=== PATIENT | male | born 1955 | race African-American/Black ===

== ENCOUNTER 2020-12-27 18:12 | Inpatient (IN) | payer MEDICARE ==
[~2020-12-27] VITALS: Ht 165.1 cm; Wt 32.9 kg
[2020-12-27 11:45] VITALS: BP 162/93
--- NOTE | 2020-12-27 19:27 | PHYS DOC ---
Past Medical History Past Medical History: Hypertension, Renal Failure (patient to be set up for peritoneal dialysis) (MARY ANNE ACOSTA) Past Surgical History: Other Additional Past Surgical Histo: neck and back surgery (MARY ANNE ACOSTA) Smoking Status: Never Smoker Alcohol Use: Rarely (MARY ANNE ACOSTA) General Adult EDM: Chief Complaint: SHORTNESS OF BREATH Problems: (1) Shortness of breath (MARY ANNE ACOSTA) HPI: HPI: Patient is a 65 year old male with history of hypertension who presents with shortness of breath for the past few days. Patient states that he was seen with his primary care provider at the [facility] and was provided with an albuterol inhaler at the onset of his symptoms. He states his symptoms have not improved. He reports associated weakness, decreased fluid and water intake, and orthopnea. Patient was vaccinated Gentz COVID-19 with both doses of Moderna vaccine in late June/early July. He denies having been tested for Covid at the [facility]. Patient denies fever, chills, headache, vision changes, chest pain, palpitations, cough. (MARY ANNE ACOSTA) Review of Systems: Review of Systems: Constitutional: See HPI. Eyes: Denies change in visual acuity, vision field changes. HENT: Denies nasal congestion or sore throat. Respiratory: See HPI. Cardiovascular: See HPI. Musculoskeletal: Denies back pain or joint pain. Integument: Denies rash, abrasion, other lesions. Neurologic: Denies headache, focal weakness or sensory changes. (MARY ANNE ACOSTA) Heart Score: C/O Chest Pain: No (MARY ANNE ACOSTA) Current Medications: Current Medications Medications (Trade) Dose Ordered Sig/Fabio Start Time Stop Time Status Last Admin Dose Admin Sodium Chloride 1,000 ml @ 1,000 mls/hr 1X ONCE 12/27/20 19:30 12/27/20 20:29 UNV (MARY ANNE ACOSTA) Allergies: Allergies: Allergies Coded Allergies Type Severity Reaction Last Updated Verified No Known Drug Allergies 12/27/20 No (MARY ANNE ACOSTA) Physical Exam: PE: Constitutional: Thin, well groomed, no acute distress, non-toxic appearance. HENT: Normocephalic, atraumatic, bilateral external ears normal, oropharynx appears dehydrated, no oral exudates, nose normal. Eyes: Conjunctiva normal, no discharge. Neck: Normal range of motion, no tenderness, supple, no stridor. Cardiovascular: Heart rate regular rhythm, no murmur. Lungs & Thorax: Patient is to tachypneic and only speaks in short phrases, accessory muscle use, decreased breath sounds on right side and bilateral bases. Skin: Pallor of nailbeds and poor skin turgor. Skin otherwise warm, dry, no erythema, no rash. Extremities: No tenderness, no cyanosis, no clubbing, ROM intact, no edema, distal pulses intact. Neurologic: Alert and oriented X 3, strength 5/5 in extremities x4, normal sensory function, no focal deficits noted. (MARY ANNE ACOSTA) Current Patient Data: Labs: Laboratory Tests Test 12/27/20 19:30 White Blood Count 4.8 x10^3/uL (4.0-11.0) Red Blood Count 3.39 x10^6/uL (4.30-5.70) Hemoglobin 9.8 g/dL (13.0-17.5) Hematocrit 29.9 % (39.0-53.0) Mean Corpuscular Volume 88 fL (79-100) Mean Corpuscular Hemoglobin 29 pg (25-35) Mean Corpuscular Hemoglobin Concent 33 g/dL (31-37) Red Cell Distribution Width 15.5 % (11.5-14.5) Platelet Count 393 x10^3/uL (140-400) Neutrophils (%) (Auto) 69 % (31-73) Lymphocytes (%) (Auto) 14 % (24-48) Monocytes (%) (Auto) 10 % (0-9) Eosinophils (%) (Auto) 5 % (0-3) Basophils (%) (Auto) 2 % (0-3) Neutrophils # (Auto) 3.3 x10^3/uL (1.8-7.7) Lymphocytes # (Auto) 0.7 x10^3/uL (1.0-4.8) Monocytes # (Auto) 0.5 x10^3/uL (0.0-1.1) Eosinophils # (Auto) 0.2 x10^3/uL (0.0-0.7) Basophils # (Auto) 0.1 x10^3/uL (0.0-0.2) Sodium Level 143 mmol/L (136-145) Potassium Level 4.5 mmol/L (3.5-5.1) Chloride Level 108 mmol/L (98-107) Carbon Dioxide Level 18 mmol/L (21-32) Anion Gap 17 (6-14) Blood Urea Nitrogen 72 mg/dL (8-26) Creatinine 7.0 mg/dL (0.7-1.3) Estimated GFR (Cockcroft-Gault) 9.6 Glucose Level 100 mg/dL (70-99) Calcium Level 9.1 mg/dL (8.5-10.1) Troponin I Quantitative 0.196 ng/mL (0.000-0.055) SI-Vwv-V-Type Natriuretic Peptide > 62532 pg/mL (0-124) Influenza Type A Antigen Negative (NEGATIVE) Influenza Type B Antigen Negative (NEGATIVE) SARS-CoV-2 Antigen (Rapid) Negative (NEGATIVE) Vital Signs: Vital Signs Date Time Temp Pulse Resp B/P (MAP) Pulse Ox O2 Delivery O2 Flow Rate FiO2 12/27/20 19:16 82 34 194/118 (143) 97 Room Air 12/27/20 19:08 97.2 97.2 (MARY ANNE ACOSTA) EKG: EKG: EKG Interpreted by Dr. Bailey: Rate 84bpm and regular rhythm with no ectopic beats. LVH. Prolonged QT interval. T wave inversion, no STEMI. (MARY ANNE ACOSTA) Radiology/Procedures: Radiology/Procedures: PROCEDURE: PORTABLE CHEST 1V Exam: Chest one view INDICATION: Shortness of breath TECHNIQUE: Frontal view of the chest Comparisons: None FINDINGS: The cardiomediastinal silhouette and pulmonary vessels are within normal limits. Patchy right basilar airspace disease. No pleural effusion. IMPRESSION: Patchy right basilar airspace disease may be infectious or inflammatory in etiology. Electronically signed by: Michelle Veloz MD (12/27/2020 9:35 PM) [facility] ([facility] ANNE ACOSTA) Course & Med Decision Making: Course & Med Decision Making Pertinent Labs and Imaging studies reviewed. (See chart for details) Due to patient's age and chief complaint of shortness of breath, patient will be tested for Covid as well as flu. Patient appears to be dehydrated and extremities are nonedematous, so fluids will be provided to improve hydration status. Labs show anemia and decreased kidney function, which is consistent with ESRD. Troponin is elevated at 0.196. We have no prior values to compare, so serial troponins will be ordered. BNP was over 35,000, patient will be admitted to hospitalist. Bed requested 21:10. (MARY ANNE ACOSTA) Course & Med Decision Making I have reviewed and was available for consultation in the emergency department for this patient that was seen by midlevel provider. Agree with plan. I ordered serial troponins due to elevated troponin, patient with history of chronic kidney disease Aditya Bailey DO (ADITYA BAILEY DO) Constanceon Disclaimer: Vahid Disclaimer: This electronic medical record was generated, in whole or in part, using a voice recognition dictation system. (MARY ANNE ACOSTA) Departure Departure Impression: Primary Impression: Shortness of breath Additional Impressions: Elevated brain natriuretic peptide (BNP) level ESRD (end stage renal disease) Disposition: ADMITTED INPATIENT Admitting Physician: EVERARDO Mitchell) (MARY ANNE ACOSTA) Condition: GUARDED MARY ANNE ACOSTA Dec 27, 2020 19:27 ADITYA BAILEY DO Dec 28, 2020 01:12
[2020-12-27] MEDS ORDERED: IV NORMAL SALINE 1000ML BAG 1,000 ML IV ONE (19:30)
[2020-12-27 19:48] LABS: BASO # 0.1 x10^3/uL (0.0-0.2); BASO % 2 % (0-3); EOS # 0.2 x10^3/uL (0.0-0.7); EOS % 5 % (0-3); HEMATOCRIT 29.9 % (39.0-53.0); HEMOGLOBIN 9.8 g/dL (13.0-17.5); LYMPH # 0.7 x10^3/uL (1.0-4.8); LYMPH % 14 % (24-48); MEAN CORPUSCULAR HEMOGLOBIN 29 pg (25-35); MEAN CORPUSCULAR HGB CONC 33 g/dL (31-37); MEAN CORPUSCULAR VOLUME 88 fL (79-100); MONO # 0.5 x10^3/uL (0.0-1.1); MONO % 10 % (0-9); NEUT # 3.3 x10^3/uL (1.8-7.7); NEUT % 69 % (31-73); PLATELET COUNT 393 x10^3/uL (140-400); RED BLOOD COUNT 3.39 x10^6/uL (4.30-5.70); RED CELL DISTRIBUTION WIDTH 15.5 % (11.5-14.5); WHITE BLOOD COUNT 4.8 x10^3/uL (4.0-11.0)
[2020-12-27 19:59] LABS: CALCIUM 9.1 mg/dL (8.5-10.1); GFR 9.6; POTASSIUM 4.5 mmol/L (3.5-5.1)
[2020-12-27 20:03] LABS: INFLUENZA A PATIENT NEGATIVE (NEGATIVE); INFLUENZA B PATIENT NEGATIVE (NEGATIVE)
[2020-12-27] MEDS ORDERED: LABETALOL 20 MG/4 ML DISP.SYRIN. IVP ONE (21:30)
--- NOTE | 2020-12-27 21:38 | RAD ---
Exam: Chest one view INDICATION: Shortness of breath TECHNIQUE: Frontal view of the chest Comparisons: None FINDINGS: The cardiomediastinal silhouette and pulmonary vessels are within normal limits. Patchy right basilar airspace disease. No pleural effusion. IMPRESSION: Patchy right basilar airspace disease may be infectious or inflammatory in etiology. Electronically signed by: Michelle Veloz MD (12/27/2020 9:35 PM) [facility]
[2020-12-28] MEDS ORDERED: GABA600T7 PO (02:38)
[2020-12-28] MEDS ORDERED: FLUO40CA2 PO (02:38)
[2020-12-28] MEDS ORDERED: FERR325T14 PO (02:38)
[2020-12-28] MEDS ORDERED: MELA3TAB4 PO (02:38)
[2020-12-28] MEDS ORDERED: HYDR-2868 PO (02:38)
[2020-12-28] MEDS ORDERED: DOCU-109 PO (02:38)
[2020-12-28] MEDS ORDERED: CHOL10004 PO (02:38)
[2020-12-28 02:47] VITALS: BP 159/90
--- NOTE | 2020-12-28 02:48 | EKG ---
[facility] [address] [place] [address] Test Date: 2020-12-27 Test Time: 20:16:56 Pat Name: KEITH MARIE Department: Room: [facility] Gender: M [employer] [id number] Technical Lead: : 1955 Requested By: MARY ANNE ACOSTA Order Number: [id number] Reading MD: Hardik Saeed MD Measurements Intervals [place] Rate: 84 P: 48 MS: 114 QRS: -46 QRSD: 116 T: 149 QT: 432 QTc: 514 Interpretive Statements SINUS RHYTHM LEFT ATRIAL ABNORMALITY ABNORMAL LEFT AXIS DEVIATION LEFT ANTERIOR FASCICULAR BLOCK LVH WITH REPOLARIZATION ABNORMALITY PROLONGED QT ABNORMAL ECG Electronically Signed On 12-28-2020 9:16:40 CDT by Hardik Saeed MD
[2020-12-28 07:00] VITALS: BP 175/100
[2020-12-28] MEDS ORDERED: DOCUSATE SODIUM 100 MG CAPSULE. PO PRN (07:15)
--- NOTE | 2020-12-28 07:24 | PDOC1 ---
History and Physical Date of Admission Date of Admission DATE: 12/28/20 TIME: 07:06 Identification/Chief Complaint Chief Complaint Shortness of breath Source Source: Chart review, Patient History of Present Illness History of Present Illness Mr Diego is a 65 year old male with history of hypertension who presents with shortness of breath for the past few days. Patient states that he was seen with his primary care provider at the [facility] and was provided with an albuterol inhaler at the onset of his symptoms. He states his symptoms have not improved. He reports associated weakness, decreased fluid and water intake, and orthopnea. Patient has been vaccinated against COVID-19 with both doses of Moderna vaccine in late June/early July. He denies having been tested for Covid at the [facility]. Patient denies fever, chills, headache, vision changes, chest pain, palpi tations, cough. He does note some memory problems and confusion WBC 4.8, Hb 9.8, platelets 393, NA 143, K4.5, BUN 70, CR 7, glucose 100, trop 0.196->0.217->0.222->0.190, NT proBNP 35,000. Rapid influenza negative rapid COVID-19 negative EKG sinus rate of 84 bpm, underlying paced rhythm noted left axis deviation QTC 514. No ST segment elevations T WI V3 V4 V5 V6 and lead I. Chest radiograph with right basilar haziness. Admitted for further care. Past Medical History Cardiovascular: HTN Renal/: Chronic renal failure Past Surgical History Past Surgical History Cervical, lumbar Family History Family History: Hypertension Social History Smoke: No ALCOHOL: rare Drugs: None Current Problem List Problem List Problems Medical Problems: (1) Elevated brain natriuretic peptide (BNP) level Status: Acute (2) ESRD (end stage renal disease) Status: Acute Current Medications Current Medications Current Medications Sodium Chloride 1,000 ml @ 1,000 mls/hr 1X ONCE IV Last administered on 12/27/20at 19:30; Start 12/27/20 at 19:30; Stop 12/27/20 at 20:29; Status DC Labetalol HCl (Normodyne Iv Push) 10 mg 1X ONCE IVP Last administered on 12/27/20at 21:07; Start 12/27/20 at 21:30; Stop 12/27/20 at 21:31; Status DC Albuterol Sulfate (Ventolin Hfa) 1 puff PRN Q4HRS PRN INH SHORTNESS OF BREATH; Start 12/28/20 at 03:30 Active Scripts Active Reported Colace (Docusate Sodium) 100 Mg Capsule 1 Cap PO BID PRN 30 Days Melatonin 3 Mg Tablet 3 Tab PO QHS Vitamin D3 (Vitamin D) 25 Mcg Tablet 25 Mcg PO DAILY 1,000 UNITS = 25 MCG Ferrous Sulfate 325 Mg Tablet 1 Tab PO DAILY Hydralazine Hcl 25 Mg Tablet 1 Tab PO BID Fluoxetine Hcl 40 Mg Capsule 1 Cap PO DAILYWBKFT Gabapentin 600 Mg Tablet 600 Mg PO TID Allergies Allergies: Coded Allergies: No Known Drug Allergies (Unverified , 12/27/20) ROS General: YES: Fatigue, Malaise; No: Chills, Night Sweats, Appetite, Other PSYCHOLOGICAL ROS: YES: Anxiety, Disorientation; No: Behavioral Disorder, Concentration difficultie, Decreased libido, Depression, Hallucinations, Hostility, Irritablity, Memory difficulties, Mood Swings, Obsessive thoughts, Physical abuse, Sexual abuse, Sleep disturbances, Suicidal ideation, Other Eyes: No Blurry vision, No Decreased vision, No Double vision, No Dry eyes, No Excessive tearing, No Eye Pain, No Itchy Eyes, No Loss of vision, No Photophobia, No Scotomata, No Uses contacts, No Uses glasses, No Other HEENT: No: Heacaches, Visual Changes, Hearing change, Nasal congestion, Nasal discharge, Oral lesions, Sinus pain, Sore Throat, Epistaxis, Sneezing, Snoring, Tinnitus, Vertigo, Vocal changes, Other ALLERGY AND IMMUNOLOGY: No: Hives, Insect Bite Sensitivity, Itchy/Watery Eyes, Nasal Congestion, Post Nasal Drip, Seasonal Allergies, Other Hematological and Lymphatic: No: Bleeding Problems, Blood Clots, Blood Transfusions, Brusing, Night Sweats, Pallor, Swollen Lymph Nodes, Other ENDOCRINE: No: Breast Changes, Galactorrhea, Hair Pattern Changes, Hot Flashes, Malaise/lethargy, Mood Swings, Palpitations, Polydipsia/polyuria, Skin Changes, Temperature Intolerance, Unexpected Weight Changes, Other Breast: No New/Changing Breast Lumps, No Nipple changes, No Nipple discharge, No Other Respiratory: YES: Cough, Shortness of breath, SOB with excertion; No: Hemoptysis, Orthopnea, Pleuritic Pain, Sputum Changes, Stridor, Tachypnea, Wheezing, Other Cardiovascular: No Chest Pain, No Palpitations, No Orthopnea, No Paroxysmal Noc. Dyspnea, No Edema, No Lt Headedness, No Other Gastrointestinal: Yes Nausea; No Vomiting, No Abdominal Pain, No Diarrhea, No Constipation, No Melena, No Hematochezia, No Other Genitourinary: No Dysuria, No Frequency, No Incontinence, No Hematuria, No Retention, No Discharge, No Urgency, No Pain, No Flank Pain, No Other, No , No , No , No , No , No , No Musculoskeletal: No Gait Disturbance, No Joint Pain, No Joint Stiffness, No Joint Swelling, No Muscle Pain, No Muscular Weakness, No Pain In:, No Swelling In:, No Other Neurological: No Behavorial Changes, No Bowel/Bladder ControlChng, No Co nfusion, No Dizziness, No Gait Disturbance, No Headaches, No Impaired Coord/balance, No Memory Loss, No Numbness/Tingling, No Seizures, No Speech Problems, No Tremors, No Visual Changes, No Weakness, No Other Skin: No Dry Skin, No Eczema, No Hair Changes, No Lumps, No Mole Changes, No Mottling, No Nail Changes, No Pruritus, No Rash, No Skin Lesion Changes, No Other, No Acne Physical Exam General: Alert, Cooperative, mild distress HEENT: Atraumatic, PERRLA, EOMI, Mucous membr. moist/pink Lungs: Other (Bibasilar crackles) Heart: S1S2, RRR, no thrills, no rubs Abdomen: Normal bowel sounds, Soft, No tenderness, No hepatosplenomegaly, No masses Rectal Exam: not examined Extremities: No clubbing, No cyanosis, No edema, Normal pulses, No tenderness/swelling Skin: No rashes, No breakdown, No significant lesion Neuro: Normal speech, Strength at 5/5 X4 ext, Normal tone, Sensation intact, Cranial nerves 3-12 NL, Reflexes 2+ Vitals Vitals Vital Signs Date Time Temp Pulse Resp B/P (MAP) Pulse Ox O2 Delivery O2 Flow Rate FiO2 12/28/20 02:47 95.7 68 18 159/90 (113) 99 Nasal Cannula 2.0 95.7 Labs Labs Laboratory Tests Test 12/27/20 19:30 12/28/20 00:55 12/28/20 01:32 12/28/20 04:20 White Blood Count 4.8 x10^3/uL (4.0-11.0) Red Blood Count 3.39 x10^6/uL (4.30-5.70) Hemoglobin 9.8 g/dL (13.0-17.5) Hematocrit 29.9 % (39.0-53.0) Mean Corpuscular Volume 88 fL (79-100) Mean Corpuscular Hemoglobin 29 pg (25-35) Mean Corpuscular Hemoglobin Concent 33 g/dL (31-37) Red Cell Distribution Width 15.5 % (11.5-14.5) Platelet Count 393 x10^3/uL (140-400) Neutrophils (%) (Auto) 69 % (31-73) Lymphocytes (%) (Auto) 14 % (24-48) Monocytes (%) (Auto) 10 % (0-9) Eosinophils (%) (Auto) 5 % (0-3) Basophils (%) (Auto) 2 % (0-3) Neutrophils # (Auto) 3.3 x10^3/uL (1.8-7.7) Lymphocytes # (Auto) 0.7 x10^3/uL (1.0-4.8) Monocytes # (Auto) 0.5 x10^3/uL (0.0-1.1) Eosinophils # (Auto) 0.2 x10^3/uL (0.0-0.7) Basophils # (Auto) 0.1 x10^3/uL (0.0-0.2) Sodium Level 143 mmol/L (136-145) Potassium Level 4.5 mmol/L (3.5-5.1) Chloride Level 108 mmol/L (98-107) Carbon Dioxide Level 18 mmol/L (21-32) Anion Gap 17 (6-14) Blood Urea Nitrogen 72 mg/dL (8-26) Creatinine 7.0 mg/dL (0.7-1.3) Estimated GFR (Cockcroft-Gault) 9.6 Glucose Level 100 mg/dL (70-99) Calcium Level 9.1 mg/dL (8.5-10.1) Troponin I Quantitative 0.196 ng/mL (0.000-0.055) 0.217 ng/mL (0.000-0.055) 0.222 ng/mL (0.000-0.055) 0.190 ng/mL (0.000-0.055) SM-Qja-N-Type Natriuretic Peptide > 68928 pg/mL (0-124) Influenza Type A Antigen Negative (NEGATIVE) Influenza Type B Antigen Negative (NEGATIVE) SARS-CoV-2 Antigen (Rapid) Negative (NEGATIVE) Laboratory Tests Test 12/27/20 19:30 12/28/20 00:55 12/28/20 01:32 12/28/20 04:20 White Blood Count 4.8 x10^3/uL (4.0-11.0) Red Blood Count 3.39 x10^6/uL (4.30-5.70) Hemoglobin 9.8 g/dL (13.0-17.5) Hematocrit 29.9 % (39.0-53.0) Mean Corpuscular Volume 88 fL (79-100) Mean Corpuscular Hemoglobin 29 pg (25-35) Mean Corpuscular Hemoglobin Concent 33 g/dL (31-37) Red Cell Distribution Width 15.5 % (11.5-14.5) Platelet Count 393 x10^3/uL (140-400) Neutrophils (%) (Auto) 69 % (31-73) Lymphocytes (%) (Auto) 14 % (24-48) Monocytes (%) (Auto) 10 % (0-9) Eosinophils (%) (Auto) 5 % (0-3) Basophils (%) (Auto) 2 % (0-3) Neutrophils # (Auto) 3.3 x10^3/uL (1.8-7.7) Lymphocytes # (Auto) 0.7 x10^3/uL (1.0-4.8) Monocytes # (Auto) 0.5 x10^3/uL (0.0-1.1) Eosinophils # (Auto) 0.2 x10^3/uL (0.0-0.7) Basophils # (Auto) 0.1 x10^3/uL (0.0-0.2) Sodium Level 143 mmol/L (136-145) Potassium Level 4.5 mmol/L (3.5-5.1) Chloride Level 108 mmol/L (98-107) Carbon Dioxide Level 18 mmol/L (21-32) Anion Gap 17 (6-14) Blood Urea Nitrogen 72 mg/dL (8-26) Creatinine 7.0 mg/dL (0.7-1.3) Estimated GFR (Cockcroft-Gault) 9.6 Glucose Level 100 mg/dL (70-99) Calcium Level 9.1 mg/dL (8.5-10.1) Troponin I Quantitative 0.196 ng/mL (0.000-0.055) 0.217 ng/mL (0.000-0.055) 0.222 ng/mL (0.000-0.055) 0.190 ng/mL (0.000-0.055) RO-Tjy-L-Type Natriuretic Peptide > 72810 pg/mL (0-124) Influenza Type A Antigen Negative (NEGATIVE) Influenza Type B Antigen Negative (NEGATIVE) SARS-CoV-2 Antigen (Rapid) Negative (NEGATIVE) Images Images Chest radiograph: The cardiomediastinal silhouette and pulmonary vessels are within normal limits. Patchy right basilar airspace disease. No pleural effusion. IMPRESSION: Patchy right basilar airspace disease may be infectious or inflammatory in etiology. VTE Prophylaxis Ordered VTE Prophylaxis Devices: No VTE Pharmacological Prophylaxi: Yes Assessment/Plan Assessment/Plan A/P: Acute renal failure - on CKD, likely is ESRD. Nephrology consulted, urgent HD catheter placement consented bedside Shortness of breath - likely acute chf due to fluid overload from renal failure Anemia - likely due to chronic renal disease Hypertensive urgency - prn hydralazine Acute probable diastolic CHF Mild troponin elevation; peak 0.22. Most probably type II, demand ischemia due to renal failure FEN - NPO PPX - heparin FULL CODE Dispo - inpatient Justifications for Admission Other Justification BRITTNEY SALAS MD Dec 28, 2020 07:23
[2020-12-28] MEDS ORDERED: hydrALAZINE 20 MG/ML VIAL. IVP PRN (07:30)
[2020-12-28] MEDS ORDERED: ONDANSETRON PF 4 MG/2 ML VIAL. IVP PRN (07:30)
[2020-12-28] MEDS ORDERED: ACETAMINOPHEN 325 MG TABLET. PO PRN (07:30)
[2020-12-28] MEDS: ALBUTEROL SULFATE 8GM INHALER. INH PRN (09:07)
[2020-12-28] MEDS: hydrALAZINE 25 MG TABLET PO SCH ×2 (09:07→21:41)
[2020-12-28] MEDS: GABAPENTIN 100 MG CAPSULE. PO SCH ×3 (09:07→21:41)
[2020-12-28] MEDS: FLUoxetine HCL 20 MG CAPSULE PO SCH (09:07)
[2020-12-28 10:40] VITALS: BP 165/100
[2020-12-28] MEDS ORDERED: LIDOCAINE WITH 8.4% SOD BICARB 3 ML DISP.SYRIN. ONE (10:59)
--- NOTE | 2020-12-28 11:02 | NUR ---
SW following. Discussed with RN, pt from home, son lives with him, 2L, cardiac diet. Rapid COVID-19 negative, PCR pending. Nephrology following. SW will continue to follow.
--- NOTE | 2020-12-28 11:11 | PDOC2 ---
CONSULT Date of Consult Date of Consult DATE: 12/28/20 TIME: 11:02 Reason for Consult Reason for Consult: CKD stage 5 Identification/Chief Complaint Chief Complaint shortness of breath Source Source: Chart review, Patient History of Present Illness Reason for Visit: Patient is a 65 year old AA with history of hypertension,he presents with shortness of breath for the past few days. Patient states that he was seen with [facility] and was provided with an albuterol inhaler at the onset of his symptoms. He states his symptoms have not improved. He reports associated weakness, decreased fluid and water intake, and orthopnea. Patient was vaccinated COVID-19 with both doses of Moderna vaccine in late June/early July. He denies having been tested for Covid at the [facility]. Patient denies fever, chills, headache, vision changes, chest pain, palpitations, cough.Denies any urinary complaints He states his kidney function is 9% and he was being scheduled for PD catheter placement Past Medical History Cardiovascular: HTN Renal/: Chronic renal failure Past Surgical History Past Surgical History Cervical, lumbar Family History Family History Hypertension Social History Social History Smoke: No ALCOHOL: rare Drugs: None Current Problem List Problem List Problems Medical Problems: (1) Elevated brain natriuretic peptide (BNP) level Status: Acute (2) ESRD (end stage renal disease) Status: Acute Current Medications Current Medications Current Medications Sodium Chloride 1,000 ml @ 1,000 mls/hr 1X ONCE IV Last administered on 12/27/20at 19:30; Start 12/27/20 at 19:30; Stop 12/27/20 at 20:29; Status DC Labetalol HCl (Normodyne Iv Push) 10 mg 1X ONCE IVP Last administered on 12/27/20at 21:07; Start 12/27/20 at 21:30; Stop 12/27/20 at 21:31; Status DC Albuterol Sulfate (Ventolin Hfa) 1 puff PRN Q4HRS PRN INH SHORTNESS OF BREATH Last administered on 12/28/20at 09:07; Start 12/28/20 at 03:30 Docusate Sodium (Colace) 100 mg PRN BID PRN PO CONSTIPATION; Start 12/28/20 at 07:15 Hydralazine HCl (Apresoline) 25 mg BID PO Last administered on 12/28/20at 09:07; Start 12/28/20 at 09:00 Fluoxetine HCl (PROzac) 40 mg DAILYWBKFT PO Last administered on 12/28/20at 09:07; Start 12/28/20 at 08:00 Gabapentin (Neurontin) 100 mg TID PO Last administered on 12/28/20at 09:07; Start 12/28/20 at 09:00 Ondansetron HCl (Zofran) 4 mg PRN Q4HRS PRN IVP NAUSEA/VOMITING; Start 12/28/20 at 07:30 Tramadol HCl (Ultram) 50 mg PRN Q6HRS PRN PO PAIN; Start 12/28/20 at 07:30 Acetaminophen (Tylenol) 650 mg PRN Q6HRS PRN PO MILD PAIN / TEMP > 100.3'F; Start 12/28/20 at 07:30 Hydralazine HCl (Apresoline Inj) 10 mg PRN Q4HRS PRN IVP ELEVATED BP, SEE COMMENTS; Start 12/28/20 at 07:30 Lidocaine HCl (Buffered Lidocaine 1%) 3 ml STK-MED ONCE .ROUTE ; Start 12/28/20 at 10:59; Stop 12/28/20 at 11:00; Status DC Active Scripts Active Reported Colace (Docusate Sodium) 100 Mg Capsule 1 Cap PO BID PRN 30 Days Melatonin 3 Mg Tablet 3 Tab PO QHS Vitamin D3 (Vitamin D) 25 Mcg Tablet 25 Mcg PO DAILY 1,000 UNITS = 25 MCG Ferrous Sulfate 325 Mg Tablet 1 Tab PO DAILY Hydralazine Hcl 25 Mg Tablet 1 Tab PO BID Fluoxetine Hcl 40 Mg Capsule 1 Cap PO DAILYWBKFT Gabapentin 600 Mg Tablet 600 Mg PO TID Allergies Allergies: Coded Allergies: No Known Drug Allergies (Unverified , 12/27/20) ROS Review of System As per HPI, rest of the ROS is negative Physical Exam Physical Exam General- propped up in med, in moderate distress HEN OM mildly dry , On o2 by NC Neck supple Lungs decreased at bases, ;abored breathing CV S1S2 Abd soft, NT Ext No LE edema No reina Skin No rash Vital Signs Vital Signs Date Time Temp Pulse Resp B/P (MAP) Pulse Ox O2 Delivery O2 Flow Rate FiO2 12/28/20 09:07 98 175/100 12/28/20 07:00 96.5 24 98 Nasal Cannula 2.0 96.5 Assessment & Plan CKD stage 5 - will start dialysis ,1st treatment today get temp HDC, change to Tuneled prior to Discharge . He is a - OP chair time per [facility]. Discussed treatment plan with Lonny Per patient report he is following with nephrology at [facility] and plan was to get PD catheter placement soon . He will have to be started with HD and can switch PD thru his nephologist at [facility]. Discussed with patient , he verbalized understanding Ac Resp failure - CXr Patchy right basilar airspace disease may be infectious or inflammatory in etiology.BNP elevated Anemia- baseline unknown HTN - accelerated HTN , Home antihypertensives , dialysis today Labs Labs Laboratory Tests Test 12/27/20 19:30 12/28/20 00:55 12/28/20 01:32 12/28/20 04:20 White Blood Count 4.8 x10^3/uL (4.0-11.0) Red Blood Count 3.39 x10^6/uL (4.30-5.70) Hemoglobin 9.8 g/dL (13.0-17.5) Hematocrit 29.9 % (39.0-53.0) Mean Corpuscular Volume 88 fL (79-100) Mean Corpuscular Hemoglobin 29 pg (25-35) Mean Corpuscular Hemoglobin Concent 33 g/dL (31-37) Red Cell Distribution Width 15.5 % (11.5-14.5) Platelet Count 393 x10^3/uL (140-400) Neutrophils (%) (Auto) 69 % (31-73) Lymphocytes (%) (Auto) 14 % (24-48) Monocytes (%) (Auto) 10 % (0-9) Eosinophils (%) (Auto) 5 % (0-3) Basophils (%) (Auto) 2 % (0-3) Neutrophils # (Auto) 3.3 x10^3/uL (1.8-7.7) Lymphocytes # (Auto) 0.7 x10^3/uL (1.0-4.8) Monocytes # (Auto) 0.5 x10^3/uL (0.0-1.1) Eosinophils # (Auto) 0.2 x10^3/uL (0.0-0.7) Basophils # (Auto) 0.1 x10^3/uL (0.0-0.2) Sodium Level 143 mmol/L (136-145) Potassium Level 4.5 mmol/L (3.5-5.1) Chloride Level 108 mmol/L (98-107) Carbon Dioxide Level 18 mmol/L (21-32) Anion Gap 17 (6-14) Blood Urea Nitrogen 72 mg/dL (8-26) Creatinine 7.0 mg/dL (0.7-1.3) Estimated GFR (Cockcroft-Gault) 9.6 Glucose Level 100 mg/dL (70-99) Calcium Level 9.1 mg/dL (8.5-10.1) Troponin I Quantitative 0.196 ng/mL (0.000-0.055) 0.217 ng/mL (0.000-0.055) 0.222 ng/mL (0.000-0.055) 0.190 ng/mL (0.000-0.055) VP-Jpn-P-Type Natriuretic Peptide > 34042 pg/mL (0-124) Influenza Type A Antigen Negative (NEGATIVE) Influenza Type B Antigen Negative (NEGATIVE) SARS-CoV-2 Antigen (Rapid) Negative (NEGATIVE) Test 12/28/20 07:20 Troponin I Quantitative 0.174 ng/mL (0.000-0.055) Laboratory Tests Test 12/27/20 19:30 12/28/20 00:55 12/28/20 01:32 12/28/20 04:20 White Blood Count 4.8 x10^3/uL (4.0-11.0) Red Blood Count 3.39 x10^6/uL (4.30-5.70) Hemoglobin 9.8 g/dL (13.0-17.5) Hematocrit 29.9 % (39.0-53.0) Mean Corpuscular Volume 88 fL (79-100) Mean Corpuscular Hemoglobin 29 pg (25-35) Mean Corpuscular Hemoglobin Concent 33 g/dL (31-37) Red Cell Distribution Width 15.5 % (11.5-14.5) Platelet Count 393 x10^3/uL (140-400) Neutrophils (%) (Auto) 69 % (31-73) Lymphocytes (%) (Auto) 14 % (24-48) Monocytes (%) (Auto) 10 % (0-9) Eosinophils (%) (Auto) 5 % (0-3) Basophils (%) (Auto) 2 % (0-3) Neutrophils # (Auto) 3.3 x10^3/uL (1.8-7.7) Lymphocytes # (Auto) 0.7 x10^3/uL (1.0-4.8) Monocytes # (Auto) 0.5 x10^3/uL (0.0-1.1) Eosinophils # (Auto) 0.2 x10^3/uL (0.0-0.7) Basophils # (Auto) 0.1 x10^3/uL (0.0-0.2) Sodium Level 143 mmol/L (136-145) Potassium Level 4.5 mmol/L (3.5-5.1) Chloride Level 108 mmol/L (98-107) Carbon Dioxide Level 18 mmol/L (21-32) Anion Gap 17 (6-14) Blood Urea Nitrogen 72 mg/dL (8-26) Creatinine 7.0 mg/dL (0.7-1.3) Estimated GFR (Cockcroft-Gault) 9.6 Glucose Level 100 mg/dL (70-99) Calcium Level 9.1 mg/dL (8.5-10.1) Troponin I Quantitative 0.196 ng/mL (0.000-0.055) 0.217 ng/mL (0.000-0.055) 0.222 ng/mL (0.000-0.055) 0.190 ng/mL (0.000-0.055) WX-Ajs-C-Type Natriuretic Peptide > 61945 pg/mL (0-124) Influenza Type A Antigen Negative (NEGATIVE) Influenza Type B Antigen Negative (NEGATIVE) SARS-CoV-2 Antigen (Rapid) Negative (NEGATIVE) Test 12/28/20 07:20 Troponin I Quantitative 0.174 ng/mL (0.000-0.055) Review All relevant outside records, renal labs, imaging studies, telemetry/EKG's were reviewed. Images Images Exam: Chest one view INDICATION: Shortness of breath TECHNIQUE: Frontal view of the chest Comparisons: None FINDINGS: The cardiomediastinal silhouette and pulmonary vessels are within normal limits. Patchy right basilar airspace disease. No pleural effusion. IMPRESSION: Patchy right basilar airspace disease may be infectious or inflammatory in etiology. TREVIN KANG MD Dec 28, 2020 11:11
[2020-12-28] MEDS ORDERED: LIDOCAINE WITH 8.4% SOD BICARB 3 ML DISP.SYRIN. INJ ONE (11:15)
[2020-12-28 11:45] LABS: CALCIUM 8.7 mg/dL (8.5-10.1); CREATININE 6.8 mg/dL (0.7-1.3); GFR 9.9; POTASSIUM 4.5 mmol/L (3.5-5.1)
[2020-12-28] MEDS ORDERED: IV NORMAL SALINE 1000ML BAG 1,000 ML IV PRN ×2 (12:30)
[2020-12-28] MEDS ORDERED: DIALYSIS PATIENT. MC PRN (12:30)
--- NOTE | 2020-12-28 13:38 | PDOC2 ---
NIMCO MILAN WOUND/OSTOMY NURSE 12/28/20 1338: CARDIAC CONSULT DATE OF CONSULT Date of Consult DATE: 12/28/20 TIME: 13:32 REASON FOR CONSULT Reason for Consult: CHF REFERRING PHYSICIAN Referring Physician: Dr. Zimmer SOURCE Source: Chart review, Patient HISTORY OF PRESENT ILLNESS HISTORY OF PRESENT ILLNESS This is a 65 yo male who presented secondary to shortness of breath for the last couple of week. Worse in the last 2 days. Has a history of CKD, near ESRD. [facility]. Was noted wtih CHF upon arrival, which prompted this consult. HD catheter was placed and patient presently getting first round of dialysis. Denies any chest pain, palpitations, dizziness, diaphoresis, or nausea/vomiting. No recent LE edema. Reports breathing has improved some. PAST MEDICAL HISTORY Cardiovascular: HTN CENTRAL NERVOUS SYSTEM: Periperal neuropathy Heme/Onc: Anemia NOS Psych: Anxiety, Depression Musculoskeletal: Osteoarthritis Renal/: Chronic renal insuff, Prostate Ca. PAST SURGICAL HISTORY Past Surgical History: Other (spinal surgery ) FAMILY HISTORY Family History: Hypertension SOCIAL HISTORY Smoke: No ALCOHOL: none Drugs: None Lives: with Family CURRENT MEDICATIONS CURRENT MEDICATIONS Current Medications Medications (Trade) Dose Ordered Sig/Fabio Route PRN Reason Start Time Stop Time Status Last Admin Dose Admin Sodium Chloride 1,000 ml @ 1,000 mls/hr 1X ONCE IV 12/27/20 19:30 12/27/20 20:29 DC 12/27/20 19:30 Labetalol HCl (Normodyne Iv Push) 10 mg 1X ONCE IVP 12/27/20 21:30 12/27/20 21:31 DC 12/27/20 21:07 Albuterol Sulfate (Ventolin Hfa) 1 puff PRN Q4HRS PRN INH SHORTNESS OF BREATH 12/28/20 03:30 12/28/20 09:07 Hydralazine HCl (Apresoline) 25 mg BID PO 12/28/20 09:00 12/28/20 09:07 Fluoxetine HCl (PROzac) 40 mg DAILYWBKFT PO 12/28/20 08:00 12/28/20 09:07 Gabapentin (Neurontin) 100 mg TID PO 12/28/20 09:00 12/28/20 09:07 Lidocaine HCl (Buffered Lidocaine 1%) 6 ml 1X ONCE INJ 12/28/20 11:15 12/28/20 11:16 DC 12/28/20 11:31 ALLERGIES ALLERGIES: Coded Allergies: No Known Drug Allergies (Unverified , 12/27/20) ROS Review of System 14 point ROS conducted with pertinent positives noted above in HPI PHYSICAL EXAM General: Alert, Oriented X3, Cooperative, No acute distress HEENT: Atraumatic Lungs: Other (diminished throughout ) Heart: Regular rate Abdomen: Soft, No tenderness Extremities: No edema Skin: No significant lesion Neuro: Normal speech, Sensation intact Psych/Mental Status: Mental status NL, Mood NL MUSCULOSKELETAL: Osteoarthritic changes both hands VITALS/I&O VITALS/I&O: Vital Signs Date Time Temp Pulse Resp B/P (MAP) Pulse Ox O2 Delivery O2 Flow Rate FiO2 12/28/20 10:40 96.4 75 22 165/100 (121) 99 Nasal Cannula 2.0 96.4 LABS Lab: Laboratory Tests Test 12/27/20 19:30 12/28/20 00:55 12/28/20 01:32 12/28/20 04:20 White Blood Count 4.8 x10^3/uL (4.0-11.0) Red Blood Count 3.39 x10^6/uL (4.30-5.70) L Hemoglobin 9.8 g/dL (13.0-17.5) L Hematocrit 29.9 % (39.0-53.0) L Mean Corpuscular Volume 88 fL (79-100) Mean Corpuscular Hemoglobin 29 pg (25-35) Mean Corpuscular Hemoglobin Concent 33 g/dL (31-37) Red Cell Distribution Width 15.5 % (11.5-14.5) H Platelet Count 393 x10^3/uL (140-400) Neutrophils (%) (Auto) 69 % (31-73) Lymphocytes (%) (Auto) 14 % (24-48) L Monocytes (%) (Auto) 10 % (0-9) H Eosinophils (%) (Auto) 5 % (0-3) H Basophils (%) (Auto) 2 % (0-3) Neutrophils # (Auto) 3.3 x10^3/uL (1.8-7.7) Lymphocytes # (Auto) 0.7 x10^3/uL (1.0-4.8) L Monocytes # (Auto) 0.5 x10^3/uL (0.0-1.1) Eosinophils # (Auto) 0.2 x10^3/uL (0.0-0.7) Basophils # (Auto) 0.1 x10^3/uL (0.0-0.2) Sodium Level 143 mmol/L (136-145) Potassium Level 4.5 mmol/L (3.5-5.1) Chloride Level 108 mmol/L (98-107) H Carbon Dioxide Level 18 mmol/L (21-32) L Anion Gap 17 (6-14) H Blood Urea Nitrogen 72 mg/dL (8-26) H Creatinine 7.0 mg/dL (0.7-1.3) H Estimated GFR (Cockcroft-Gault) 9.6 Glucose Level 100 mg/dL (70-99) H Calcium Level 9.1 mg/dL (8.5-10.1) Troponin I Quantitative 0.196 ng/mL (0.000-0.055) 0.217 ng/mL (0.000-0.055) 0.222 ng/mL (0.000-0.055) 0.190 ng/mL (0.000-0.055) RG-Tun-V-Type Natriuretic Peptide > 80992 pg/mL (0-124) H Influenza Type A Antigen Negative (NEGATIVE) Influenza Type B Antigen Negative (NEGATIVE) SARS-CoV-2 RNA (NIEL) Negative (Negative) SARS-CoV-2 Antigen (Rapid) Negative (NEGATIVE) Test 12/28/20 07:20 Sodium Level 142 mmol/L (136-145) Potassium Level 4.5 mmol/L (3.5-5.1) Chloride Level 109 mmol/L (98-107) H Carbon Dioxide Level 19 mmol/L (21-32) L Anion Gap 14 (6-14) Blood Urea Nitrogen 73 mg/dL (8-26) H Creatinine 6.8 mg/dL (0.7-1.3) H Estimated GFR (Cockcroft-Gault) 9.9 Glucose Level 89 mg/dL (70-99) Calcium Level 8.7 mg/dL (8.5-10.1) Troponin I Quantitative 0.174 ng/mL (0.000-0.055) Hepatitis B Surface Antigen Nonreactive (Nonreactive) Hepatitis B Surface Antibody Nonreactive Laboratory Tests 12/27/20 19:30 Laboratory Tests 12/27/20 19:30 12/28/20 07:20 ASSESSMENT/PLAN ASSESSMENT/PLAN 1. Acute respiratory failure secondary to CHF 2. Acute probable diastolic CHF 3. TONA on CKD, now ESRD. 4. Hypertension; labile 5. Mild troponin elevation; peak 0.22. Most probably type II, demand ischemia in setting of above. Recommendations Add ASA Fluid offloading via HD Echo to assess LV systolic function Lipid panel Add lisinopril for BP control Hydralazine IV PRN Plan outpatient ischemic evaluation Supportive care BALBIR HUDSON MD 12/28/20 1545: CARDIAC CONSULT ASSESSMENT/PLAN ASSESSMENT/PLAN Patient seen and examined. Agree with PAN DEVULCANIZER's assessment and plan. Acute respiratory failure secondary to acute on chronic diastolic heart failure. Slight troponin elevation probably demand ischemia. Continue fluid removal with hemodialysis per nephrology team. Check 2D echo to assess LV systolic function and rule out wall motion abnormalities Plan ischemic evaluation as an outpatient Thank you for your consultation NIMCO MILAN APRN Dec 28, 2020 13:38 BALBIR HUDSON MD Dec 28, 2020 15:45
[2020-12-28 16:24] VITALS: BP 150/84
[2020-12-28 19:00] VITALS: BP 134/79
[2020-12-28] MEDS: traMADol 50 MG TABLET PO PRN (21:41)
[2020-12-28 22:43] VITALS: BP 138/84
[2020-12-29 03:00] VITALS: BP 142/74
[2020-12-29 07:00] VITALS: BP 158/94
[2020-12-29] MEDS ORDERED: ALBUMIN HUMAN 25% 100 ML IV PRN (07:45)
[2020-12-29] MEDS ORDERED: IV NORMAL SALINE 1000ML BAG 1,000 ML IV PRN ×2 (07:45)
[2020-12-29] MEDS ORDERED: DIALYSIS PATIENT. MC PRN ×2 (07:45)
[2020-12-29] MEDS: GABAPENTIN 100 MG CAPSULE. PO SCH ×3 (09:00→22:04)
--- NOTE | 2020-12-29 09:42 | PDOC ---
DATE OF SERVICE DATE: 12/29/20 TIME: 09:41 SUBJECTIVE ROS Breathing appears to be better. No N/V No complaints on dialysis yesterday OBJECTIVE Vital Signs Vital Signs Date Time Temp Pulse Resp B/P (MAP) Pulse Ox O2 Delivery O2 Flow Rate FiO2 12/29/20 07:00 98.8 82 17 158/94 (115) 96 Nasal Cannula 2.0 98.8 I & 0 Intake and Output 12/29/20 07:00 Output Total 175 ml Balance -175 ml Output Urine Total 175 ml # Voids 3 # Bowel Movements 2 PHYSICAL EXAM Physical Exam General- propped up in bed , NAD HEN OM moist , On o2 by NC Neck supple Lungs decreased at bases, Non labored CV S1S2 Abd soft, NT Ext No LE edema No reina Skin No rash DIAGNOSIS/ASSESSMENT Assessment & Plan new Onset ESRD - initiated HD on 12/28, tolerated well, with 2 Lt UF. 2nd treatment today . Discussed treatment plan with [facility] HDC, change to Tuneled prior to Discharge . He is a - OP chair time per [place]. Per patient report he is following with nephrology at [place] and plan was to get PD catheter placement soon . He will have to be started with HD and can switch PD thru his nephologist at [place]. Discussed with patient , he verbalized understanding Ac Resp failure - CXr Patchy right basilar airspace disease may be infectious or inflammatory in etiology.BNP elevated Anemia- baseline unknown HTN - accelerated HTN , Home antihypertensives , dialysis today COMMENT/RELEVANT DATA Meds Current Medications Medications (Trade) Dose Ordered Sig/Fabio Start Time Stop Time Status Last Admin Dose Admin Acetaminophen (Tylenol) 650 mg PRN Q6HRS PRN 12/28/20 07:30 Albumin Human 100 ml @ 100 mls/hr 1X PRN PRN 12/29/20 07:45 12/29/20 13:44 Albuterol Sulfate (Ventolin Hfa) 1 puff PRN Q4HRS PRN 12/28/20 03:30 12/28/20 09:07 1 PUFF Aspirin (Ecotrin) 81 mg DAILYWBKFT 12/29/20 08:00 Docusate Sodium (Colace) 100 mg PRN BID PRN 12/28/20 07:15 Fluoxetine HCl (PROzac) 40 mg DAILYWBKFT 12/28/20 08:00 12/28/20 09:07 40 MG Gabapentin (Neurontin) 100 mg TID 12/28/20 09:00 12/28/20 21:41 100 MG Hydralazine HCl (Apresoline Inj) 10 mg PRN Q4HRS PRN 12/28/20 07:30 Hydralazine HCl (Apresoline) 25 mg BID 12/28/20 09:00 12/28/20 21:41 25 MG Info (PHARMACY MONITORING -- do not chart) 1 each PRN DAILY PRN 12/29/20 07:45 Labetalol HCl (Normodyne Iv Push) 10 mg 1X ONCE 12/27/20 21:30 12/27/20 21:31 DC 12/27/20 21:07 10 MG Lidocaine HCl (Buffered Lidocaine 1%) 6 ml 1X ONCE 12/28/20 11:15 12/28/20 11:16 DC 12/28/20 11:31 3 ML Lisinopril (Prinivil) 10 mg DAILY 12/29/20 09:00 Ondansetron HCl (Zofran) 4 mg PRN Q4HRS PRN 12/28/20 07:30 Sodium Chloride 1,000 ml @ 400 mls/hr Q2H30M PRN 12/29/20 07:45 12/29/20 19:44 Tramadol HCl (Ultram) 50 mg PRN Q6HRS PRN 12/28/20 07:30 12/28/20 21:41 50 MG Results All relevant outside records, renal labs, imaging studies, telemetry/EKG's were reviewed. Justicifation of Admission Dx: Justifications for Admission: Justification of Admission Dx: N/A TREVIN KANG MD Dec 29, 2020 09:42
--- NOTE | 2020-12-29 09:48 | PDOC ---
VERONIKA GALDAMEZ APRN 12/29/20 0948: CARDIO Progress Notes Date and Time Date of Service 12/29/2020 Time of Evaluation 0940 Subjective Subjective: No Chest Pain, No shortness of breath, No Palpitations Vitals Vitals Vital Signs Date Time Temp Pulse Resp B/P (MAP) Pulse Ox O2 Delivery O2 Flow Rate FiO2 12/29/20 07:00 98.8 82 17 158/94 (115) 96 Nasal Cannula 2.0 98.8 Weight Weight [ ] Input and Output Intake and Output Intake and Output 12/29/20 07:00 Output Total 175 ml Balance -175 ml Output Urine Total 175 ml # Voids 3 # Bowel Movements 2 Physical Exam HEENT: Neck Supple W Full Motion Chest: Symmetric LUNGS: Other (diminished bases) Heart: S1S2, RRR (SR) Abdomen: Soft N/T Extremities: No Edema, No Calf Tenderness Neurology: alert, oriented, follow commands Assessment Assessment 1. Acute respiratory failure secondary to CHF 2. Acute probable diastolic CHF 3. TONA on CKD, now ESRD. 4. Hypertension; controlled 5. Mild troponin elevation; peak 0.22. Most probably type II, demand ischemia in setting of above. 6. DLP Recommendations Secondary prevention measures. ASA, statin Continue current BP regimen Fluid offloading via HD TTE today Reported he has had stress test at the [place] 10/2020. Follow up with [facility] cardiology Discussed with pt. Supportive care Justicifation of Admission Dx: Justifications for Admission: Justification of Admission Dx: Yes BALBRI HUDSON MD 12/29/204: CARDIO Progress Notes Assessment Assessment Patient seen and examined. Agree with CHEMICAL PLANT OPERATOR SUPERVISOR's assessment and plan 2D echo showed severe LV dysfunction Acute on chr systolic HF better compensated with fluid removal with HD - nephrology following Plan ischemic evaluation possibly with cath as an outpatient VERONIKA GALDAMEZ APRN Dec 29, 2020 09:48 BALBIR HUDSON MD Dec 29, 2020 21:34
--- NOTE | 2020-12-29 09:52 | RAD ---
Procedure: Temporary hemodialysis catheter placement under fluoroscopy Clinical Indication: Adult male requiring hemodialysis Sedation: Local anesthesia only Antibiotics: None Fluoro Time: Less than 1 minute, images: 1 Contrast: None Sterility: All elements of maximal sterile barrier technique including the use of a cap, mask, sterile gown, sterile gloves, large sterile sheet, appropriate hand hygiene, and 2% chlorhexidine for cutaneous antisepsis (or acceptable alternative antiseptic per current guidelines) were followed for this procedure. Consent: The procedure was explained in its entirety to the patient or the patients designated roofing sales representative by a member of the treatment team, including a discussion of the risks, benefits and commonly accepted alternatives to the procedure, as well as the expected consequences of no therapy whatsoever. Discussion of the risks included, but was not limited to, those that are most frequent and those that are rare but possibly severe or life-threatening, as well as the possibility of unforeseen complications. Technique and Findings: Following informed consent, the patient was prepped and draped in the usual sterile fashion. Ultrasound interrogation of the right neck revealed patency and compressibility of the right internal jugular vein. A 21-gauge micropuncture needle was used to gain access to this vein after 1% Lidocaine was used to achieve local anesthesia. A hardcopy ultrasound image was recorded. The needle was exchanged over a wire for serial dilators followed by a 15 cm Schon temporary hemodialysis catheter which was deployed under fluoroscopic guidance such that the distal tip resided in the mid right atrium. The catheter flow rates were assessed manually and found to be excellent. The catheter was then flushed, packed with Heparin, capped, and sutured to the skin. Complications: No immediate Impression: 1. Ultrasound and fluoroscopic guided placement of a temporary hemodialysis catheter which exhibits excellent manual flow rates as described.
--- NOTE | 2020-12-29 10:34 | NUR ---
SW following. Discussed with RN, pt had temp dialysis cath placed yesterday, starting dialysis today. 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 SW will continue to follow.
[2020-12-29 11:00] VITALS: BP 151/87
--- NOTE | 2020-12-29 11:17 | PDOC ---
[employer] PROGRESS NOTE Date of Service DOS: DATE: 12/29/20 TIME: 11:16 Chief Complaint Chief Complaint A/P: Acute renal failure - on CKD, likely is ESRD. Nephrology consulted, urgent HD catheter placement consented bedside Shortness of breath - likely acute chf due to fluid overload from renal failure Anemia - likely due to chronic renal disease Hypertensive urgency - prn hydralazine Acute probable diastolic CHF Mild troponin elevation; peak 0.22. Most probably type II, demand ischemia due to renal failure FEN - Renal PPX - heparin FULL CODE Dispo - inpatient History of Present Illness History of Present Illness Mr Diego is a 65 year old male with history of hypertension who presents with shortness of breath for the past few days. Patient states that he was seen with his primary care provider at the [place] and was provided with an albuterol inhaler at the onset of his symptoms. He states his symptoms have not improved. He reports associated weakness, decreased fluid and water intake, and orthopnea. Patient has been vaccinated against COVID-19 with both doses of Moderna vaccine in late June/early July. He denies having been tested for Covid at the [place]. Patient denies fever, chills, headache, vision changes, chest pain, palpitations, cough. He does note some memory problems and confusion WBC 4.8, Hb 9.8, platelets 393, NA 143, K4.5, BUN 70, CR 7, glucose 100, trop 0.196->0.217->0.222->0.190, NT proBNP 35,000. Rapid influenza negative rapid COVID-19 negative EKG sinus rate of 84 bpm, underlying paced rhythm noted left axis deviation QTC 514. No ST segment elevations T WI V3 V4 V5 V6 and lead I. Chest radiograph with right basilar haziness. Admitted for further care. IR placed temporary HD catheter. Cardiology and nephrology consulted. 12/28: Tolerated dialysis well yesterday. BUN 41, CR 4.9. Breathing improved. He is skeptical about tunneled dialysis catheter placement as he thought his plan outpatient was to have PD catheter placement. Counseled that a tunneled dialysis catheter can eventually be removed and transition to PD catheter. All questions answered. Vitals/I&O Vitals/I&O: Vital Signs Date Time Temp Pulse Resp B/P (MAP) Pulse Ox O2 Delivery O2 Flow Rate FiO2 12/29/20 08:09 Nasal Cannula 2.0 12/29/20 07:00 98.8 82 17 158/94 (115) 96 98.8 I & O 12/28/20 12/28/20 12/29/20 15:00 23:00 07:00 Output Total 175 ml Balance -175 ml Physical Exam General: Alert, Oriented X3, Cooperative, No acute distress Heart: Regular rate Abdomen: Soft, No tenderness Extremities: No edema Skin: No significant lesion Assessment and Plan Assessmemt and Plan Problems Medical Problems: (1) Elevated brain natriuretic peptide (BNP) level Status: Acute (2) ESRD (end stage renal disease) Status: Acute Comment Review of Relevant I have reviewed the following items lainey (where applicable) has been applied. Justifications for Admission Other Justification BRITTNEY SALAS MD Dec 29, 2020 11:17
[2020-12-29 11:54] LABS: PROTHROMBIN TIME PATIENT 14.2 SEC (11.7-14.0)
[2020-12-29 12:07] LABS: CALCIUM 8.4 mg/dL (8.5-10.1); CREATININE 4.9 mg/dL (0.7-1.3); GFR 14.5; POTASSIUM 3.9 mmol/L (3.5-5.1)
--- NOTE | 2020-12-29 14:23 | CARD ---
MR#: [id number] Date of Study: 12/29/2020 Ordering Physician: NIMCO MILAN, Referring Physician: NIMCO MILAN, Tech: Marti Tsai [facility] APPROVED REPORT EXAM: Two-dimensional and M-mode echocardiogram with Doppler and color Doppler. Other Information Quality : GoodHR: 83bpm Rhythm : NSR INDICATION Dyspnea RISK FACTORS Hypertension 2D DIMENSIONS RVDd3.3 (2.9-3.5cm)Left Atrium(2D)3.6 (1.6-4.0cm) IVSd1.2 (0.7-1.1cm)Aortic Root(2D)3.9 (2.0-3.7cm) LVDd5.8 (3.9-5.9cm)LVOT Diameter2.5 (1.8-2.4cm) PWd1.5 (0.7-1.1cm)LVDs5.1 (2.5-4.0cm) FS (%) 11.8 %SV42.3 ml LVEF(%)25.1 (>50%) Aortic Valve AoV Peak Olegario.154.9cm/sAoV VTI26.1cm AO Peak GR.9.6mmHgLVOT Peak Olegario.97.1cm/s AO Mean GR.5mmHgAVA (VMAX)3.10cm2 AI P 1/2 [id number] Mitral Valve MV E Ogqootwh01.1cm/sMV DECEL [id number] MV A Nahezymh37.4cm/sE/A Ratio0.8 Pulmonary Valve PV Peak Clzymats57.6cm/s Tricuspid Valve TR P. Ljuazkdd832jq/sTR Peak Gr.42mmHg LEFT VENTRICLE The Left Ventricle is mildly dilated. There is mild concentric left ventricular hypertrophy. The ejec tion fraction is severely impaired. Estimated ejection fraction 15-20%. There is diffuse global hypok inesis. Tissue Doppler imaging reveals moderate left ventricular diastolic dysfunction. No left ventr icle thrombus noted on this study. RIGHT VENTRICLE The right ventricle is normal size. There is normal right ventricular wall thickness. The right ventr icular systolic function is normal. ATRIA The left atrium is severely dilated. The right atrium size is normal. The interatrial septum is intac t with no evidence for an atrial septal defect or patent foramen ovale as noted on 2-D or Doppler parveen ging. AORTIC VALVE The aortic valve is normal in structure and function. Doppler and Color Flow revealed moderate aortic regurgitation. There is no significant aortic valvular stenosis. MITRAL VALVE The mitral valve is normal in structure and function. There is no evidence of mitral valve prolapse. There is no mitral valve stenosis. Doppler and Color-flow revealed moderate mitral regurgitation. TRICUSPID VALVE The tricuspid valve is normal in structure and function. Doppler and Color Flow revealed mild tricusp id regurgitation. Estimated PAP 47 mmHg. There is no tricuspid valve stenosis. PULMONIC VALVE The pulmonary valve is normal in structure and function. Doppler and Color Flow revealed mild to mode rate pulmonic valvular regurgitation. There is no pulmonic valvular stenosis. GREAT VESSELS The aortic root is mildly enlarged. The ascending aorta is normal in size. The IVC is normal in size and collapses >50% with inspiration. PERICARDIAL EFFUSION There is a small to moderate pericardial effusion. There is trivial diastolic compression of the righ t atrium but overall no clear evidence of tamponade physiology (No resp variation of inflows, collaps ible IVC, lack of tachycardia) Critical Notification Critical Value: No <Conclusion> The ejection fraction is severely impaired. Estimated ejection fraction 15-20%. There is mild concentric left ventricular hypertrophy. There is diffuse global hypokinesis. Doppler and Color Flow revealed moderate aortic regurgitation. Doppler and Color-flow revealed moderate mitral regurgitation. Doppler and Color Flow revealed mild tricuspid regurgitation. Estimated PAP 47 mmHg. The IVC is normal in size and collapses >50% with inspiration. There is a small to moderate pericardial effusion. There is trivial diastolic compression of the righ t atrium but overall no clear evidence of tamponade physiology (No resp variation of inflows, collaps ible IVC, lack of tachycardia) Signed by : Hardik Saeed, Electronically Approved : 12/29/2020 14:23:27
[2020-12-29] MEDS: traMADol 50 MG TABLET PO PRN (17:32)
[2020-12-29] MEDS: FLUoxetine HCL 20 MG CAPSULE PO SCH (17:32)
[2020-12-29] MEDS: ASPIRIN ENTERIC COATED 81 MG TABLET.DR. PO SCH (17:32)
[2020-12-29] MEDS: hydrALAZINE 25 MG TABLET PO SCH ×2 (17:32→22:04)
[2020-12-29] MEDS: LISINOPRIL 10 MG TABLET PO SCH (17:33)
[2020-12-29 19:00] VITALS: BP 153/83
[2020-12-29] MEDS ORDERED: ATORVASTATIN CALCIUM 10 MG TABLET. PO SCH (21:00)
[2020-12-29 23:00] VITALS: BP 140/84
[2020-12-30] VITALS (7 sets, daily range): BP systolic 120–183; BP diastolic 59–95
[2020-12-30 06:54] LABS: ALBUMIN 2.6 g/dL (3.4-5.0); CALCIUM 8.4 mg/dL (8.5-10.1); CREATININE 3.5 mg/dL (0.7-1.3); GFR 21.4; PHOSPHORUS 3.1 mg/dL (2.6-4.7)
--- NOTE | 2020-12-30 08:17 | PDOC ---
[employer] PROGRESS NOTE Date of Service DOS: DATE: 12/30/20 TIME: 08:15 Chief Complaint Chief Complaint A/P: Acute renal failure - on CKD, likely is ESRD. Nephrology consulted, urgent HD catheter placement consented bedside Shortness of breath - likely acute chf due to fluid overload from renal failure Anemia - likely due to chronic renal disease Hypertensive urgency - prn hydralazine Acute systolic and diastolic CHF - The ejection fraction is severely impaired. Estimated ejection fraction 15-20%. There is mild concentric left ventricular hypertrophy. Mild troponin elevation; peak 0.22. Most probably type II, demand ischemia due to renal failure FEN - Renal PPX - heparin FULL CODE Dispo - inpatient History of Present Illness History of Present Illness Mr Diego is a 65 year old male with history of hypertension who presents with shortness of breath for the past few days. Patient states that he was seen with his primary care provider at the [place] and was provided with an albuterol inhaler at the onset of his symptoms. He states his symptoms have not improved. He reports associated weakness, decreased fluid and water intake, and orthopnea. Patient has been vaccinated against COVID-19 with both doses of Moderna vaccine in late June/early July. He denies having been tested for Covid at the [place]. Patient denies fever, chills, headache, vision changes, chest pain, palpitations, cough. He does note some memory problems and confusion WBC 4.8, Hb 9.8, platelets 393, NA 143, K4.5, BUN 70, CR 7, glucose 100, trop 0.196->0.217->0.222->0.190, NT proBNP 35,000. Rapid influenza negative rapid COVID-19 negative EKG sinus rate of 84 bpm, underlying paced rhythm noted left axis deviation QTC 514. No ST segment elevations T WI V3 V4 V5 V6 and lead I. Chest radiograph with right basilar haziness. Admitted for further care. IR placed temporary HD catheter. Cardiology and nephrology consulted. 12/29: Tolerated dialysis well yesterday. BUN 41, CR 4.9. Breathing improved. He is skeptical about tunneled dialysis catheter placement as he thought his plan outpatient was to have PD catheter placement. Counseled that a tunneled dialysis catheter can eventually be removed and transition to PD catheter. All questions answered. Echo with EF 15% 12/30: LDL cholesterol 118, TSH 1.8, albumin 2.6, CR 3.5 and BUN down to 21. Afebrile. N.p.o. for tunneled dialysis catheter placement today. Vitals/I&O Vitals/I&O: Vital Signs Date Time Temp Pulse Resp B/P (MAP) Pulse Ox O2 Delivery O2 Flow Rate FiO2 12/30/20 07:00 97.2 75 18 156/95 (115) 94 97.2 12/29/20 20:00 Room Air 12/29/20 18:08 2.0 l I & O 12/29/20 12/29/20 12/30/20 15:00 23:00 07:00 Intake Total 0 ml Output Total 1 ml Balance -1 ml 0 ml Physical Exam General: Alert, Oriented X3, Cooperative, No acute distress Heart: Regular rate Abdomen: Soft, No tenderness Extremities: No edema Skin: No significant lesion Labs Labs: Laboratory Tests Test 12/29/20 11:28 12/30/20 05:50 Prothrombin Time 14.2 SEC (11.7-14.0) Prothromb Time International Ratio 1.1 (0.8-1.1) Sodium Level 141 mmol/L (136-145) 138 mmol/L (136-145) Potassium Level 3.9 mmol/L (3.5-5.1) 4.0 mmol/L (3.5-5.1) Chloride Level 105 mmol/L (98-107) 100 mmol/L (98-107) Carbon Dioxide Level 26 mmol/L (21-32) 29 mmol/L (21-32) Anion Gap 10 (6-14) 9 (6-14) Blood Urea Nitrogen 41 mg/dL (8-26) 21 mg/dL (8-26) Creatinine 4.9 mg/dL (0.7-1.3) 3.5 mg/dL (0.7-1.3) Estimated GFR (Cockcroft-Gault) 14.5 21.4 Glucose Level 108 mg/dL (70-99) 78 mg/dL (70-99) Calcium Level 8.4 mg/dL (8.5-10.1) 8.4 mg/dL (8.5-10.1) Phosphorus Level 3.1 mg/dL (2.6-4.7) Albumin 2.6 g/dL (3.4-5.0) Assessment and Plan Assessmemt and Plan Problems Medical Problems: (1) Elevated brain natriuretic peptide (BNP) level Status: Acute (2) ESRD (end stage renal disease) Status: Acute Comment Review of Relevant I have reviewed the following items lainey (where applicable) has been applied. Medications: Current Medications Medications (Trade) Dose Ordered Sig/Fabio Route PRN Reason Start Time Stop Time Status Last Admin Dose Admin Lisinopril (Prinivil) 10 mg DAILY PO 12/29/20 09:00 12/29/20 17:33 Atorvastatin Calcium (Lipitor) 10 mg QHS PO 12/29/20 21:00 12/29/20 22:04 Images: Echo 12/28/2020: The ejection fraction is severely impaired. Estimated ejection fraction 15-20%. There is mild concentric left ventricular hypertrophy. There is diffuse global hypokinesis. Doppler and Color Flow revealed moderate aortic regurgitation. Doppler and Color-flow revealed moderate mitral regurgitation. Doppler and Color Flow revealed mild tricuspid regurgitation. Estimated PAP 47 mmHg. The IVC is normal in size and collapses >50% with inspiration. There is a small to moderate pericardial effusion. There is trivial diastolic compression of the right atrium but overall no clear evidence of tamponade physiology (No resp variation of inflows, collapsible IVC, lack of tachycardia) Justifications for Admission Other Justification BRITTNEY SALAS MD Dec 30, 2020 08:17
[2020-12-30] MEDS ORDERED: LIDOCAINE 1%/EPI 1:100,000 20 ML VIAL. ONE (09:02)
[2020-12-30] MEDS ORDERED: fentaNYL PF VIAL 100 MCG/2 ML VIAL ONE (09:08)
[2020-12-30] MEDS ORDERED: ceFAZolin SODIUM IV Push 1 GM VIAL. IVP ONE ×2 (09:08→09:30)
[2020-12-30] MEDS ORDERED: MIDAZOLAM HCL/PF 2 MG/2 ML VIAL. ONE (09:08)
[2020-12-30] MEDS ORDERED: fentaNYL PF VIAL 100 MCG/2 ML VIAL IV ONE (09:30)
[2020-12-30] MEDS ORDERED: MIDAZOLAM HCL/PF 2 MG/2 ML VIAL. IV ONE (09:30)
[2020-12-30] MEDS ORDERED: LIDOCAINE 1%/EPI 1:100,000 20 ML VIAL. SQ ONE (09:30)
--- NOTE | 2020-12-30 09:33 | PDOC ---
DATE OF SERVICE DATE: 12/30/20 TIME: 09:31 SUBJECTIVE ROS Denies SOb, No N/V No complaints on dialysis yesterday OBJECTIVE Vital Signs Vital Signs Date Time Temp Pulse Resp B/P (MAP) Pulse Ox O2 Delivery O2 Flow Rate FiO2 12/30/20 08:00 Room Air 2.0 12/30/20 07:00 97.2 75 18 156/95 (115) 94 97.2 I & 0 Intake and Output 12/30/20 07:00 Intake Total 0 ml Output Total 1 ml Balance -1 ml Intake Oral 0 ml Output Urine Total 1 ml # Voids 1 PHYSICAL EXAM Physical Exam General- , NAD HEN OM moist , Neck supple Lungs decreased at bases, Non labored CV S1S2 Abd soft, NT Ext No LE edema No reina Skin No rash DIAGNOSIS/ASSESSMENT Assessment & Plan new Onset ESRD - initiated HD on 12/28, tolerated well, with 2 Lt UF. 2nd treatment on 12/29 . Access Tunnelled HD Catheter placed today He is a . Currently No indication for dialysis today, TTS while inpatient Per patient report he is following with nephrology at [place] and plan was to get PD catheter placement soon at . Initiated on HD , he would like to switch to PD thru his nephologist at [place]. Per social services coordinator Ac Resp failure - CXr Patchy right basilar airspace disease may be infectious or inflammatory in etiology.BNP elevated Anemia- baseline unknown HTN - accelerated HTN , Home antihypertensives , BP better COMMENT/RELEVANT DATA Meds Current Medications Medications (Trade) Dose Ordered Sig/Fabio Start Time Stop Time Status Last Admin Dose Admin Acetaminophen (Tylenol) 650 mg PRN Q6HRS PRN 12/28/20 07:30 Albumin Human 100 ml @ 100 mls/hr 1X PRN PRN 12/29/20 07:45 12/29/20 13:44 DC Albuterol Sulfate (Ventolin Hfa) 1 puff PRN Q4HRS PRN 12/28/20 03:30 12/28/20 09:07 1 PUFF Aspirin (Ecotrin) 81 mg DAILYWBKFT 12/29/20 08:00 12/29/20 17:32 81 MG Atorvastatin Calcium (Lipitor) 10 mg QHS 12/29/20 21:00 12/29/20 22:04 10 MG Carvedilol (Coreg) 3.125 mg BIDWMEALS 12/30/20 09:00 Cefazolin Sodium (Ancef) 1 gm STK-MED ONCE 12/30/20 09:08 12/30/20 09:08 DC Docusate Sodium (Colace) 100 mg PRN BID PRN 12/28/20 07:15 Fentanyl Citrate (Fentanyl 2ml Vial) 100 mcg STK-MED ONCE 12/30/20 09:08 12/30/20 09:08 DC Fluoxetine HCl (PROzac) 40 mg DAILYWBKFT 12/28/20 08:00 12/29/20 17:32 40 MG Gabapentin (Neurontin) 100 mg TID 12/28/20 09:00 12/29/20 22:04 100 MG Hydralazine HCl (Apresoline Inj) 10 mg PRN Q4HRS PRN 12/28/20 07:30 Hydralazine HCl (Apresoline) 25 mg BID 12/28/20 09:00 12/29/20 22:04 25 MG Info (PHARMACY MONITORING -- do not chart) 1 each PRN DAILY PRN 12/29/20 07:45 Labetalol HCl (Normodyne Iv Push) 10 mg 1X ONCE 12/27/20 21:30 12/27/20 21:31 DC 12/27/20 21:07 10 MG Lidocaine HCl (Buffered Lidocaine 1%) 6 ml 1X ONCE 12/28/20 11:15 12/28/20 11:16 DC 12/28/20 11:31 3 ML Lidocaine/ Epinephrine (LIDOCAINE 1%-EPI 1:100,000 Multi-Dose) 20 ml STK-MED ONCE 12/30/20 09:02 12/30/20 09:02 DC Lisinopril (Prinivil) 10 mg DAILY 12/29/20 09:00 12/29/20 17:33 10 MG Midazolam HCl (Versed) 2 mg STK-MED ONCE 12/30/20 09:08 12/30/20 09:08 DC Ondansetron HCl (Zofran) 4 mg PRN Q4HRS PRN 12/28/20 07:30 Sodium Chloride 1,000 ml @ 400 mls/hr Q2H30M PRN 12/29/20 07:45 12/29/20 19:44 DC Tramadol HCl (Ultram) 50 mg PRN Q6HRS PRN 12/28/20 07:30 12/29/20 17:32 50 MG Lab Laboratory Tests Test 12/29/20 11:28 12/30/20 05:50 Prothrombin Time 14.2 SEC (11.7-14.0) Prothromb Time International Ratio 1.1 (0.8-1.1) Sodium Level 141 mmol/L (136-145) 138 mmol/L (136-145) Potassium Level 3.9 mmol/L (3.5-5.1) 4.0 mmol/L (3.5-5.1) Chloride Level 105 mmol/L (98-107) 100 mmol/L (98-107) Carbon Dioxide Level 26 mmol/L (21-32) 29 mmol/L (21-32) Anion Gap 10 (6-14) 9 (6-14) Blood Urea Nitrogen 41 mg/dL (8-26) 21 mg/dL (8-26) Creatinine 4.9 mg/dL (0.7-1.3) 3.5 mg/dL (0.7-1.3) Estimated GFR (Cockcroft-Gault) 14.5 21.4 Glucose Level 108 mg/dL (70-99) 78 mg/dL (70-99) Calcium Level 8.4 mg/dL (8.5-10.1) 8.4 mg/dL (8.5-10.1) Phosphorus Level 3.1 mg/dL (2.6-4.7) Albumin 2.6 g/dL (3.4-5.0) Results All relevant outside records, renal labs, imaging studies, telemetry/EKG's were reviewed. Justicifation of Admission Dx: Justifications for Admission: Justification of Admission Dx: N/A TREVIN KANG MD Dec 30, 2020 09:32
--- NOTE | 2020-12-30 09:41 | PDOC ---
MODERATE SEDATION ASSESSMENT RISKS/ALTERNATIVES Risks/Alternatives Risks and alternatives of this type of sedation and procedure discussed with: RISK/ALTERNATIVES: Patient H & P ON CHART H & P H & P on chart and reviewed for co-morbid conditions and appropriate labs. H&P ON CHART: Yes STATUS PREG STATUS ASSESSED: Yes MEDS/ALLERGIES REVIEWED Meds/Allergies Reviewed Medications and Allergies including time and route of recently administered narcotics and sedatives. MEDS/ALLERGIES REVIEWED: Yes ASA RATING ASA RATING: II AIRWAY ASSESSMENT Airway Assessment Airway patency, oral function limitations, presence of caps, crowns, dentures, partials, and ability to extend neck assessed. AIRWAY ASSESSMENT: Yes MALLAMPATI SCORE MALLAMPATI SCORE: II PRE-SEDATION ASSESSMENT PRE-SEDATION ASSESSMENT: Yes INGA PARK MD Dec 30, 2020 09:41
--- NOTE | 2020-12-30 09:42 | PDOC ---
BRIEF OPERATIVE NOTE Pre-Op Diagnosis CRF Post-Op Diagnosis same Procedure Performed Conversion of Temp HD catheter to Tunnelled HD Catheter Surgeon Scar EBL minimal Anesthesia Type: Conscious Sedation Specimens Obtained none Findings Tunnelled HD catheter suitable for use. INGA PARK MD Dec 30, 2020 09:42
--- NOTE | 2020-12-30 10:05 | NUR ---
Pt back from IR. HD catheter site assessed with RADHA Pedroza . Dressing C/D/I. Post Sedation vital signs started. HOB at 45 degrees. Pt resting comfortably at this time. Meal tray ordered. Will continue to monitor.
--- NOTE | 2020-12-30 12:14 | PDOC ---
NIMCO MILAN LEA 12/30/20 1214: CARDIO Progress Notes Date and Time Date of Service 12/30/20 Time of Evaluation 1210 Subjective Subjective: No Chest Pain, No shortness of breath, No Palpitations, Other (feels tired today) Vitals Vitals Vital Signs Date Time Temp Pulse Resp B/P (MAP) Pulse Ox O2 Delivery O2 Flow Rate FiO2 12/30/20 10:54 97.5 75 18 140/84 (102) 96 97.5 12/30/20 09:44 Nasal Cannula 2.0 Weight Weight [ ] Input and Output Intake and Output Intake and Output 12/30/20 07:00 Intake Total 0 ml Output Total 1 ml Balance -1 ml Intake Oral 0 ml Output Urine Total 1 ml # Voids 1 Laboratory Labs Laboratory Tests Test 12/30/20 05:50 Sodium Level 138 mmol/L (136-145) Potassium Level 4.0 mmol/L (3.5-5.1) Chloride Level 100 mmol/L (98-107) Carbon Dioxide Level 29 mmol/L (21-32) Anion Gap 9 (6-14) Blood Urea Nitrogen 21 mg/dL (8-26) Creatinine 3.5 mg/dL (0.7-1.3) Estimated GFR (Cockcroft-Gault) 21.4 Glucose Level 78 mg/dL (70-99) Calcium Level 8.4 mg/dL (8.5-10.1) Phosphorus Level 3.1 mg/dL (2.6-4.7) Albumin 2.6 g/dL (3.4-5.0) Physical Exam HEENT: Neck Supple W Full Motion Chest: Symmetric LUNGS: Other (diminished bases) Heart: S1S2, RRR (SR) Abdomen: Soft N/T Extremities: No Edema, No Calf Tenderness Neurology: alert, oriented, follow commands Assessment Assessment 1. Acute respiratory failure secondary to CHF 2. Acute on chronic systolic CHF, cardiomyopathy; echo showed severe LV dysfunction with an EF of 15% 3. TONA on CKD, now ESRD. 4. Hypertension; controlled 5. Mild troponin elevation; peak 0.22. Most probably type II, demand ischemia in setting of above. 6. DLP Recommendations Secondary prevention measures. ASA, statin HF optimization with Coreg, losartan. Consider addition of Entesto on an outpatient basis Fluid offloading via HD Will need further ischemic evaluation with probable LHC on an outpatient basis Supportive care Recheck in 3 months for optimization of medical therapy to assess need for AICD Follow up in our office with Dr. Mclain has been arranged Justicifation of Admission Dx: Justifications for Admission: Justification of Admission Dx: N/A BALBIR MCLAIN MD 12/31/20 1251: CARDIO Progress Notes Assessment Assessment Patient seen and examined 12/30/20. Agree with PATTERN SHOP SUPERVISOR's assessment and plan 2D echo showed severe LV dysfunction Acute on chr systolic HF better compensated with fluid removal with HD - nephrology following Plan ischemic evaluation possibly with cath as an outpatient Follow-up as scheduled NIMCO MILAN APRN Dec 30, 2020 12:14 BALBIR MCLAIN MD Dec 31, 2020 12:51
[2020-12-30] MEDS: ASPIRIN ENTERIC COATED 81 MG TABLET.DR. PO SCH (12:22)
[2020-12-30] MEDS: LISINOPRIL 10 MG TABLET PO SCH (12:22)
[2020-12-30] MEDS: FLUoxetine HCL 20 MG CAPSULE PO SCH (12:23)
[2020-12-30] MEDS: GABAPENTIN 100 MG CAPSULE. PO SCH ×3 (12:23→20:41)
[2020-12-30] MEDS: CARVEDILOL 3.125 MG TABLET. PO SCH ×2 (12:23→17:06)
[2020-12-30] MEDS: hydrALAZINE 25 MG TABLET PO SCH ×2 (12:23→20:41)
--- NOTE | 2020-12-30 12:49 | NUR ---
SW following. Discussed with RN, pt had permanent dialysis catheter placed today. SW left voicemail for [facility]'s team ([facility] with the [facility] to determine steps in arranging chair time. SW will continue to follow.
--- NOTE | 2020-12-30 14:16 | RAD ---
Procedure: Temporary to tunneled hemodialysis catheter exchange Clinical Indication: Chronic renal failure Sedation: Conscious sedation using a combination of Versed and fentanyl was provided for 21 minutes, including continuous monitoring of the patients heart rate, rhythm, blood pressure, oxygen saturation and level of arousability by a trained independent observer. Antibiotics: Antibiotic was administered intravenously within 1 hour of the procedure start time. Exposure: Kerma-Area Product: mGycm2 Fluoro Time: 0.2 minutes # of Images: 1 Contrast: None Sterility: All elements of maximal sterile barrier technique including the use of a cap, mask, steril e gown, sterile gloves, large sterile sheet, appropriate hand hygiene, and 2% chlorhexidine for cutan eous antisepsis (or acceptable alternative antiseptic per current guidelines) were followed for this procedure. Consent: The procedure was explained in its entirety to the patient or the patients designated repres entative by a member of the treatment team, including a discussion of the risks, benefits and commonl y accepted alternatives to the procedure, as well as the expected consequences of not performing the procedure. Discussion of the risks included, but was not limited to, those that are most frequent an d those that are rare but possibly severe or life-threatening, as well as the possibility of unforese en complications. Technique and Findings: Following informed consent, the patient was prepped and draped in usual steri le fashion. Preliminary fluoroscopy scopic spot view revealed an intact temporal hemodialysis cathete r. 1 percent lidocaine was used to achieve local anesthesia over the right anterior chest wall. A sma ll dermatotomy was made. A 23 cm palindrome tunneled hemodialysis catheter was then tunneled subcutan eously towards the right neck dermatotomy. The existing temporary hemodialysis catheter was removed o yael wire and a large caliber peel-away sheath was placed and used to deploy the new catheter under fl uoroscopic guidance such that the distal tip resided in the mid right atrium. Manual flow rates were assessed and found to be excellent. The catheter was flushed, capped, and sutured to the skin. Dermab ond was used to close the right neck dermatotomy. Complications: No immediate Impression: 1. Fluoroscopic guided exchange of a temporary for tunneled hemodialysis catheter as described. Electronically signed by: Med Abbott MD (12/30/2020 2:14 PM) [id number]
[2020-12-30] MEDS: ATORVASTATIN CALCIUM 40 MG TABLET. PO SCH (20:41)
[2020-12-30] MEDS ORDERED: traZODone 50 MG TABLET. PO PRN (21:30)
[2020-12-30] MEDS: ZOLPIDEM 5 MG TABLET. PO PRN (22:30)
[2020-12-31 07:00] VITALS: BP 157/93
[2020-12-31 07:32] LABS: CALCIUM 8.9 mg/dL (8.5-10.1); CREATININE 4.5 mg/dL (0.7-1.3); POTASSIUM 3.9 mmol/L (3.5-5.1)
--- NOTE | 2020-12-31 08:29 | PDOC ---
[employer] PROGRESS NOTE Date of Service DOS: DATE: 12/31/20 TIME: 08:28 Chief Complaint Chief Complaint A/P: Acute renal failure - on CKD, likely is ESRD. Nephrology consulted, urgent HD catheter placement consented bedside Shortness of breath - likely acute chf due to fluid overload from renal failure Anemia - likely due to chronic renal disease Hypertensive urgency - prn hydralazine Acute systolic and diastolic CHF - The ejection fraction is severely impaired. Estimated ejection fraction 15-20%. There is mild concentric left ventricular hypertrophy. Mild troponin elevation; peak 0.22. Most probably type II, demand ischemia due to renal failure FEN - Renal PPX - heparin FULL CODE Dispo - inpatient History of Present Illness History of Present Illness Mr Diego is a 65 year old male with history of hypertension who presents with shortness of breath for the past few days. Patient states that he was seen with his primary care provider at the [place] and was provided with an albuterol inhaler at the onset of his symptoms. He states his symptoms have not improved. He reports associated weakness, decreased fluid and water intake, and orthopnea. Patient has been vaccinated against COVID-19 with both doses of Moderna vaccine in late June/early July. He denies having been tested for Covid at the [place]. Patient denies fever, chills, headache, vision changes, chest pain, palpitations, cough. He does note some memory problems and confusion WBC 4.8, Hb 9.8, platelets 393, NA 143, K4.5, BUN 70, CR 7, glucose 100, trop 0.196->0.217->0.222->0.190, NT proBNP 35,000. Rapid influenza negative rapid COVID-19 negative EKG sinus rate of 84 bpm, underlying paced rhythm noted left axis deviation QTC 514. No ST segment elevations T WI V3 V4 V5 V6 and lead I. Chest radiograph with right basilar haziness. Admitted for further care. IR placed temporary HD catheter. Cardiology and nephrology consulted. 12/29: Tolerated dialysis well yesterday. BUN 41, CR 4.9. Breathing improved. He is skeptical about tunneled dialysis catheter placement as he thought his plan outpatient was to have PD catheter placement. Counseled that a tunneled dialysis catheter can eventually be removed and transition to PD catheter. All questions answered. Echo with EF 15% 12/30: LDL cholesterol 118, TSH 1.8, albumin 2.6, CR 3.5 and BUN down to 21. Afebrile. N.p.o. for tunneled dialysis catheter placement today. Afebrile overnight. Multiple questions about CHF and ESRD answered with son bedside. Still wants to go forward with peritoneal dialysis catheter Vitals/I&O Vitals/I&O: Vital Signs Date Time Temp Pulse Resp B/P (MAP) Pulse Ox O2 Delivery O2 Flow Rate FiO2 12/31/20 07:00 98.8 78 16 157/93 (114) 93 98.8 12/30/20 22:53 Room Air 12/30/20 09:44 2.0 Physical Exam General: Alert, Oriented X3, Cooperative, No acute distress Heart: Regular rate Abdomen: Soft, No tenderness Extremities: No edema Skin: No significant lesion Labs Labs: Laboratory Tests Test 12/31/20 06:40 Sodium Level 138 mmol/L (136-145) Potassium Level 3.9 mmol/L (3.5-5.1) Chloride Level 100 mmol/L (98-107) Carbon Dioxide Level 27 mmol/L (21-32) Anion Gap 11 (6-14) Blood Urea Nitrogen 35 mg/dL (8-26) Creatinine 4.5 mg/dL (0.7-1.3) Estimated GFR (Cockcroft-Gault) 16.0 Glucose Level 82 mg/dL (70-99) Calcium Level 8.9 mg/dL (8.5-10.1) Assessment and Plan Assessmemt and Plan Problems Medical Problems: (1) Elevated brain natriuretic peptide (BNP) level Status: Acute (2) ESRD (end stage renal disease) Status: Acute Comment Review of Relevant I have reviewed the following items lainey (where applicable) has been applied. Medications: Current Medications Medications (Trade) Dose Ordered Sig/Fabio Route PRN Reason Start Time Stop Time Status Last Admin Dose Admin Carvedilol (Coreg) 3.125 mg BIDWMEALS PO 12/30/20 09:00 12/30/20 17:06 Midazolam HCl (Versed) 2 mg 1X ONCE IV 12/30/20 09:30 12/30/20 09:35 DC 12/30/20 09:24 Fentanyl Citrate (Fentanyl 2ml Vial) 100 mcg 1X ONCE IV 12/30/20 09:30 9/15/21 09:35 DC 12/30/20 09:24 Lidocaine/ Epinephrine (LIDOCAINE 1%-EPI 1:100,000 Multi-Dose) 20 ml 1X ONCE SQ 12/30/20 09:30 12/30/20 09:35 DC 12/30/20 09:28 Cefazolin Sodium (Ancef) 1 gm 1X ONCE IVP 12/30/20 09:30 12/30/20 09:35 DC 12/30/20 09:24 Atorvastatin Calcium (Lipitor) 40 mg QHS PO 12/30/20 21:00 12/30/20 20:41 Zolpidem Tartrate (Ambien) 5 mg PRN QHS PRN PO INSOMNIA 12/30/20 21:30 12/30/20 22:30 Justifications for Admission Other Justification BRITTNEY SALAS MD Dec 31, 2020 08:29
[2020-12-31] MEDS ORDERED: DIALYSIS PATIENT. MC PRN (09:15)
--- NOTE | 2020-12-31 09:53 | PDOC ---
DATE OF SERVICE DATE: 12/31/20 TIME: 09:51 SUBJECTIVE ROS Denies SOb, No N/V No complaints on dialysis , wants to go home OBJECTIVE Vital Signs Vital Signs Date Time Temp Pulse Resp B/P (MAP) Pulse Ox O2 Delivery O2 Flow Rate FiO2 12/31/20 07:00 98.8 78 16 157/93 (114) 93 98.8 12/30/20 22:53 Room Air 12/30/20 09:44 2.0 PHYSICAL EXAM Physical Exam General- , NAD HEN OM moist , Neck supple Lungs decreased at bases, Non labored CV S1S2 Abd soft, NT Ext No LE edema No reina Skin No rash DIAGNOSIS/ASSESSMENT Assessment & Plan new Onset ESRD - initiated HD on 12/28, tolerated well, with 2 Lt UF. 2nd treatment on 12/29 . Seen on dialysis today, tolerating well. Continue as ordered. Elliott Mukherjee Access Tunnelled HD Catheter placed today He is a . Per patient report he is following with nephrology at [place] and plan was to get PD catheter placement soon at . Initiated on HD , he would like to switch to PD If approved by [place] recommend consult GS at [facility] for PD catheter placement . OP chair time per SW Ac Resp failure - CXr Patchy right basilar airspace disease may be infectious or inflammatory in etiology.BNP elevated Anemia- baseline unknown HTN - accelerated HTN , Home antihypertensives , BP better COMMENT/RELEVANT DATA Meds Current Medications Medications (Trade) Dose Ordered Sig/Fabio Start Time Stop Time Status Last Admin Dose Admin Acetaminophen (Tylenol) 650 mg PRN Q6HRS PRN 12/28/20 07:30 Albumin Human 100 ml @ 100 mls/hr 1X PRN PRN 12/29/20 07:45 12/29/20 13:44 DC Albuterol Sulfate (Ventolin Hfa) 1 puff PRN Q4HRS PRN 12/28/20 03:30 12/28/20 09:07 1 PUFF Aspirin (Ecotrin) 81 mg DAILYWBKFT 12/29/20 08:00 12/30/20 12:22 81 MG Atorvastatin Calcium (Lipitor) 40 mg QHS 12/30/20 21:00 12/30/20 20:41 40 MG Carvedilol (Coreg) 3.125 mg BIDWMEALS 12/30/20 09:00 12/30/20 17:06 3.125 MG Cefazolin Sodium (Ancef) 1 gm 1X ONCE 12/30/20 09:30 12/30/20 09:35 DC 12/30/20 09:24 1 GM Docusate Sodium (Colace) 100 mg PRN BID PRN 12/28/20 07:15 Fentanyl Citrate (Fentanyl 2ml Vial) 100 mcg 1X ONCE 12/30/20 09:30 12/30/20 09:35 DC 12/30/20 09:24 50 MCG Fluoxetine HCl (PROzac) 40 mg DAILYWBKFT 12/28/20 08:00 12/30/20 12:23 40 MG Gabapentin (Neurontin) 100 mg TID 12/28/20 09:00 12/30/20 20:41 100 MG Hydralazine HCl (Apresoline Inj) 10 mg PRN Q4HRS PRN 12/28/20 07:30 Hydralazine HCl (Apresoline) 25 mg BID 12/28/20 09:00 12/30/20 20:41 25 MG Info (PHARMACY MONITORING -- do not chart) 1 each PRN DAILY PRN 12/31/20 09:15 UNV Labetalol HCl (Normodyne Iv Push) 10 mg 1X ONCE 12/27/20 21:30 12/27/20 21:31 DC 12/27/20 21:07 10 MG Lidocaine HCl (Buffered Lidocaine 1%) 6 ml 1X ONCE 12/28/20 11:15 12/28/20 11:16 DC 12/28/20 11:31 3 ML Lidocaine/ Epinephrine (LIDOCAINE 1%-EPI 1:100,000 Multi-Dose) 20 ml 1X ONCE 12/30/20 09:30 12/30/20 09:35 DC 12/30/20 09:28 10 ML Lisinopril (Prinivil) 10 mg DAILY 12/29/20 09:00 12/30/20 15:01 DC 12/30/20 12:22 10 MG Losartan Potassium (Cozaar) 50 mg DAILY 12/31/20 09:00 Midazolam HCl (Versed) 2 mg 1X ONCE 12/30/20 09:30 12/30/20 09:35 DC 12/30/20 09:24 1 MG Ondansetron HCl (Zofran) 4 mg PRN Q4HRS PRN 12/28/20 07:30 Sodium Chloride 1,000 ml @ 400 mls/hr Q2H30M PRN 12/29/20 07:45 12/29/20 19:44 DC Tramadol HCl (Ultram) 50 mg PRN Q6HRS PRN 12/28/20 07:30 12/29/20 17:32 50 MG Trazodone HCl (Desyrel) 50 mg PRN QHS PRN 12/30/20 21:30 Zolpidem Tartrate (Ambien) 5 mg PRN QHS PRN 12/30/20 21:30 12/30/20 22:30 5 MG Lab Laboratory Tests Test 12/31/20 06:40 Sodium Level 138 mmol/L (136-145) Potassium Level 3.9 mmol/L (3.5-5.1) Chloride Level 100 mmol/L (98-107) Carbon Dioxide Level 27 mmol/L (21-32) Anion Gap 11 (6-14) Blood Urea Nitrogen 35 mg/dL (8-26) Creatinine 4.5 mg/dL (0.7-1.3) Estimated GFR (Cockcroft-Gault) 16.0 Glucose Level 82 mg/dL (70-99) Calcium Level 8.9 mg/dL (8.5-10.1) Results All relevant outside records, renal labs, imaging studies, telemetry/EKG's were reviewed. Justicifation of Admission Dx: Justifications for Admission: Justification of Admission Dx: N/A TREVIN KANG MD Dec 31, 2020 09:53
--- NOTE | 2020-12-31 10:31 | PDOC ---
NIMCO MILAN [employer] DESIGN[employer] 12/31/20 1031: CARDIO Progress Notes Date and Time Date of Service 12/31/20 Time of Evaluation 1030 Subjective Subjective: No Chest Pain, No shortness of breath, No Palpitations, Other (seen on HD) Vitals Vitals Vital Signs Date Time Temp Pulse Resp B/P (MAP) Pulse Ox O2 Delivery O2 Flow Rate FiO2 12/31/20 07:00 98.8 78 16 157/93 (114) 93 98.8 12/30/20 22:53 Room Air 12/30/20 09:44 2.0 Weight Weight [ ] Laboratory Labs Laboratory Tests Test 12/31/20 06:40 Sodium Level 138 mmol/L (136-145) Potassium Level 3.9 mmol/L (3.5-5.1) Chloride Level 100 mmol/L (98-107) Carbon Dioxide Level 27 mmol/L (21-32) Anion Gap 11 (6-14) Blood Urea Nitrogen 35 mg/dL (8-26) Creatinine 4.5 mg/dL (0.7-1.3) Estimated GFR (Cockcroft-Gault) 16.0 Glucose Level 82 mg/dL (70-99) Calcium Level 8.9 mg/dL (8.5-10.1) Physical Exam HEENT: Neck Supple W Full Motion Chest: Symmetric LUNGS: Other (diminished bases) Heart: RRR (SR) Abdomen: Soft N/T Extremities: No Edema, No Calf Tenderness Neurology: alert, oriented, follow commands Assessment Assessment 1. Acute respiratory failure secondary to CHF 2. Acute on chronic systolic CHF, cardiomyopathy; echo showed severe LV d ysfunction with an EF of 15%. appears compensated 3. TONA on CKD, now ESRD. 4. Hypertension; controlled 5. Mild troponin elevation; peak 0.22. Most probably type II, demand ischemia in setting of above. CP free 6. DLP Recommendations Secondary prevention measures. ASA, statin HF optimization with Coreg, losartan. Consider addition of Entesto on an outpatient basis Fluid offloading via HD Will need further ischemic evaluation with probable LHC on an outpatient basis Supportive care Follow up in our office with Dr. Mclain as arranged Recheck in 3 months for optimization of medical therapy to assess need for AICD Justicifation of Admission Dx: Justifications for Admission: Justification of Admission Dx: N/A BALBIR MCLAIN MD 12/31/20 1707: CARDIO Progress Notes Assessment Assessment Patient seen and examined. Agree with BONE CHAR PULLER's assessment and plan 2D echo showed severe LV dysfunction Acute on chr systolic HF better compensated with fluid removal with HD - nephrology following Plan ischemic evaluation possibly with cath as an outpatient Follow-up as scheduled NIMCO MILAN APRN Dec 31, 2020 10:31 BALBIR MCLAIN MD Dec 31, 2020 17:07
[2020-12-31 11:00] VITALS: BP 131/77
[2020-12-31] MEDS: FLUoxetine HCL 20 MG CAPSULE PO SCH (12:34)
[2020-12-31] MEDS: ASPIRIN ENTERIC COATED 81 MG TABLET.DR. PO SCH (12:34)
[2020-12-31] MEDS: GABAPENTIN 100 MG CAPSULE. PO SCH ×3 (12:34→20:36)
[2020-12-31] MEDS: LOSARTAN POTASSIUM 50 MG TABLET. PO SCH (12:34)
[2020-12-31] MEDS: CARVEDILOL 3.125 MG TABLET. PO SCH ×2 (12:34→17:22)
[2020-12-31] MEDS: hydrALAZINE 25 MG TABLET PO SCH ×2 (12:35→20:38)
--- NOTE | 2020-12-31 13:33 | NUR ---
SW following. Discussed with RN, GREGG spoke with pt's social insurance specialist, Shyann Urena at the [place] regarding PD set up. Shyann advised there is a lithographic general worker, and provided her with GREGG's phone number. SW awaiting a call from [facility] [place] lithographic general worker. Addendum: 12/31/20 at [address] Waldron requesting pt be set up with a life vest. GREGG faxed [facility] rao to [employer] (Rashad ph: [phone] fax: [phone]).
[2020-12-31 15:00] VITALS: BP 112/64
[2020-12-31 19:00] VITALS: BP 121/73
[2020-12-31] MEDS: ATORVASTATIN CALCIUM 40 MG TABLET. PO SCH (20:36)
[2020-12-31] MEDS: ALBUTEROL SULFATE 8GM INHALER. INH PRN (20:37)
[2020-12-31] MEDS: traMADol 50 MG TABLET PO PRN ×3 (20:39→22:07)
[2020-12-31] MEDS: ZOLPIDEM 5 MG TABLET. PO PRN (22:02)
[2020-12-31 23:00] VITALS: BP 114/78
[2021-01-01 03:00] VITALS: BP 136/80
[2021-01-01 07:00] VITALS: BP 150/89
--- NOTE | 2021-01-01 08:02 | PDOC ---
[employer] PROGRESS NOTE Date of Service DOS: DATE: 01/01/21 TIME: 08:02 Chief Complaint Chief Complaint A/P: Acute renal failure - on CKD, likely is ESRD. Nephrology consulted, urgent HD catheter placement consented bedside, now is ESRD dialysis dependent Shortness of breath - likely acute chf due to fluid overload from renal failure Anemia - likely due to chronic renal disease Hypertensive urgency - prn hydralazine Acute systolic and diastolic CHF - The ejection fraction is severely impaired. Estimated ejection fraction 15-20%. There is mild concentric left ventricular hypertrophy. Mild troponin elevation; peak 0.22. Most probably type II, demand ischemia due to renal failure FEN - Renal PPX - heparin FULL CODE Dispo - inpatient History of Present Illness History of Present Illness Mr Diego is a 65 year old male with history of hypertension who presents with shortness of breath for the past few days. Patient states that he was seen with his primary care provider at the [place] and was provided with an albuterol inhaler at the onset of his symptoms. He states his symptoms have not improved. He reports associated weakness, decreased fluid and water intake, and orthopnea. Patient has been vaccinated against COVID-19 with both doses of Moderna vaccine in late June/early July. He denies having been tested for Covid at the [place]. Patient denies fever, chills, headache, vision changes, chest pain, palpitations, cough. He does note some memory problems and confusion WBC 4.8, Hb 9.8, platelets 393, NA 143, K4.5, BUN 70, CR 7, glucose 100, trop 0.196->0.217->0.222->0.190, NT proBNP 35,000. Rapid influenza negative rapid COVID-19 negative EKG sinus rate of 84 bpm, underlying paced rhythm noted left axis deviation QTC 514. No ST segment elevations T WI V3 V4 V5 V6 and lead I. Chest radiograph with right basilar haziness. Admitted for further care. IR placed temporary HD catheter. Cardiology and nep hrology consulted. 12/29: Tolerated dialysis well yesterday. BUN 41, CR 4.9. Breathing improved. He is skeptical about tunneled dialysis catheter placement as he thought his plan outpatient was to have PD catheter placement. Counseled that a tunneled d ialysis catheter can eventually be removed and transition to PD catheter. All questions answered. Echo with EF 15% 12/30: LDL cholesterol 118, TSH 1.8, albumin 2.6, CR 3.5 and BUN down to 21. Afebrile. N.p.o. for tunneled dialysis catheter placement today. 12/31: Afebrile overnight. Multiple questions about CHF and ESRD answered with son bedside. Still wants to go forward with peritoneal dialysis catheter She had a little anxious to go home. Amenable to [employer]. Labs consistent with ESRD. Awaiting outpatient dialysis chair time. Hepatitis B serologies negative. He is short of breath on exertion but not requiring O2. Vitals/I&O Vitals/I&O: Vital Signs Date Time Temp Pulse Resp B/P (MAP) Pulse Ox O2 Delivery O2 Flow Rate FiO2 01/01/21 03:00 98.7 69 18 136/80 (98) 97 98.7 12/31/20 21:09 Room Air 2.0 I & O 12/31/20 12/31/20 01/01/21 15:00 23:00 07:00 Intake Total 200 ml Output Total 1 ml 0 ml Balance 199 ml 0 ml Physical Exam General: Alert, Oriented X3, Cooperative, No acute distress Heart: Regular rate Abdomen: Soft, No tenderness Extremities: No edema Skin: No significant lesion Assessment and Plan Assessmemt and Plan Problems Medical Problems: (1) Elevated brain natriuretic peptide (BNP) level Status: Acute (2) ESRD (end stage renal disease) Status: Acute Comment Review of Relevant I have reviewed the following items lainey (where applicable) has been applied. Medications: Current Medications Medications (Trade) Dose Ordered Sig/Fabio Route PRN Reason Start Time Stop Time Status Last Admin Dose Admin Losartan Potassium (Cozaar) 50 mg DAILY PO 12/31/20 09:00 12/31/20 12:34 Justifications for Admission Other Justification BRITTNEY SALAS MD Jan 01, 2021 08:02
[2021-01-01] MEDS: ASPIRIN ENTERIC COATED 81 MG TABLET.DR. PO SCH (10:35)
[2021-01-01] MEDS: FLUoxetine HCL 20 MG CAPSULE PO SCH (10:35)
[2021-01-01] MEDS: GABAPENTIN 100 MG CAPSULE. PO SCH ×2 (10:36→14:05)
[2021-01-01] MEDS: LOSARTAN POTASSIUM 50 MG TABLET. PO SCH (10:36)
[2021-01-01] MEDS: hydrALAZINE 25 MG TABLET PO SCH (10:36)
[2021-01-01] MEDS: CARVEDILOL 3.125 MG TABLET. PO SCH ×2 (10:36→16:56)
[2021-01-01 11:00] VITALS: BP 111/71
--- NOTE | 2021-01-01 11:07 | PDOC ---
DATE OF SERVICE DATE: 01/01/21 TIME: 11:07 SUBJECTIVE ROS Denies SOb, No N/V OBJECTIVE Vital Signs Vital Signs Date Time Temp Pulse Resp B/P (MAP) Pulse Ox O2 Delivery O2 Flow Rate FiO2 01/01/21 10:36 72 150/89 01/01/21 07:00 97.8 16 95 97.8 12/31/20 21:09 Room Air 2.0 I & 0 Intake and Output 01/01/21 06:59 Intake Total 200 ml Output Total 1 ml Balance 199 ml Intake Oral 200 ml Output Urine Total 1 ml PHYSICAL EXAM Physical Exam General- , NAD HEN OM moist , Neck supple Lungs decreased at bases, Non labored CV S1S2 Abd soft, NT Ext No LE edema No reina Skin No rash DIAGNOSIS/ASSESSMENT Assessment & Plan new Onset ESRD - initiated HD on 12/28, tolerated well, with 2 Lt UF. 2nd treatment on 12/29 . Currently on TTS schedule as inpatient Access Tunnelled HD Cathete Per patient reported following with nephrology at [place] with plan was to get PD catheter placement at . Initiated on HD , he would like to switch to PD If approved by [place] recommend consult GS at [facility] for PD catheter placement .Discussed with Dr. Waldron, will defer to Primary OP chair time per SW Ac Resp failure - CXr Patchy right basilar airspace disease may be infectious or inflammatory in etiology.BNP elevated Anemia- baseline unknown HTN - accelerated HTN , Home antihypertensives , BP better COMMENT/RELEVANT DATA Meds Current Medications Medications (Trade) Dose Ordered Sig/Fabio Start Time Stop Time Status Last Admin Dose Admin Acetaminophen (Tylenol) 650 mg PRN Q6HRS PRN 12/28/20 07:30 Albumin Human 100 ml @ 100 mls/hr 1X PRN PRN 12/29/20 07:45 12/29/20 13:44 DC Albuterol Sulfate (Ventolin Hfa) 1 puff PRN Q4HRS PRN 12/28/20 03:30 12/31/20 20:37 1 PUFF Aspirin (Ecotrin) 81 mg DAILYWBKFT 12/29/20 08:00 01/01/21 10:35 81 MG Atorvastatin Calcium (Lipitor) 40 mg QHS 12/30/20 21:00 12/31/20 20:36 40 MG Carvedilol (Coreg) 3.125 mg BIDWMEALS 12/30/20 09:00 01/01/21 10:36 3.125 MG Cefazolin Sodium (Ancef) 1 gm 1X ONCE 12/30/20 09:30 12/30/20 09:35 DC 12/30/20 09:24 1 GM Docusate Sodium (Colace) 100 mg PRN BID PRN 12/28/20 07:15 Fentanyl Citrate (Fentanyl 2ml Vial) 100 mcg 1X ONCE 12/30/20 09:30 12/30/20 09:35 DC 12/30/20 09:24 50 MCG Fluoxetine HCl (PROzac) 40 mg DAILYWBKFT 12/28/20 08:00 01/01/21 10:35 40 MG Gabapentin (Neurontin) 100 mg TID 12/28/20 09:00 01/01/21 10:36 100 MG Hydralazine HCl (Apresoline Inj) 10 mg PRN Q4HRS PRN 12/28/20 07:30 Hydralazine HCl (Apresoline) 25 mg BID 12/28/20 09:00 01/01/21 10:36 25 MG Info (PHARMACY MONITORING -- do not chart) 1 each PRN DAILY PRN 12/31/20 09:15 UNV Labetalol HCl (Normodyne Iv Push) 10 mg 1X ONCE 12/27/20 21:30 12/27/20 21:31 DC 12/27/20 21:07 10 MG Lidocaine HCl (Buffered Lidocaine 1%) 6 ml 1X ONCE 12/28/20 11:15 12/28/20 11:16 DC 12/28/20 11:31 3 ML Lidocaine/ Epinephrine (LIDOCAINE 1%-EPI 1:100,000 Multi-Dose) 20 ml 1X ONCE 12/30/20 09:30 12/30/20 09:35 DC 12/30/20 09:28 10 ML Lisinopril (Prinivil) 10 mg DAILY 12/29/20 09:00 12/30/20 15:01 DC 12/30/20 12:22 10 MG Losartan Potassium (Cozaar) 50 mg DAILY 12/31/20 09:00 01/01/21 10:36 50 MG Midazolam HCl (Versed) 2 mg 1X ONCE 12/30/20 09:30 12/30/20 09:35 DC 12/30/20 09:24 1 MG Ondansetron HCl (Zofran) 4 mg PRN Q4HRS PRN 12/28/20 07:30 Sodium Chloride 1,000 ml @ 400 mls/hr Q2H30M PRN 12/29/20 07:45 12/29/20 19:44 DC Tramadol HCl (Ultram) 50 mg PRN Q6HRS PRN 12/28/20 07:30 12/31/20 20:39 50 MG Trazodone HCl (Desyrel) 50 mg PRN QHS PRN 12/30/20 21:30 Zolpidem Tartrate (Ambien) 5 mg PRN QHS PRN 12/30/20 21:30 12/31/20 22:02 5 MG Results All relevant outside records, renal labs, imaging studies, telemetry/EKG's were reviewed. Justicifation of Admission Dx: Justifications for Admission: Justification of Admission Dx: N/A TREVIN KANG MD Jan 01, 2021 11:07
--- NOTE | 2021-01-01 11:59 | NUR ---
GREGG following. Discussed with RN, GREGG faxed order to [facility] for life vest. GREGG met with pt RE dialysis. Pt agreeable to start with HD and transition to PD. GREGG advised inability for SW to reach dialysis SWer at [place]. GREGG faxed referral to [facility], awaiting chair time. Pt wanting to discharge today. GREGG will continue to follow. Addendum: 01/01/21 at 1246 by NEREIDA ESCOBEDO Fax did not go through to [facility] - GREGG refaxed. Addendum: 01/01/21 at 1633 by NEREIDA ESCOBEDO GREGG contacted [facility] Admissions multiple times to determine chair time - still awaiting confirmation of chair time. GREGG provided RN phone number.
--- NOTE | 2021-01-01 12:56 | PDOC ---
CARDIO Progress Notes Date and Time Date of Service Time of Evaluation 1240 Subjective Subjective: No Chest Pain, No shortness of breath, No Palpitations Vitals Vitals Vital Signs Date Time Temp Pulse Resp B/P (MAP) Pulse Ox O2 Delivery O2 Flow Rate FiO2 01/01/21 11:00 98.3 70 18 111/71 (84) 97 98.3 12/31/20 21:09 Room Air 2.0 Weight Weight [ ] Input and Output Intake and Output Intake and Output 01/01/21 07:00 Intake Total 200 ml Output Total 1 ml Balance 199 ml Intake Oral 200 ml Output Urine Total 1 ml Physical Exam HEENT: Neck Supple W Full Motion Chest: Symmetric LUNGS: Other (diminished bases) Heart: RRR (SR) Abdomen: Soft N/T Extremities: No Edema, No Calf Tenderness Neurology: alert, oriented, follow commands Assessment Assessment 1. Acute respiratory failure secondary to CHF 2. Acute on chronic systolic CHF, cardiomyopathy; echo showed severe LV dysfunction with an EF of 15%. appears compensated 3. TONA on CKD, now ESRD. 4. Hypertension; controlled 5. Mild troponin elevation; peak 0.22. Most probably type II, demand ischemia in setting of above. CP free 6. DLP 7. Dilated cardiomyopathy Recommendations Secondary prevention measures. ASA, statin HF optimization with Coreg, losartan. Consider addition of Entesto on an outpatient basis Fluid offloading via HD Will need further ischemic evaluation with probable LHC on an outpatient basis Supportive care Follow up in our office with Dr. Mclain as arranged Recheck in 3 months for optimization of medical therapy to assess need for AICD. Meantime lifevest Justicifation of Admission Dx: Justifications for Admission: Justification of Admission Dx: N/A VERONIKA GALDAMEZ APRN Jan 01, 2021 12:56
[2021-01-01 15:00] VITALS: BP 125/77
[2021-01-01] MEDS ORDERED: ATOR40TA59 PO ×2 (15:10→17:44)
[2021-01-01] MEDS ORDERED: LOSA-73 PO ×2 (15:10→17:44)
[2021-01-01] MEDS ORDERED: ASPI-886 PO ×2 (15:10→17:44)
[2021-01-01] MEDS ORDERED: CARV3.1210 PO ×2 (15:10→17:44)
[2021-01-01] MEDS ORDERED: GABA-585 PO (15:10)
[2021-01-01 16:56] VITALS: BP 125/77
--- NOTE | 2021-01-01 17:45 | PDOC3 ---
Discharge Summary Visit Information Date of Admission: Dec 27, 2020 Date of Discharge: Jan 01, 2021 Admitting Diagnosis: New ESRD, Acute systolic CHF Final Diagnosis Problems Medical Problems: (1) Elevated brain natriuretic peptide (BNP) level Status: Acute (2) ESRD (end stage renal disease) Status: Acute Brief Hospital Course Allergies Allergies Coded Allergies Type Severity Reaction Last Updated Verified No Known Drug Allergies 12/27/20 No Vital Signs Vital Signs Date Time Temp Pulse Resp B/P (MAP) Pulse Ox O2 Delivery O2 Flow Rate FiO2 01/01/21 16:56 73 125/77 01/01/21 15:00 97.9 18 96 97.9 01/01/21 08:30 Room Air 12/31/20 21:09 2.0 Lab Results Laboratory Tests Test 12/31/20 06:30 12/31/20 06:40 Hepatitis B Surface Antigen Nonreactive (Nonreactive) Hepatitis B Core Total Antibody Nonreactive (Nonreactive) Sodium Level 138 mmol/L (136-145) Potassium Level 3.9 mmol/L (3.5-5.1) Chloride Level 100 mmol/L (98-107) Carbon Dioxide Level 27 mmol/L (21-32) Anion Gap 11 (6-14) Blood Urea Nitrogen 35 mg/dL (8-26) Creatinine 4.5 mg/dL (0.7-1.3) Estimated GFR (Cockcroft-Gault) 16.0 Glucose Level 82 mg/dL (70-99) Calcium Level 8.9 mg/dL (8.5-10.1) Brief Hospital Course Mr Diego is a 65 year old male with history of hypertension who presents with shortness of breath for the past few days. Patient states that he was seen with his [facility] provider [facility] and was provided with an albuterol inhaler at the onset of his symptoms. He states his symptoms have not improved. He reports associated weakness, decreased fluid and water intake, and orthopnea. Patient has been vaccinated against COVID-19 with both doses of Moderna vaccine in late June/early July. He denies having been tested for Covid at the [facility]. Patient denies fever, chills, headache, vision changes, chest pain, palpitations, cough. He does note some memory problems and confusion WBC 4.8, Hb 9.8, platelets 393, NA 143, K4.5, BUN 70, CR 7, glucose 100, trop 0.196->0.217->0.222->0.190, NT proBNP 35,000. Rapid influenza negative rapid COVID-19 negative EKG sinus rate of 84 bpm, underlying paced rhythm noted left axis deviation QTC 514. No ST segment elevations T WI V3 V4 V5 V6 and lead I. Chest radiograph with right basilar haziness. Admitted for further care. IR placed temporary HD catheter. Cardiology and nephrology consulted. 12/29: Tolerated dialysis well yesterday. BUN 41, CR 4.9. Breathing improved. He is skeptical about tunneled dialysis catheter placement as he thought his plan outpatient was to have PD catheter placement. Counseled that a tunneled dialysis catheter can eventually be removed and transition to PD catheter. All questions answered. Echo with EF 15% 12/30: LDL cholesterol 118, TSH 1.8, albumin 2.6, CR 3.5 and BUN down to 21. Afebrile. N.p.o. for tunneled dialysis catheter placement today. 12/31: Afebrile overnight. Multiple questions about CHF and ESRD answered with son bedside. Still wants to go forward with peritoneal dialysis catheter She had a little anxious to go home. Amenable to LifeVest. Labs consistent with ESRD. Awaiting outpatient dialysis chair time. Hepatitis B serologies negative. He is short of breath on exertion but not requiring O2. Has dialysis through [facility] MWF set up so that he can transition to PD. SW unable to coordinate with [facility] due to no call back. Has cardiology f/u for EF 15-20%. Consults: Nephrology, Cardiology Problem list: Acute renal failure - on CKD, likely is ESRD. Nephrology consulted, urgent HD catheter placement consented bedside, now is ESRD dialysis dependent Shortness of breath - likely acute chf due to fluid overload from renal failure Anemia - likely due to chronic renal disease Hypertensive urgency - prn hydralazine Acute systolic and diastolic CHF - The ejection fraction is severely impaired. Estimated ejection fraction 15-20%. There is mild concentric left ventricular hypertrophy. BB, ARB, statin, ASA, lifevest. outpatient cardiology f/u Mild troponin elevation; peak 0.22. Most probably type II, demand ischemia due to renal failure Greater than 30 minutes spent on d/c home Discharge Information Condition at Discharge: Improved Follow Up: Weeks (1) Disposition/Orders: D/C to Home Scheduled Aspirin (Aspirin Ec) 81 Mg Tablet.dr, 81 MG PO DAILYWBKFT for CHF for 30 Days, #30 Ref 5 Prescribed by: BRITTNEY SALAS MD on 01/01/211743 Atorvastatin Calcium (Atorvastatin Calcium) 40 Mg Tablet, 40 MG PO QHS for CHF for 30 Days, #30 Ref 5 Prescribed by: BRITTNEY SALAS MD on 01/01/211743 Carvedilol (Carvedilol ) 3.125 Mg Tablet, 3.125 MG PO BIDWMEALS for CHF for 30 Days, #60 Ref 5 Prescribed by: BRITTNEY SALAS MD on 01/01/211743 Cholecalciferol (Vitamin D3) (Vitamin D3 ) 25 Mcg Tablet, 25 MCG PO DAILY for SUPPLEMENT, (Reported) 1,000 UNITS = 25 MCG Entered as Reported by: MARIMAR NI RN on 12/28/20237 Last Action: New Order on 12/28/20237 by MARIMAR NI RN Ferrous Sulfate (Ferrous Sulfate) 325 Mg Tablet, 1 TAB PO DAILY for supplement, #30 Ref 3 (Reported) Entered as Reported by: MARIMAR NI RN on 12/28/20237 Last Action: New Order on 12/28/20237 by MARIMAR NI RN Fluoxetine Hcl (Fluoxetine Hcl) 40 Mg Capsule, 1 CAP PO DAILYWBKFT for depression, #30 Ref 2 (Reported) Entered as Reported by: MARIMAR NI RN on 12/28/20237 Last Action: Converted on 12/28/20716 by BRITTNEY SALAS MD Gabapentin (Gabapentin ) 100 Mg Capsule, 100 MG PO TID for Neuropathy for 30 Days, #90 Ref 5 Prescribed by: BRITTNEY SALAS MD on 01/01/211509 Hydralazine Hcl (Hydralazine Hcl) 25 Mg Tablet, 1 TAB PO BID for htn, #60 Ref 5 (Reported) Entered as Reported by: MARIMAR NI RN on 12/28/20237 Last Action: Continued on 12/28/20716 by BRITTNEY SALAS MD Losartan Potassium (Cozaar ) 50 Mg Tablet, 50 MG PO DAILY for CHF for 30 Days, #30 Ref 5 Prescribed by: BRITTNEY SALAS MD on 01/01/211743 Melatonin (Melatonin) 3 Mg Tablet, 3 TAB PO QHS for sleep, #30 Ref 2 (Reported) Entered as Reported by: MARIMAR NI RN on 12/28/20237 Last Action: New Order on 12/28/20237 by MARIMAR NI RN Scheduled PRN Docusate Sodium (Colace) 100 Mg Capsule, 1 CAP PO BID PRN for CONSTIPATION for 30 Days, #60 Ref 0 (Reported) Entered as Reported by: MARIMAR NI RN on 12/28/20237 Last Action: Continued on 12/28/20716 by BRITTNEY SALAS MD Discontinued Medications Gabapentin (Gabapentin) 600 Mg Tablet, 600 MG PO TID for NEUROGENIC PAIN, (Reported) Entered as Reported by: MARIMAR NI RN on 12/28/20237 Last Action: Converted on 12/28/20716 by BRITTNEY SALAS MD Justicifation of Admission Dx: Justifications for Admission: Justification of Admission Dx: N/A BRITTNEY SALAS MD Jan 01, 2021 17:45
--- NOTE | 2021-01-01 19:17 | NUR ---
Discharge Note: KEITH MARIE N5 MURPHY Discharge instructions and discharge home medications reviewed with Patient and a copy given. All questions have been answered and understanding verbalized. The following instructions and handouts were given: Pt informed of Dialysis appointments and follow up appointment with cardiology. Cj pepe Life Vest placed life vest on pt and provided education. [facility] Discontinued IV line and Telemetry. Right Tunnelled Dialysis Catheter still in place. Patient discharged to Home or Self Care waiting on his son to arrive.
--- NOTE | 2021-01-04 12:55 | NUR ---
GREGG received a voicemail from Susie at [facility] Admissions stating pt has a chair time MWF at [facility] at 1345 and can start today, must be there at 1315 today. SW spoke with pt at home. He stated he had spoken to [facility] and they told him to be there at 1530 today. No further SW needs.
== END 2021-01-01 20:15 | disposition home or self-care (01) | DRG 673 ==
LOC: ER 18:12 → 5 NORTH 21:10
PROVIDERS: ADMIT Student in an Organized Health Care Education/Training Program; ATTEND Student in an Organized Health Care Education/Training Program
PROC: 5A1D70Z Performance of Urinary Filtration, Intermittent, Less than 6 Hours Per Day (ICD-10-PCS; 2020-12-28)
PROC: 5A1D70Z Performance of Urinary Filtration, Intermittent, Less than 6 Hours Per Day (ICD-10-PCS; 2020-12-29)
PROC: 02PYX3Z Removal of Infusion Device from Great Vessel, External Approach (ICD-10-PCS; 2020-12-29)
PROC: 02H633Z Insertion of Infusion Device into Right Atrium, Percutaneous Approach (ICD-10-PCS; 2020-12-29)
PROC: B5181ZA Fluoroscopy of Superior Vena Cava using Low Osmolar Contrast, Guidance (ICD-10-PCS; 2020-12-29)
PROC: 02HV33Z Insertion of Infusion Device into Superior Vena Cava, Percutaneous Approach (ICD-10-PCS; 2020-12-29)
PROC: B5181ZA Fluoroscopy of Superior Vena Cava using Low Osmolar Contrast, Guidance (ICD-10-PCS; 2020-12-29)
PROC: B548ZZA Ultrasonography of Superior Vena Cava, Guidance (ICD-10-PCS; 2020-12-29)
PROC: 0JH63XZ Insertion of Tunneled Vascular Access Device into Chest Subcutaneous Tissue and Fascia, Percutaneous Approach (ICD-10-PCS; principal; 2020-12-31)
DX: N17.9 Acute kidney failure, unspecified (principal); J96.00 Acute respiratory failure, unspecified whether with hypoxia or hypercapnia; I50.43 Acute on chronic combined systolic (congestive) and diastolic (congestive) heart failure; I13.2 Hypertensive heart and chronic kidney disease with heart failure and with stage 5 chronic kidney disease, or end stage renal disease; I24.8 Other forms of acute ischemic heart disease; I42.0 Dilated cardiomyopathy; D63.1 Anemia in chronic kidney disease; F32.9 Major depressive disorder, single episode, unspecified; G62.9 Polyneuropathy, unspecified; I16.0 Hypertensive urgency; N18.6 End stage renal disease; Z20.822 Contact with and (suspected) exposure to COVID-19; Z79.899 Other long term (current) drug therapy; Z82.49 Family history of ischemic heart disease and other diseases of the circulatory system; Z85.46 Personal history of malignant neoplasm of prostate; Z99.2 Dependence on renal dialysis; F41.9 Anxiety disorder, unspecified; M19.90 Unspecified osteoarthritis, unspecified site
CPT/HCPCS: 36415; 36556; 36581; 71045; 76937; 77001; 80048; 80061; 80069; 83880; 84443; 84484; 85025; 85610; 86317; 86704; 86706; 87340; 87426; 87804; 93005; 93306; 96361; 96374; 99152; C1750; C1769; C1892; J0690; J2250; J3010; J3490; J7030; U0003; U0005; 99285-25; G0378

== ENCOUNTER 2021-01-14 12:10 | Emergency (ER) | payer MEDICARE ==
[~2021-01-14] VITALS: Ht 167.6 cm; Wt 45.4 kg
[~2021-01-14 12:10] MED LIST: ASPI-886 PO; ATOR40TA59 PO; CARV3.1210 PO; CHOL10004 PO; DOCU-109 PO; FERR325T14 PO; FLUO40CA2 PO; GABA-585 PO; GABA600T7 PO; HYDR-2868 PO; LOSA-73 PO; MELA3TAB4 PO
--- NOTE | 2021-01-14 12:35 | ED.ADGEN ---
Past Medical History Past Medical History: Hypertension, Renal Failure Past Surgical History: Other Additional Past Surgical Histo: neck and back surgery Smoking Status: Never Smoker Alcohol Use: Rarely General Adult EDM: Chief Complaint: SHORTNESS OF BREATH HPI: HPI: Patient is a 65-year-old male who arrives via EMS after paramedics were contacted about the patient being short of air. Upon arrival to the emergency department the patient states he is not short of air but rather he missed dial ysis yesterday as he was at a doctor's appointment as he was having discussions about starting peritoneal dialysis. Patient states he has been confused as of late. He also reports to pain at his tailbone. Patient states his tailbone pain has been present for quite some time and was with him when he was last hospitalized last week. Despite the patient's tailbone pain, he denies any history of injury. He further denies any shortness of air, fevers or chest pain. He is awake, alert and nontoxic-appearing. He is however very frail and deconditioned. Review of Systems: Review of Systems: Constitutional: Reports fatigue. Denies fever or chills. [] Eyes: Denies change in visual acuity. [] HENT: Denies nasal congestion or sore throat. [] Respiratory: Denies cough or shortness of breath. [] Cardiovascular: Denies chest pain or edema. [] GI: Denies abdominal pain, nausea, vomiting, bloody stools or diarrhea. [] : Denies dysuria. [] Musculoskeletal: Reports tailbone pain. Denies back pain or joint pain. [] Integument: Denies rash. [] Neurologic: Reports change in mental status. Denies headache, focal weakness or sensory changes. [] Endocrine: Denies polyuria or polydipsia. [] Lymphatic: Denies swollen glands. [] Psychiatric: Denies depression or anxiety. [] Current Medications: Current Medications Medications (Trade) Dose Ordered Sig/Fabio Start Time Stop Time Status Last Admin Dose Admin Clonidine HCl (Catapres) 0.1 mg 1X ONCE 01/14/21 15:30 01/14/21 15:31 Morphine Sulfate (Morphine Sulfate) 4 mg 1X ONCE 01/14/21 13:00 01/14/21 13:01 DC 01/14/21 12:50 4 MG Ondansetron HCl (Zofran) 4 mg 1X ONCE 01/14/21 13:00 01/14/21 13:01 DC 01/14/21 12:49 4 MG Allergies: Allergies: Allergies Coded Allergies Type Severity Reaction Last Updated Verified No Known Drug Allergies 12/27/20 No Physical Exam: PE: Constitutional: Frail and debilitated appearing. No acute distress, non-toxic appearance. [] HENT: Normocephalic, atraumatic, bilateral external ears normal, oropharynx moist, no oral exudates, nose normal. [] Eyes: PERRLA, EOMI, conjunctiva normal, no discharge. [] Neck: Normal range of motion, no tenderness, supple, no stridor. [] Cardiovascular:Heart rate regular rhythm, no murmur [] Lungs & Thorax: Bilateral breath sounds clear to auscultation [] Abdomen: Bowel sounds normal, soft, no tenderness, no masses, no pulsatile masses. [] Skin: Patient has a skin breakdown in the region of the coccyx. This is consistent with a decubitus ulcer which is likely stage II. [] Back: No tenderness, no CVA tenderness. [] Extremities: No tenderness, no cyanosis, no clubbing, ROM intact, no edema. [] Neurologic: Alert and oriented X 3, normal motor function, normal sensory function, no focal deficits noted. [] Psychologic: Affect normal, judgement normal, mood normal. [] Current Patient Data: Labs: Laboratory Tests Test 01/14/21 12:27 01/14/21 12:48 White Blood Count 5.9 x10^3/uL (4.0-11.0) Red Blood Count 3.24 x10^6/uL (4.30-5.70) L Hemoglobin 9.1 g/dL (13.0-17.5) L Hematocrit 28.4 % (39.0-53.0) L Mean Corpuscular Volume 88 fL (79-100) Mean Corpuscular Hemoglobin 28 pg (25-35) Mean Corpuscular Hemoglobin Concent 32 g/dL (31-37) Red Cell Distribution Width 14.0 % (11.5-14.5) Platelet Count 463 x10^3/uL (140-400) H Neutrophils (%) (Auto) 64 % (31-73) Lymphocytes (%) (Auto) 23 % (24-48) L Monocytes (%) (Auto) 10 % (0-9) H Eosinophils (%) (Auto) 3 % (0-3) Basophils (%) (Auto) 1 % (0-3) Neutrophils # (Auto) 3.8 x10^3/uL (1.8-7.7) Lymphocytes # (Auto) 1.3 x10^3/uL (1.0-4.8) Monocytes # (Auto) 0.6 x10^3/uL (0.0-1.1) Eosinophils # (Auto) 0.2 x10^3/uL (0.0-0.7) Basophils # (Auto) 0.0 x10^3/uL (0.0-0.2) Sodium Level 140 mmol/L (136-145) Potassium Level 4.0 mmol/L (3.5-5.1) Chloride Level 103 mmol/L (98-107) Carbon Dioxide Level 29 mmol/L (21-32) Anion Gap 8 (6-14) Blood Urea Nitrogen 36 mg/dL (8-26) H Creatinine 5.7 mg/dL (0.7-1.3) H Estimated GFR (Cockcroft-Gault) 12.2 BUN/Creatinine Ratio 6 (6-20) Glucose Level 87 mg/dL (70-99) Calcium Level 8.9 mg/dL (8.5-10.1) Total Bilirubin 0.3 mg/dL (0.2-1.0) Aspartate Amino Transferase (AST) 13 U/L (15-37) L Alanine Aminotransferase (ALT) 14 U/L (16-63) L Alkaline Phosphatase 75 U/L (46-116) Troponin I Quantitative 0.060 ng/mL (0.000-0.055) Total Protein 7.4 g/dL (6.4-8.2) Albumin 2.4 g/dL (3.4-5.0) L Albumin/Globulin Ratio 0.5 (1.0-1.7) L SARS-CoV-2 Antigen (Rapid) Negative (NEGATIVE) Laboratory Tests 01/14/21 12:27 Laboratory Tests 01/14/21 12:27 Vital Signs: Vital Signs Date Time Temp Pulse Resp B/P (MAP) Pulse Ox O2 Delivery O2 Flow Rate FiO2 01/14/21 12:50 20 99 01/14/21 12:10 98.3 76 186/103 (130) Room Air 98.3 EKG: EKG: [] EKG was obtained at 1216 hrs. and revealed a sinus rhythm with a ventricular rate of 76 bpm. There is left axis deviation in addition to left anterior fasci cular block. There is QT prolongation present. There appears to be T wave inversion in the anterior lateral leads. No STEMI. Heart Score: C/O Chest Pain: No HEART Score for Chest Pain: HEART Score for Chest Pain Response (Comments) Value History Moderately Suspicious 1 ECG Nonspecific Repolarizatio 1 Age > 65 2 Risk Factors >3 Risk Factors or Hx CAD 2 Troponin >3 x Normal Limit 2 Total 8 Risk Factors: Risk Factors: DM, Current or recent (<one month) smoker, HTN, HLP, family history of CAD, obesity. Risk Scores: Score 0 - 3: 2.5% MACE over next 6 weeks - Discharge Home Score 4 - 6: 20.3% MACE over next 6 weeks - Admit for Clinical Observation Score 7 - 10: 72.7% MACE over next 6 weeks - Early Invasive Strategies Radiology/Procedures: Radiology/Procedures: [] Impression: [facility] [address] [place] [address] IMAGING REPORT Signed PATIENT: KEITH MARIE NACCOUNT: [id number] : 1955 LOCATION: ER AGE: 65 SEX: M EXAM STATUS: REG ER ORD. PHYSICIAN: RUI STEPHENSON DO REASON: Short of air PROCEDURE: PORTABLE CHEST 1V Study: XR CHEST 1V Indication: Shortness of air. Comparison: 12/27/2020 Findings: Large bore central venous catheter via a right subclavian approach with the catheter tip projecting at the distal SVC. Incompletely characterized surgical hardware at the lower cervical/upper thoracic spine. Stimulator leads course up to the neck and beyond the obtained [id number]. The cardiomediastinal silhouette is again noted to be prominent in size. No newly seen hilar abnormality. Improved aeration of the lower lungs from the prior. No newly seen focal airspace abnormality. Persistence of streaky densities at the retrocardiac left lower lung extending to the diaphragm. No increasing effusion or pneumothorax. Impression: 1. Support device positioning as above. 2. Improved appearance of the chest from 12/27/2020. There is likely persistence of atelectasis at the left lung base. No increasing effusion or pneumothorax. Electronically signed by: MARLEE KOCH MD (01/14/2021 2:22 PM) [facility] DICTATED and SIGNED BY: MARLEE KOCH MD DATE: 01/14/21 [id number] 0 Course & Med Decision Making: Course & Med Decision Making Pertinent Labs and Imaging studies reviewed. (See chart for details) The patient remains awake, alert and in no acute distress. I did speak with nephrology on-call and they stated the patient could wait until scheduled dialysis appointment tomorrow to be dialyzed disease not short of breath. Moreover social work spoke with the patient and provided him with instructions on how to obtain [facility] that [facility] were available to him at any time. Moreover I spoken with his son about the need to turn him regularly to prevent future ulcers. Additionally the patient has been provided paperwork with respect to wound care as a relates to these wounds. While the wound is not terribly extensive at this time this will continue to progress of the patient is not routinely moved/rotated. Additionally he should have regular wound care. Family is aware and has agreed to this. The patient is nontoxic-appearing and stable for discharge in the company of family [place] Disclaimer: Vahid Disclaimer: This electronic medical record was generated, in whole or in part, using a voice recognition dictation system. Departure Departure Impression: Primary Impression: Chronic renal disease Additional Impressions: Sacral decubitus ulcer, stage II Anemia in chronic kidney disease (CKD) Poorly-controlled hypertension Disposition: 01 HOME / SELF CARE / HOMELESS Condition: STABLE Referrals: UNKNOWN PCP NAME (PCP) Patient Instructions: End Stage Kidney Disease, Pressure Ulcer Scripts Hydrocodone Bit/Acetaminophen (HYDROCODONE-APAP 5-325 ) 1 Tab Tablet 1 TAB PO PRN Q6HRS PRN for PAIN for 3 Days, #12 TAB 0 Refills Prov: RUI STEPHENSON DO 01/14/21 Problem Qualifiers RUI STEPHENSON DO Jan 14, 2021 12:35
[2021-01-14 12:47] LABS: BASO % 1 % (0-3); EOS # 0.2 x10^3/uL (0.0-0.7); EOS % 3 % (0-3); HEMATOCRIT 28.4 % (39.0-53.0); HEMOGLOBIN 9.1 g/dL (13.0-17.5); LYMPH # 1.3 x10^3/uL (1.0-4.8); LYMPH % 23 % (24-48); MEAN CORPUSCULAR HEMOGLOBIN 28 pg (25-35); MEAN CORPUSCULAR HGB CONC 32 g/dL (31-37); MEAN CORPUSCULAR VOLUME 88 fL (79-100); MONO # 0.6 x10^3/uL (0.0-1.1); MONO % 10 % (0-9); NEUT # 3.8 x10^3/uL (1.8-7.7); NEUT % 64 % (31-73); PLATELET COUNT 463 x10^3/uL (140-400); RED BLOOD COUNT 3.24 x10^6/uL (4.30-5.70); WHITE BLOOD COUNT 5.9 x10^3/uL (4.0-11.0)
[2021-01-14] MEDS ORDERED: MORPHINE SULFATE 4 MG/ML INJ. IVP ONE (13:00)
[2021-01-14] MEDS ORDERED: ONDANSETRON PF 4 MG/2 ML VIAL. IVP ONE (13:00)
[2021-01-14 13:35] LABS: CALCIUM 8.9 mg/dL (8.5-10.1); CREATININE 5.7 mg/dL (0.7-1.3); GFR 12.2
[2021-01-14 13:40] LABS: ALBUMIN 2.4 g/dL (3.4-5.0); ALBUMIN/GLOBULIN RATIO 0.5 (1.0-1.7); TOTAL BILIRUBIN 0.3 mg/dL (0.2-1.0); TOTAL PROTEIN 7.4 g/dL (6.4-8.2)
--- NOTE | 2021-01-14 14:24 | RAD ---
Study: XR CHEST 1V Indication: Shortness of air. Comparison: 12/27/2020 Findings: Large bore central venous catheter via a right subclavian approach with the catheter tip projecting a t the distal SVC. Incompletely characterized surgical hardware at the lower cervical/upper thoracic s pine. Stimulator leads course up to the neck and beyond the obtained [id number]. The cardiomediastinal silhouette is again noted to be prominent in size. No newly seen hilar abnormal ity. Improved aeration of the lower lungs from the prior. No newly seen focal airspace abnormality. P ersistence of streaky densities at the retrocardiac left lower lung extending to the diaphragm. No in creasing effusion or pneumothorax. Impression: 1. Support device positioning as above. 2. Improved appearance of the chest from 12/27/2020. There is likely persistence of atelectasis at the left lung base. No increasing effusion or pneumothorax. Electronically signed by: MARLEE KOCH MD (01/14/2021 2:22 PM) [facility]
[2021-01-14] MEDS ORDERED: HYDR-2761 PO ×2 (14:35→15:07)
--- NOTE | 2021-01-14 15:29 | PDOC1 ---
History and Physical Date of Admission Date of Admission DATE: 01/14/21 TIME: 15:19 Identification/Chief Complaint Chief Complaint Missed HD Source Source: Caregiver, Chart review, Patient History of Present Illness History of Present Illness Patient 65-year-old male with past medical history ESRD on HD Monday/Monday/Monday who presents to the ED via EMS with complaints of shortness of breath. He was recently discharged from our facility after being initiated on hemodialysis. He states he missed hemodialysis yesterday because he was at yesterday for discussions about initiating peritoneal dialysis. Patient lives with a son, who states that he is very weak and largely unable to care for himself at home. He also reports to pain at his tailbone and admits to not getting up or being very mobile at baseline. Patient also states that he does not walk much and reports a poor appetite over the past several months. Labs in the ED showed potassium 4.0, BUN 36, creatinine 5.7, troponin 0.060, albumin 2.4. Upon my evaluation patient is breathing comfortably on room air. Dr. Stephenson in ED discussed the case with Dr. Simmons, who states that no need for emergent dialysis, but he can receive HD tomorrow. Will admit patient for further medical management Past Medical History Cardiovascular: HTN CENTRAL NERVOUS SYSTEM: Periperal neuropathy Heme/Onc: Anemia NOS Psych: Anxiety, Depression Musculoskeletal: Osteoarthritis Renal/: Chronic renal insuff, Prostate Ca. Past Surgical History Past Surgical History: Other Family History Family History: Hypertension Social History Smoke: No ALCOHOL: none Drugs: None Current Problem List Problem List Problems Medical Problems: (1) Anemia in chronic kidney disease (CKD) Status: Acute (2) Chronic renal disease Status: Acute (3) Poorly-controlled hypertension Status: Acute (4) Sacral decubitus ulcer, stage II Status: Acute Current Medications Current Medications Current Medications Ondansetron HCl (Zofran) 4 mg 1X ONCE IVP Last administered on 01/14/21at 12:49; Start 01/14/21 at 13:00; Stop 01/14/21 at 13:01; Status DC Morphine Sulfate (Morphine Sulfate) 4 mg 1X ONCE IVP Last administered on 01/14/21at 12:50; Start 01/14/21 at 13:00; Stop 01/14/21 at 13:01; Status DC Clonidine HCl (Catapres) 0.1 mg 1X ONCE PO ; Start 01/14/21 at 15:30; Stop 01/14/21 at 15:31 Active Scripts Active Hydrocodone-Apap 5-325 (Hydrocodone Bit/Acetaminophen) 1 Tab Tablet 1 Tab PO PRN Q6HRS PRN 3 Days Aspirin Ec (Aspirin) 81 Mg Tablet.dr 81 Mg PO DAILYWBKFT 30 Days Cozaar (Losartan Potassium) 50 Mg Tablet 50 Mg PO DAILY 30 Days Carvedilol (Carvedilol) 3.125 Mg Tablet 3.125 Mg PO BIDWMEALS 30 Days Atorvastatin Calcium 40 Mg Tablet 40 Mg PO QHS 30 Days Gabapentin (Gabapentin) 100 Mg Capsule 100 Mg PO TID 30 Days Reported Colace (Docusate Sodium) 100 Mg Capsule 1 Cap PO BID PRN 30 Days Melatonin 3 Mg Tablet 3 Tab PO QHS Vitamin D3 (Vitamin D) 25 Mcg Tablet 25 Mcg PO DAILY 1,000 UNITS = 25 MCG Ferrous Sulfate 325 Mg Tablet 1 Tab PO DAILY Hydralazine Hcl 25 Mg Tablet 1 Tab PO BID Fluoxetine Hcl 40 Mg Capsule 1 Cap PO DAILYWBKFT Allergies Allergies: Coded Allergies: No Known Drug Allergies (Unverified , 12/27/20) ROS Review of System GENERAL: Weakness. No history of weight change, or fevers. SKIN: No bruising, hair changes or rashes. EYES: No blurred, double or loss of vision. NOSE AND THROAT: No history of nosebleeds, hoarseness or sore throat. HEART: Denies chest pain, denies palpitations. LUNGS: Shortness of breath. Denies cough, hemoptysis, or wheezing. GASTROINTESTINAL: Denies nausea, vomiting, abdominal pain. GENITOURINARY: Denies dysuria, frequency, urgency, hematuria. NEUROLOGIC: Denies history of numbness, tingling, tremor or weakness. PSYCHIATRIC: Denies anxiety, denies depression. ENDOCRINE: No history of heat or cold intolerance, polyuria or polydipsia. EXTREMITIES: Denies muscle weakness, joint pain, pain on walking or stiffness. Physical Exam Physical Exam General: Alert, Oriented X3, Cooperative, No acute distress. Frail-appearing. HEENT: PERRLA, EOMI Lungs: Bibasilar Rales, normal air movement Heart: RRR, no murmurs Cardiovascular: S1, S2 Abdomen: Normal bowel sounds, Soft, No tenderness Extremities: No clubbing, No cyanosis Skin: Stage II sacral decubitus ulcer Neuro: Normal speech, Normal tone, Sensation intact Psych/Mental Status: Mental status NL, Mood NL Vitals Vitals Vital Signs Date Time Temp Pulse Resp B/P (MAP) Pulse Ox O2 Delivery O2 Flow Rate FiO2 01/14/21 12:50 20 99 01/14/21 12:10 98.3 76 186/103 (130) Room Air 98.3 Labs Labs Laboratory Tests Test 01/14/21 12:27 01/14/21 12:48 White Blood Count 5.9 x10^3/uL (4.0-11.0) Red Blood Count 3.24 x10^6/uL (4.30-5.70) Hemoglobin 9.1 g/dL (13.0-17.5) Hematocrit 28.4 % (39.0-53.0) Mean Corpuscular Volume 88 fL (79-100) Mean Corpuscular Hemoglobin 28 pg (25-35) Mean Corpuscular Hemoglobin Concent 32 g/dL (31-37) Red Cell Distribution Width 14.0 % (11.5-14.5) Platelet Count 463 x10^3/uL (140-400) Neutrophils (%) (Auto) 64 % (31-73) Lymphocytes (%) (Auto) 23 % (24-48) Monocytes (%) (Auto) 10 % (0-9) Eosinophils (%) (Auto) 3 % (0-3) Basophils (%) (Auto) 1 % (0-3) Neutrophils # (Auto) 3.8 x10^3/uL (1.8-7.7) Lymphocytes # (Auto) 1.3 x10^3/uL (1.0-4.8) Monocytes # (Auto) 0.6 x10^3/uL (0.0-1.1) Eosinophils # (Auto) 0.2 x10^3/uL (0.0-0.7) Basophils # (Auto) 0.0 x10^3/uL (0.0-0.2) Sodium Level 140 mmol/L (136-145) Potassium Level 4.0 mmol/L (3.5-5.1) Chloride Level 103 mmol/L (98-107) Carbon Dioxide Level 29 mmol/L (21-32) Anion Gap 8 (6-14) Blood Urea Nitrogen 36 mg/dL (8-26) Creatinine 5.7 mg/dL (0.7-1.3) Estimated GFR (Cockcroft-Gault) 12.2 BUN/Creatinine Ratio 6 (6-20) Glucose Level 87 mg/dL (70-99) Calcium Level 8.9 mg/dL (8.5-10.1) Total Bilirubin 0.3 mg/dL (0.2-1.0) Aspartate Amino Transf (AST/SGOT) 13 U/L (15-37) Alanine Aminotransferase (ALT/SGPT) 14 U/L (16-63) Alkaline Phosphatase 75 U/L (46-116) Troponin I Quantitative 0.060 ng/mL (0.000-0.055) Total Protein 7.4 g/dL (6.4-8.2) Albumin 2.4 g/dL (3.4-5.0) Albumin/Globulin Ratio 0.5 (1.0-1.7) SARS-CoV-2 Antigen (Rapid) Negative (NEGATIVE) Laboratory Tests Test 01/14/21 12:27 01/14/21 12:48 White Blood Count 5.9 x10^3/uL (4.0-11.0) Red Blood Count 3.24 x10^6/uL (4.30-5.70) Hemoglobin 9.1 g/dL (13.0-17.5) Hematocrit 28.4 % (39.0-53.0) Mean Corpuscular Volume 88 fL (79-100) Mean Corpuscular Hemoglobin 28 pg (25-35) Mean Corpuscular Hemoglobin Concent 32 g/dL (31-37) Red Cell Distribution Width 14.0 % (11.5-14.5) Platelet Count 463 x10^3/uL (140-400) Neutrophils (%) (Auto) 64 % (31-73) Lymphocytes (%) (Auto) 23 % (24-48) Monocytes (%) (Auto) 10 % (0-9) Eosinophils (%) (Auto) 3 % (0-3) Basophils (%) (Auto) 1 % (0-3) Neutrophils # (Auto) 3.8 x10^3/uL (1.8-7.7) Lymphocytes # (Auto) 1.3 x10^3/uL (1.0-4.8) Monocytes # (Auto) 0.6 x10^3/uL (0.0-1.1) Eosinophils # (Auto) 0.2 x10^3/uL (0.0-0.7) Basophils # (Auto) 0.0 x10^3/uL (0.0-0.2) Sodium Level 140 mmol/L (136-145) Potassium Level 4.0 mmol/L (3.5-5.1) Chloride Level 103 mmol/L (98-107) Carbon Dioxide Level 29 mmol/L (21-32) Anion Gap 8 (6-14) Blood Urea Nitrogen 36 mg/dL (8-26) Creatinine 5.7 mg/dL (0.7-1.3) Estimated GFR (Cockcroft-Gault) 12.2 BUN/Creatinine Ratio 6 (6-20) Glucose Level 87 mg/dL (70-99) Calcium Level 8.9 mg/dL (8.5-10.1) Total Bilirubin 0.3 mg/dL (0.2-1.0) Aspartate Amino Transf (AST/SGOT) 13 U/L (15-37) Alanine Aminotransferase (ALT/SGPT) 14 U/L (16-63) Alkaline Phosphatase 75 U/L (46-116) Troponin I Quantitative 0.060 ng/mL (0.000-0.055) Total Protein 7.4 g/dL (6.4-8.2) Albumin 2.4 g/dL (3.4-5.0) Albumin/Globulin Ratio 0.5 (1.0-1.7) SARS-CoV-2 Antigen (Rapid) Negative (NEGATIVE) Images Images PATIENT: KEITH MARIE NACCOUNT: [id number] : 1955 LOCATION: ER AGE: 65 SEX: M EXAM STATUS: REG ER ORD. PHYSICIAN: RUI STEPHENSON DO REASON: Short of air PROCEDURE: PORTABLE CHEST 1V Study: XR CHEST 1V Indication: Shortness of air. Comparison: 12/27/2020 Findings: Large bore central venous catheter via a right subclavian approach with the catheter tip projecting at the distal SVC. Incompletely characterized surgical hardware at the lower cervical/upper thoracic spine. Stimulator leads course up to the neck and beyond the obtained [id number]. The cardiomediastinal silhouette is again noted to be prominent in size. No newly seen hilar abnormality. Improved aeration of the lower lungs from the prior. No newly seen focal airspace abnormality. Persistence of streaky densities at the retrocardiac left lower lung extending to the diaphragm. No increasing effusion or pneumothorax. Impression: 1. Support device positioning as above. 2. Improved appearance of the chest from 12/27/2020. There is likely persistence of atelectasis at the left lung base. No increasing effusion or pneumothorax. VTE Prophylaxis Ordered VTE Prophylaxis Devices: No VTE Pharmacological Prophylaxi: Yes Assessment/Plan Assessment/Plan Physical debility ESRD HD noncompliance next Anemia Hypertensive urgency Systolic CHF Severe malnutrition Plan: We will admit patient with nephrology consult He likely had HD tomorrow PT/OT I believe he would really benefit from long-term placement if not SNU Consult wound care Resume home medications FEN - Renal diet PPX - Heparin FULL CODE Dispo - inpatient Patient names his son (Maryellen Silverman) as surrogate decision-maker Justifications for Admission Other Justification NIKOLAS HUMMEL MD Jan 14, 2021 15:29
[2021-01-14] MEDS ORDERED: cloNIDine HCL 0.1 MG TABLET PO ONE (15:30)
[2021-01-14] MEDS ORDERED: hydrALAZINE 20 MG/ML VIAL. IVP PRN (15:30)
[2021-01-14 15:44] VITALS: BP 175/86
[2021-01-14] MEDS ORDERED: HYDROcodone/APAP 5/325MG 1 TAB TABLET PO PRN (16:00)
[2021-01-14] MEDS ORDERED: ZOLPIDEM 5 MG TABLET. PO PRN (16:00)
[2021-01-14] MEDS ORDERED: CALCIUM CARBONATE 500 MG TAB.CHEW PO PRN (16:00)
[2021-01-14] MEDS ORDERED: MAGNESIUM HYDROXIDE 2,400 MG/30 ML ORAL.SUSP. PO PRN (16:00)
[2021-01-14] MEDS ORDERED: MAG HYDROX/ALUMINUM HYD/SIMETH 30 ML ORAL.SUSP PO PRN (16:00)
[2021-01-14] MEDS ORDERED: ACETAMINOPHEN 325 MG TABLET. PO PRN (16:00)
[2021-01-14] MEDS ORDERED: ONDANSETRON PF 4 MG/2 ML VIAL. IVP PRN (16:00)
[2021-01-14] MEDS ORDERED: HEPARIN for SUB-Q USE 5,000 UNIT/ML VIAL. SQ SCH (21:00)
== END 2021-01-14 16:02 | disposition home or self-care (01) ==
LOC: ER 12:10
DX: I12.9 Hypertensive chronic kidney disease with stage 1 through stage 4 chronic kidney disease, or unspecified chronic kidney disease (principal); D63.1 Anemia in chronic kidney disease; N18.9 Chronic kidney disease, unspecified; L89.152 Pressure ulcer of sacral region, stage 2; Z20.822 Contact with and (suspected) exposure to COVID-19; Z99.2 Dependence on renal dialysis
CPT/HCPCS: 36415; 71045; 80053; 84484; 85025; 87426; 93005; 96374; 96375; 99284; J0360; J2270; J2405

== ENCOUNTER 2021-03-23 06:55 | Outpatient (CLI) | payer MEDICARE ==
[2021-03-23] VITALS (15 sets, daily range): BP systolic 125–172; BP diastolic 71–86
[~2021-03-23] VITALS: Ht 165.1 cm; Wt 47.0 kg
[~2021-03-23 06:55] MED LIST changes: +HYDR-2761 PO
[2021-03-23] MEDS ORDERED: LIDOCAINE 1% PF 2 ML VIAL. ONE (07:37)
[2021-03-23] MEDS ORDERED: IODIXANOL 320 MG/ML 100 ML VIAL. ONE (07:37)
[2021-03-23 07:57] LABS: HEMOGLOBIN 7.7 g/dL (13.0-17.5); RED BLOOD COUNT 2.78 x10^6/uL (4.30-5.70); WHITE BLOOD COUNT 8.3 x10^3/uL (4.0-11.0)
[2021-03-23 08:11] LABS: PROTHROMBIN TIME PATIENT 14.8 SEC (11.7-14.0)
[2021-03-23] MEDS ORDERED: fentaNYL PF VIAL 100 MCG/2 ML VIAL ONE (08:14)
[2021-03-23] MEDS ORDERED: MIDAZOLAM HCL/PF 5 MG/5 ML VIAL. ONE (08:14)
[2021-03-23] MEDS ORDERED: HEPARIN for IV BOLUS 10,000 UNIT/10 ML VIAL. ONE (08:14)
[2021-03-23] MEDS ORDERED: NITROGLYCERIN 200 MCG/2 ML SYRINGE FOR CATH/VASC LAB. ONE (08:15)
[2021-03-23] MEDS ORDERED: VERAPAMIL 5 MG/2 ML VIAL. ONE (08:15)
[2021-03-23] MEDS ORDERED: NITROGLYCERIN 200 MCG/2 ML SYRINGE FOR CATH/VASC LAB. IART ONE (08:30)
[2021-03-23] MEDS ORDERED: fentaNYL PF VIAL 100 MCG/2 ML VIAL IVP ONE (08:30)
[2021-03-23] MEDS ORDERED: HEPARIN for IV BOLUS 10,000 UNIT/10 ML VIAL. IART ONE (08:30)
[2021-03-23] MEDS ORDERED: VERAPAMIL 5 MG/2 ML VIAL. IART ONE (08:30)
[2021-03-23] MEDS ORDERED: LIDOCAINE 1% PF 2 ML VIAL. INJ ONE (08:30)
[2021-03-23] MEDS ORDERED: MIDAZOLAM HCL/PF 5 MG/5 ML VIAL. IV ONE (08:30)
[2021-03-23] MEDS ORDERED: IODIXANOL 320 MG/ML 100 ML VIAL. IART ONE (08:30)
[2021-03-23 08:31] LABS: CALCIUM 8.1 mg/dL (8.5-10.1); CREATININE 3.2 mg/dL (0.7-1.3); GFR 23.7; POTASSIUM 3.8 mmol/L (3.5-5.1)
--- NOTE | 2021-03-23 09:13 | PDOC ---
MODERATE SEDATION ASSESSMENT RISKS/ALTERNATIVES Risks/Alternatives Risks and alternatives of this type of sedation and procedure discussed with: RISK/ALTERNATIVES: Patient H & P ON CHART H & P H & P on chart and reviewed for co-morbid conditions and appropriate labs. H&P ON CHART: Yes STATUS PREG STATUS ASSESSED: N/A MEDS/ALLERGIES REVIEWED Meds/Allergies Reviewed Medications and Allergies including time and route of recently administered narcotics and sedatives. MEDS/ALLERGIES REVIEWED: Yes ASA RATING ASA RATING: III AIRWAY ASSESSMENT Airway Assessment Airway patency, oral function limitations, presence of caps, crowns, dentures, partials, and ability to extend neck assessed. AIRWAY ASSESSMENT: Yes MALLAMPATI SCORE MALLAMPATI SCORE: II PRE-SEDATION ASSESSMENT PRE-SEDATION ASSESSMENT: Yes BALBIR HUDSON MD Mar 23, 2021 09:13
[2021-03-23] MEDS ORDERED: CONTRAST GIVEN. MC PRN (09:15)
--- NOTE | 2021-03-23 09:19 | CARD ---
MR#: [id number] Date of Study: 03/23/2021 Ordering Physician: BALBIR MCLAIN, Referring Physician: BALBIR MCLAIN, Tech: RT Beverly(R) APPROVED REPORT Technologist: Lauren Richards RT(R) Nurse: Marilou Barrett RN Procedure(s) performed: Left heart catheterization, selective coronary angiography and left ventricul ography via right transradial approach MODERATE SEDATION TIME: 30 MINUTES FLUORO TIME:4.1 MIN DOSE: 20.5 [id number] CONTRAST: 82CC VISI INDICATION The indication(s) include : Cardiomyopathy, chronic systolic heart failure. [facility] Clinical Frailty Scale [facility] Clinical Frailty Scale: Moderately Frail Heart Failure Heart Failure: Yes If Yes, Newly Diagnosed: No If Yes, HF Type: Systolic If Yes, NYHA Class: Class II CASE TECHNIQUE IV conscious sedation was used throughout procedure with appropriate monitoring and was performed in the presence of a registered nurse who was an independent trained observer other than the physician p erforming the procedure. During this case, Fluoroscopy and low osmolar contrast were used for imaging . Specimen(s) Removed: No Estimated Blood loss: 15 cc's. PROCEDURE NARRATIVE After explaining the risks, benefits and alternative options, informed consent was obtained from rusty ent. Patient was brought to the cardiac Safety Administrator and right wrist was prepped and draped in the usual fashion after confirming a positive modified Neto's test. Arterial access was obtained in the righ t radial artery and a 6 Palestinian sheath was inserted. 5 Palestinian Pb catheter was used to perform alicia ective angiography of the left and right coronary arteries. 5 Palestinian pigtail catheter was used to pe rform left ventriculography. Patient tolerated the procedure well. Hemostasis was achieved using TR band. There were no immediate complications. The following findings were noted. FINDINGS 1. Hemodynamics: Left ventricular end-diastolic pressure of 9 mmHg. No pullback gradient across the aortic valve. 2. Left ventriculography: Severe left ventricle systolic dysfunction with ejection fraction estimate d at 20 to 25%. No significant mitral regurgitation seen. 3. Coronary angiography: a. The left main coronary artery arose from the left sinus of Valsalva, gave rise to the left anteri or descending and left circumflex arteries and did not show any significant stenosis. b. The left anterior descending artery did not show any significant stenosis. c. The left circumflex artery did not show any significant stenosis. d. The right coronary artery was a large and dominant vessel arising from the right sinus of Valsalv a that showed 20% stenosis in the midsegment. Conclusion 1. No significant coronary artery disease 2. Severe left ventricular systolic dysfunction with ejection fraction estimated at 20 to 25% Recommendations Optimization of medical therapy for severe nonischemic cardiomyopathy and repeat 2D echo in 3 months to evaluate the need for AICD implantation Signed by : Balbir Mclain, Electronically Approved : 03/23/2021 09:19:23
--- NOTE | 2021-03-23 12:00 | NUR ---
Discharge Note: KEITH MARIE Discharge instructions and discharge home medications reviewed with Patient and a copy given. All questions have been answered and understanding verbalized. The following instructions and handouts were given: MODERATE SEDATION, RADIAL SITE CARE. Discontinued LEFT FOREARM PERIPHERAL IV, NO COMPLICATIONS. RIGHT RADIAL ARM BOARD SECURE, SITE- C/D/I. Patient discharged to HOME WITH HIS SON.
== END 2021-03-23 12:00 | disposition home or self-care (01) ==
LOC: CCL 06:55
PROVIDERS: ATTEND Internal Medicine Cardiovascular Disease
DX: I42.8 Other cardiomyopathies (principal); I11.0 Hypertensive heart disease with heart failure; I50.22 Chronic systolic (congestive) heart failure; E78.00 Pure hypercholesterolemia, unspecified; M19.90 Unspecified osteoarthritis, unspecified site; F41.9 Anxiety disorder, unspecified; F32.9 Major depressive disorder, single episode, unspecified; Z79.82 Long term (current) use of aspirin; Z79.899 Other long term (current) drug therapy; Z98.890 Other specified postprocedural states; Z72.89 Other problems related to lifestyle
CPT/HCPCS: 36415; 80048; 85027; 85610; 93458; 99152; 99153; C1769; C1894; J1644; J2250; J3010; J3490; Q9967

== ENCOUNTER 2021-03-31 16:06 | Observation (INO) | payer MEDICARE ==
[~2021-03-31] VITALS: Ht 162.6 cm; Wt 45.2 kg
[2021-03-31 16:56] LABS: BASO # 0.2 x10^3/uL (0.0-0.2); BASO % 3 % (0-3); EOS # 0.1 x10^3/uL (0.0-0.7); EOS % 2 % (0-3); HEMATOCRIT 25.7 % (39.0-53.0); HEMOGLOBIN 8.3 g/dL (13.0-17.5); LYMPH % 16 % (24-48); MEAN CORPUSCULAR HEMOGLOBIN 27 pg (25-35); MEAN CORPUSCULAR HGB CONC 32 g/dL (31-37); MEAN CORPUSCULAR VOLUME 85 fL (79-100); MONO # 0.5 x10^3/uL (0.0-1.1); MONO % 8 % (0-9); NEUT # 4.5 x10^3/uL (1.8-7.7); NEUT % 72 % (31-73); PLATELET COUNT 430 x10^3/uL (140-400); RED BLOOD COUNT 3.02 x10^6/uL (4.30-5.70); WHITE BLOOD COUNT 6.2 x10^3/uL (4.0-11.0)
--- NOTE | 2021-03-31 16:58 | RAD ---
Site ID: [id number] EXAMINATION: XR CHEST 1V. HISTORY: 65 years Male Reason: soa / . COMPARISON: January 14, 2021. Findings: There is a right IJ tunneled dialysis catheter with the tip of the catheter at the right at rium level.. The heart size is enlarged. No significant effusion or pneumothorax. There is a tiny lef t effusion or pleural thickening similar to the previous exam. Partially visualized the cervical spin e fusion hardware seen.. The mediastinum and dylon appear unremarkable. Impression: Cardiomegaly with no vascular congestion or focal infiltrate. Electronically signed by: Dandre Christensen MD (03/31/2021 4:55 PM) [id number]
[2021-03-31 17:05] LABS: CALCIUM 8.2 mg/dL (8.5-10.1); CREATININE 5.6 mg/dL (0.7-1.3); GFR 12.4; POTASSIUM 4.4 mmol/L (3.5-5.1)
[2021-03-31 17:12] LABS: ALBUMIN 2.5 g/dL (3.4-5.0); ALBUMIN/GLOBULIN RATIO 0.4 (1.0-1.7); MAGNESIUM 2.1 mg/dL (1.8-2.4); TOTAL BILIRUBIN 0.3 mg/dL (0.2-1.0); TOTAL PROTEIN 8.4 g/dL (6.4-8.2)
[2021-03-31 17:37] LABS: BARBITURATES NEG (NEG); BENZODIAZEPINES NEG (NEG); CANNABINOIDS NEG (NEG); COCAINE NEG (NEG); METHADONE NEG (NEG); OPIATES NEG (NEG); PHENCYCLIDINE NEG (NEG)
[2021-03-31 17:38] LABS: AMPHETAMINE/METHAMPHETAMINE NEG (NEG)
--- NOTE | 2021-03-31 17:56 | PHYS DOC ---
Past Medical History Past Medical History: Hypertension, Renal Failure Past Surgical History: Other Additional Past Surgical Histo: neck and back surgery, DIALYSIS CATHETER RIGHT CHEST Smoking Status: Never Smoker Alcohol Use: Rarely General Adult EDM: Chief Complaint: SHORTNESS OF BREATH HPI: HPI: 65-year-old male past medical history of ESRD (MWF, for the past 4 months), HTN, HLD, and HFrEF (15-50% on 2020 echo w/moderate AR/MR) presents to the ED with his son, (patient consents to his/her/their knowledge and involvement in pts' medical care), complains of increased work of breathing and shortness of breath that started today. Due to rapid breathing son did not take patient to hemodialysis. Last full dialysis was on Monday. Follows with cardiology and had a right wrist cardiac catheterization on March 23 that showed no blockages. Patient is noncompliant with his LifeVest. Reports compliance with blood pressure medications this morning. Reports his colorer is planning on a peritoneal dialysis catheter for long-term management. Review of Systems: Review of Systems: Constitutional: Denies fever or chills. [] Eyes: Denies change in visual acuity. [] HENT: Denies nasal congestion or sore throat. [] Respiratory: Denies cough or hemoptysis Cardiovascular: Denies chest pain or edema. [] GI: Denies abdominal pain, nausea, vomiting, bloody stools or diarrhea. [] Musculoskeletal: Denies back pain or joint pain. [] Integument: Denies rash or diaphoresis Neurologic: Denies headache, focal weakness or sensory changes. [] Endocrine: Denies polyuria or polydipsia. [] Lymphatic: Denies swollen glands. [] Psychiatric: Denies depression or anxiety. [] Heart Score: C/O Chest Pain: No Risk Factors: Risk Factors: DM, Current or recent (<one month) smoker, HTN, HLP, family history of CAD, obesity. Risk Scores: Score 0 - 3: 2.5% MACE over next 6 weeks - Discharge Home Score 4 - 6: 20.3% MACE over next 6 weeks - Admit for Clinical Observation Score 7 - 10: 72.7% MACE over next 6 weeks - Early Invasive Strategies Allergies: Allergies: Allergies Coded Allergies Type Severity Reaction Last Updated Verified No Known Drug Allergies 12/27/20 No Physical Exam: PE: Constitutional: Cachectic appearing but in no active distress HENT: Normocephalic, atraumatic, Eyes: EOMI, conjunctiva normal, no discharge. Neck: Normal range of motion, supple, Cardiovascular: S1/2 present, regular rhythm Lungs & Thorax: Speaking in full sentences, bilateral equal chest rise, mild to moderate labored speech and increased work of breathing, right upper chest tunneled catheter Abdomen: soft, no tenderness, Skin: Warm, dry, no erythema, no rash. [] Extremities: No tenderness, no cyanosis, no lower extremity edema Neurologic: Alert and oriented X 3, normal motor function, normal sensory function, no focal deficits noted. [] Psychologic: Affect normal, judgement normal, mood normal. [] Current Patient Data: Labs: Laboratory Tests Test 03/31/21 16:45 03/31/21 17:09 White Blood Count 6.2 x10^3/uL (4.0-11.0) Red Blood Count 3.02 x10^6/uL (4.30-5.70) L Hemoglobin 8.3 g/dL (13.0-17.5) L Hematocrit 25.7 % (39.0-53.0) L Mean Corpuscular Volume 85 fL (79-100) Mean Corpuscular Hemoglobin 27 pg (25-35) Mean Corpuscular Hemoglobin Concent 32 g/dL (31-37) Red Cell Distribution Width 17.0 % (11.5-14.5) H Platelet Count 430 x10^3/uL (140-400) H Neutrophils (%) (Auto) 72 % (31-73) Lymphocytes (%) (Auto) 16 % (24-48) L Monocytes (%) (Auto) 8 % (0-9) Eosinophils (%) (Auto) 2 % (0-3) Basophils (%) (Auto) 3 % (0-3) Neutrophils # (Auto) 4.5 x10^3/uL (1.8-7.7) Lymphocytes # (Auto) 1.0 x10^3/uL (1.0-4.8) Monocytes # (Auto) 0.5 x10^3/uL (0.0-1.1) Eosinophils # (Auto) 0.1 x10^3/uL (0.0-0.7) Basophils # (Auto) 0.2 x10^3/uL (0.0-0.2) Sodium Level 134 mmol/L (136-145) L Potassium Level 4.4 mmol/L (3.5-5.1) Chloride Level 99 mmol/L (98-107) Carbon Dioxide Level 28 mmol/L (21-32) Anion Gap 7 (6-14) Blood Urea Nitrogen 46 mg/dL (8-26) H Creatinine 5.6 mg/dL (0.7-1.3) H Estimated GFR (Cockcroft-Gault) 12.4 BUN/Creatinine Ratio 8 (6-20) Glucose Level 236 mg/dL (70-99) H Calcium Level 8.2 mg/dL (8.5-10.1) L Magnesium Level 2.1 mg/dL (1.8-2.4) Total Bilirubin 0.3 mg/dL (0.2-1.0) Aspartate Amino Transferase (AST) 9 U/L (15-37) L Alanine Aminotransferase (ALT) 11 U/L (16-63) L Alkaline Phosphatase 81 U/L (46-116) Troponin I High Sensitivity 61 ng/L (4-75) SH-Pyk-V-Type Natriuretic Peptide > 42467 pg/mL (0-124) H Total Protein 8.4 g/dL (6.4-8.2) H Albumin 2.5 g/dL (3.4-5.0) L Albumin/Globulin Ratio 0.4 (1.0-1.7) L Urine Opiates Screen Neg (NEG) Urine Methadone Screen Neg (NEG) Urine Barbiturates Neg (NEG) Urine Phencyclidine Screen Neg (NEG) Urine Amphetamine/Methamphetamine Neg (NEG) Urine Benzodiazepines Screen Neg (NEG) Urine Cocaine Screen Neg (NEG) Urine Cannabinoids Screen Neg (NEG) Urine Ethyl Alcohol Neg (NEG) Laboratory Tests 03/31/21 16:45 Laboratory Tests 03/31/21 16:45 Vital Signs: Vital Signs Date Time Temp Pulse Resp B/P (MAP) Pulse Ox O2 Delivery O2 Flow Rate FiO2 03/31/21 17:19 72 18 220/105 (143) 99 Room Air 03/31/21 16:20 98.5 98.5 EKG: EK sinus rhythm 70 bpm, left axis deviation, QTC 489, T wave inversion in 2, 3, aVF and V6, no ST elevation or ST depression, denies any active chest pain 1721 sinus rhythm 70 bpm, left axis deviation, QRS 124, QTc 496, T wave inversion in 2, 3, aVF and V6, no ST elevation or ST depression, no active chest pain Radiology/Procedures: Radiology/Procedures: IMAGING REPORT Signed PATIENT: KEITH MARIE NACCOUNT: [id number] : 1955 LOCATION: ER AGE: 65 SEX: M EXAM STATUS: PRE ER ORD. PHYSICIAN: SHEELA MEZA DO REASON: soa PROCEDURE: PORTABLE CHEST 1V Site ID: [id number] EXAMINATION: XR CHEST 1V. HISTORY: 65 years Male Reason: soa / . COMPARISON: January 14, 2021. Findings: There is a right IJ tunneled dialysis catheter with the tip of the catheter at the right atrium level.. The heart size is enlarged. No significant effusion or pneumothorax. There is a tiny left effusion or pleural thickening similar to the previous exam. Partially visualized the cervical spine fusion hardware seen.. The mediastinum and dylon appear unremarkable. Impression: Cardiomegaly with no vascular congestion or focal infiltrate. Electronically signed by: Elizabeth Christensen MD (03/31/2021 4:55 PM) [id number] DICTATED and SIGNED BY: ELIZABETH CHRISTENSEN MD DATE: 03/31/21 [id number] Course & Med Decision Making: Course & Med Decision Making Pertinent Labs and Imaging studies reviewed. (See chart for details) Concern for symptomatic hypertension in the setting of the systolic heart fail ure and missed hemodialysis. Patient is tachypneic emergency department. Will start antihypertensives and admit for further medical management with nephrology consulted. Patient stable time of admission and he and his son agree with this plan. I have spoken with the patient and/or caregivers. I have explained the patient's condition, diagnosis and treatment plan based on the information avail able to me at this time. I have answered the patient's and/or caregivers questions and answered any concerns. The patient and/or caregivers have as good an understanding of the patient's diagnosis, condition and treatment plan as can be expected at this point. The patient has been stabilized within the capability of the emergency department. The patient will be transported for further care and management or will be moved to an observation or inpatient service. I have communicated with the staff or medical practitioner taking over this patient's care. Vahid Disclaimer: Vahid Disclaimer: This electronic medical record was generated, in whole or in part, using a voice recognition dictation system. Departure Departure Impression: Primary Impression: Hypertension with goal of symptom management only Additional Impression: Shortness of breath Disposition: ADMITTED INPATIENT Admitting Physician: EVERARDO (Dr. Cisneros) Condition: STABLE Referrals: UNKNOWN PCP NAME (PCP) SHEELA MEZA DO Mar 31, 2021 17:56
[2021-03-31] MEDS ORDERED: hydrALAZINE 20 MG/ML VIAL. IVP ONE (18:00)
[2021-03-31 19:13] VITALS: BP 185/85
--- NOTE | 2021-03-31 20:53 | PDOC1 ---
History and Physical Date of Service: DOS: DATE: 03/31/21 TIME: 20:53 Chief Complaint: Chief Complain: Shortness of breath History of Present Illness: HPI: 65-year-old male past medical history of ESRD (MWF, for the past 4 months), HTN, HLD, and HFrEF (15-50% on 2020 echo w/moderate AR/MR) presents to the ED with his son complains of increased work of breathing and shortness of breath that started today. Due to rapid breathing son did not take patient to hemodialysis. Last full dialysis was on Monday. Follows with cardiology and had a right wrist cardiac catheterization on March 23 that showed no blockages. Patient is noncompliant with his LifeVest. Reports compliance with blood pressure medications this morning. Reports his newspaper columnist is planning on a peritoneal dialysis catheter for long-term management. Past Medical/Surgical History: PMH/PSH: ESRD Allergies: Allergies: Coded Allergies: No Known Drug Allergies (Unverified , 12/27/20) Family History: Family History: HTN Social History: Social History: Denies alcohol tobacco drug use Current Medications: Current Medications Current Medications Hydralazine HCl (Apresoline Inj) 10 mg 1X ONCE IVP Last administered on 03/31/21at 18:13; Start 03/31/21 at 18:00; Stop 03/31/21 at 18:01; Status DC Active Scripts Active Aspirin Ec (Aspirin) 81 Mg Tablet. 81 Mg PO DAILYWBKFT 30 Days Cozaar (Losartan Potassium) 50 Mg Tablet 50 Mg PO DAILY 30 Days Carvedilol (Carvedilol) 3.125 Mg Tablet 3.125 Mg PO BIDWMEALS 30 Days Atorvastatin Calcium 40 Mg Tablet 40 Mg PO QHS 30 Days Gabapentin (Gabapentin) 100 Mg Capsule 100 Mg PO TID 30 Days Reported Colace (Docusate Sodium) 100 Mg Capsule 1 Cap PO BID PRN 30 Days Melatonin 3 Mg Tablet 3 Tab PO QHS Vitamin D3 (Vitamin D) 25 Mcg Tablet 25 Mcg PO DAILY 1,000 UNITS = 25 MCG Ferrous Sulfate 325 Mg Tablet 1 Tab PO DAILY Hydralazine Hcl 25 Mg Tablet 1 Tab PO BID Fluoxetine Hcl 40 Mg Capsule 1 Cap PO DAILYWBKFT ROS: Review of Systems Review of System Unless noted in HPI 14 point review of systems was negative Physical Exam: Vital Signs: Vital Signs Date Time Temp Pulse Resp B/P (MAP) Pulse Ox O2 Delivery O2 Flow Rate FiO2 03/31/21 18:25 75 18 184/90 (121) 100 Room Air 03/31/21 18:14 98.5 98.5 Physcial Exam: GEN: No apparent distress. Alert and oriented HEENT: Normal cephalic, atraumatic, external auditory canals are patent EYES: Extraocular muscles are intact, pupil are equally round and reactive to light and accommodation MUSCULOSKELETAL: Well developed , well nourished, good range of motion ENDOCRINE: No thyromegaly was palpated LYMPHATICS: No cervical chain or axillary nodes were noted HEMATOPOIETIC: No bruising NECK: Supple, no JVD, no thyromegaly was noted LUNGS: Clear to auscultation in all lung wolf without rhonchi or wheezing HEART: RRR, S!, S2 present. Peripheral pulses intact, no obvious murmurs noted ABDOMEN: Soft, nontender. Positive bowel sounds, no organomegaly, normal bowel sounds EXTREMITIES: Without clubbing, cyanosis, or edema. Pedal pulses intact. Negative Homans sign NEUROLOGIC: Normal speech and tone. A&O x 3, moves all extremities, no obvious focal deficits PSYCHIATRIC: Normal affect, normal mood. Stable SKIN: No ulcerations or rashes, good skin turgor, no jaundice VASCULAR: Good capillary refill, neurovascular bundle appears to be intact Labs: Labs: Laboratory Tests Test 03/31/21 16:45 03/31/21 17:09 03/31/21 20:00 White Blood Count 6.2 x10^3/uL (4.0-11.0) Red Blood Count 3.02 x10^6/uL (4.30-5.70) Hemoglobin 8.3 g/dL (13.0-17.5) Hematocrit 25.7 % (39.0-53.0) Mean Corpuscular Volume 85 fL (79-100) Mean Corpuscular Hemoglobin 27 pg (25-35) Mean Corpuscular Hemoglobin Concent 32 g/dL (31-37) Red Cell Distribution Width 17.0 % (11.5-14.5) Platelet Count 430 x10^3/uL (140-400) Neutrophils (%) (Auto) 72 % (31-73) Lymphocytes (%) (Auto) 16 % (24-48) Monocytes (%) (Auto) 8 % (0-9) Eosinophils (%) (Auto) 2 % (0-3) Basophils (%) (Auto) 3 % (0-3) Neutrophils # (Auto) 4.5 x10^3/uL (1.8-7.7) Lymphocytes # (Auto) 1.0 x10^3/uL (1.0-4.8) Monocytes # (Auto) 0.5 x10^3/uL (0.0-1.1) Eosinophils # (Auto) 0.1 x10^3/uL (0.0-0.7) Basophils # (Auto) 0.2 x10^3/uL (0.0-0.2) Sodium Level 134 mmol/L (136-145) Potassium Level 4.4 mmol/L (3.5-5.1) Chloride Level 99 mmol/L (98-107) Carbon Dioxide Level 28 mmol/L (21-32) Anion Gap 7 (6-14) Blood Urea Nitrogen 46 mg/dL (8-26) Creatinine 5.6 mg/dL (0.7-1.3) Estimated GFR (Cockcroft-Gault) 12.4 BUN/Creatinine Ratio 8 (6-20) Glucose Level 236 mg/dL (70-99) Calcium Level 8.2 mg/dL (8.5-10.1) Magnesium Level 2.1 mg/dL (1.8-2.4) Total Bilirubin 0.3 mg/dL (0.2-1.0) Aspartate Amino Transf (AST/SGOT) 9 U/L (15-37) Alanine Aminotransferase (ALT/SGPT) 11 U/L (16-63) Alkaline Phosphatase 81 U/L (46-116) Troponin I High Sensitivity 61 ng/L (4-75) 62 ng/L (4-75) RW-Izc-C-Type Natriuretic Peptide > 41957 pg/mL (0-124) Total Protein 8.4 g/dL (6.4-8.2) Albumin 2.5 g/dL (3.4-5.0) Albumin/Globulin Ratio 0.4 (1.0-1.7) Urine Opiates Screen Neg (NEG) Urine Methadone Screen Neg (NEG) Urine Barbiturates Neg (NEG) Urine Phencyclidine Screen Neg (NEG) Urine Amphetamine/Methamphetamine Neg (NEG) Urine Benzodiazepines Screen Neg (NEG) Urine Cocaine Screen Neg (NEG) Urine Cannabinoids Screen Neg (NEG) Urine Ethyl Alcohol Neg (NEG) Laboratory Tests Test 03/31/21 16:45 03/31/21 17:09 03/31/21 20:00 White Blood Count 6.2 x10^3/uL (4.0-11.0) Red Blood Count 3.02 x10^6/uL (4.30-5.70) Hemoglobin 8.3 g/dL (13.0-17.5) Hematocrit 25.7 % (39.0-53.0) Mean Corpuscular Volume 85 fL (79-100) Mean Corpuscular Hemoglobin 27 pg (25-35) Mean Corpuscular Hemoglobin Concent 32 g/dL (31-37) Red Cell Distribution Width 17.0 % (11.5-14.5) Platelet Count 430 x10^3/uL (140-400) Neutrophils (%) (Auto) 72 % (31-73) Lymphocytes (%) (Auto) 16 % (24-48) Monocytes (%) (Auto) 8 % (0-9) Eosinophils (%) (Auto) 2 % (0-3) Basophils (%) (Auto) 3 % (0-3) Neutrophils # (Auto) 4.5 x10^3/uL (1.8-7.7) Lymphocytes # (Auto) 1.0 x10^3/uL (1.0-4.8) Monocytes # (Auto) 0.5 x10^3/uL (0.0-1.1) Eosinophils # (Auto) 0.1 x10^3/uL (0.0-0.7) Basophils # (Auto) 0.2 x10^3/uL (0.0-0.2) Sodium Level 134 mmol/L (136-145) Potassium Level 4.4 mmol/L (3.5-5.1) Chloride Level 99 mmol/L (98-107) Carbon Dioxide Level 28 mmol/L (21-32) Anion Gap 7 (6-14) Blood Urea Nitrogen 46 mg/dL (8-26) Creatinine 5.6 mg/dL (0.7-1.3) Estimated GFR (Cockcroft-Gault) 12.4 BUN/Creatinine Ratio 8 (6-20) Glucose Level 236 mg/dL (70-99) Calcium Level 8.2 mg/dL (8.5-10.1) Magnesium Level 2.1 mg/dL (1.8-2.4) Total Bilirubin 0.3 mg/dL (0.2-1.0) Aspartate Amino Transf (AST/SGOT) 9 U/L (15-37) Alanine Aminotransferase (ALT/SGPT) 11 U/L (16-63) Alkaline Phosphatase 81 U/L (46-116) Troponin I High Sensitivity 61 ng/L (4-75) 62 ng/L (4-75) PD-Tik-M-Type Natriuretic Peptide > 04429 pg/mL (0-124) Total Protein 8.4 g/dL (6.4-8.2) Albumin 2.5 g/dL (3.4-5.0) Albumin/Globulin Ratio 0.4 (1.0-1.7) Urine Opiates Screen Neg (NEG) Urine Methadone Screen Neg (NEG) Urine Barbiturates Neg (NEG) Urine Phencyclidine Screen Neg (NEG) Urine Amphetamine/Methamphetamine Neg (NEG) Urine Benzodiazepines Screen Neg (NEG) Urine Cocaine Screen Neg (NEG) Urine Cannabinoids Screen Neg (NEG) Urine Ethyl Alcohol Neg (NEG) Assessment/Plan Assessment/Plan Shortness of breath secondary to hypertensive urgency. History of ESRD -Admit to hospital. Resume home meds treat blood pressure with as needed's -May need adjustment on home regimen -No apparent infectious signs -Nephro consulted to resume dialysis -DVT prophylaxis -Renal diet Justifications for Admission Other Justification BRITTNEY BRAVO MD Mar 31, 2021 20:53
[2021-03-31 23:00] VITALS: BP 199/106
[2021-04-01 03:00] VITALS: BP 209/109
--- NOTE | 2021-04-01 06:18 | EKG ---
[facility] [address] [place] [address] Test Date: 2021-03-31 Test Time: 17:21:39 Pat Name: KEITH MARIE Department: Room: 521 1 Gender: M Paper Stripper: : 1955 Requested By: SHEELA MEZA Order Number: [id number] Reading MD: Tien Pitts Measurements Intervals [place] Rate: 70 P: 51 CO: 142 QRS: -47 QRSD: 124 T: 255 QT: 456 QTc: 496 Interpretive Statements SINUS RHYTHM LEFT ATRIAL ABNORMALITY ABNORMAL LEFT AXIS DEVIATION LVH WITH REPOLARIZATION ABNORMALITY NON SPECIFIC ST-T WAVE CHANGES Electronically Signed On 04-02-2021 16:00:56 HOISTMAN by Tien Pitts
--- NOTE | 2021-04-01 06:19 | EKG ---
[facility] [address] [place] [address] Test Date: 2021-03-31 Test Time: 16:32:10 Pat Name: KEITH MARIE Department: Room: 521 1 Gender: M Retail Loan Officer: : 1955 Requested By: SHEELA MEZA Order Number: [id number] Reading MD: Tien Pitts Measurements Intervals [place] Rate: 70 P: 52 NM: 144 QRS: -44 QRSD: 118 T: -98 QT: 450 QTc: 489 Interpretive Statements SINUS RHYTHM LEFT ATRIAL ABNORMALITY ABNORMAL LEFT AXIS DEVIATION LEFT ANTERIOR FASCICULAR BLOCK LVH WITH REPOLARIZATION ABNORMALITY POSSIBLE ISCHEMIA PROLONGED QT Electronically Signed On 04-02-2021 16:04:38 CUSTOMER SERVICE COORDINATOR by Tien Pitts
[2021-04-01 07:00] VITALS: BP 200/106
--- NOTE | 2021-04-01 10:21 | PDOC2 ---
CONSULT Date of Consult Date of Consult DATE: 04/01/21 TIME: : Reason for Consult Reason for Consult: ESRD Identification/Chief Complaint Chief Complaint Currently No complaints Source Source: Chart review, Patient History of Present Illness Reason for Visit: 65-year-old AA male past medical history of ESRD (MWF, for the past 4 months), HTN, HLD, and HFrEF (15-50% on 2020 echo w/moderate AR/MR) presents to the ED with his son, , complains of increased work of breathing and shortness of breath that started today. Last full dialysis was on Monday. Follows with cardiology and had a right wrist cardiac catheterization on March 23 that showed no blockages. Patient is noncompliant with his LifeVest. Reports compliance with blood pressure medications this morning. Currently he denies any SOB. No CP. No N/V. No F/C. He has been Non compliant with dialysis treatments, misses treatments per the [facility] charge nurse . Pt reports he is schedule for PD Cath placement next week. He is a Past Medical History Cardiovascular: HTN CENTRAL NERVOUS SYSTEM: Periperal neuropathy Heme/Onc: Anemia NOS Psych: Anxiety, Depression Musculoskeletal: Osteoarthritis Renal/: Chronic renal insuff, Prostate Ca. Past Surgical History Past Surgical History: Other Family History Family History: Hypertension Social History ALCOHOL: none Drugs: None Lives: with Family Current Problem List Problem List Problems Medical Problems: (1) Hypertension with goal of symptom management only Status: Acute Current Medications Current Medications Current Medications Hydralazine HCl (Apresoline Inj) 10 mg 1X ONCE IVP Last administered on 03/31/21at 18:13; Start 03/31/21 at 18:00; Stop 03/31/21 at 18:01; Status DC Aspirin (Ecotrin) 81 mg DAILYWBKFT PO ; Start 04/01/21 at 11:00 Atorvastatin Calcium (Lipitor) 40 mg QHS PO ; Start 04/01/21 at 21:00 Carvedilol (Coreg) 3.125 mg BIDWMEALS PO ; Start 04/01/21 at 10:30 Vitamin D (Vitamin D3) 1,000 unit DAILY PO ; Start 04/02/21 at 09:00 Ferrous Sulfate (Feosol) 325 mg DAILY PO ; Start 04/02/21 at 09:00; Status UNV Gabapentin (Neurontin) 100 mg TID PO ; Start 04/01/21 at 14:00; Status UNV Hydralazine HCl (Apresoline) 25 mg BID PO ; Start 04/01/21 at 21:00; Status UNV Losartan Potassium (Cozaar) 50 mg DAILY PO ; Start 04/02/21 at 09:00; Status UNV Non-Formulary Medication (Fluoxetine Hcl ) 1 cap DAILYWBKFT PO ; Start 04/02/21 at 08:00; Status UNV Active Scripts Active Aspirin Ec (Aspirin) 81 Mg Tablet.dr 81 Mg PO DAILYWBKFT 30 Days Cozaar (Losartan Potassium) 50 Mg Tablet 50 Mg PO DAILY 30 Days Carvedilol (Carvedilol) 3.125 Mg Tablet 3.125 Mg PO BIDWMEALS 30 Days Atorvastatin Calcium 40 Mg Tablet 40 Mg PO QHS 30 Days Gabapentin (Gabapentin) 100 Mg Capsule 100 Mg PO TID 30 Days Reported Colace (Docusate Sodium) 100 Mg Capsule 1 Cap PO BID PRN 30 Days Melatonin 3 Mg Tablet 3 Tab PO QHS Vitamin D3 (Vitamin D) 25 Mcg Tablet 25 Mcg PO DAILY 1,000 UNITS = 25 MCG Ferrous Sulfate 325 Mg Tablet 1 Tab PO DAILY Hydralazine Hcl 25 Mg Tablet 1 Tab PO BID Fluoxetine Hcl 40 Mg Capsule 1 Cap PO DAILYWBKFT Allergies Allergies: Coded Allergies: No Known Drug Allergies (Unverified , 12/27/20) ROS Review of System As per HPI, rest of the ROS is negative Physical Exam Physical Exam General- , NAD HEN OM moist , Neck supple Lungs decreased at bases, Non labored CV S1S2 Abd soft, NT Ext No LE edema No reina Skin No rash Vital Signs Vital Signs Date Time Temp Pulse Resp B/P (MAP) Pulse Ox O2 Delivery O2 Flow Rate FiO2 04/01/21 07:00 97.6 67 18 200/106 (137) 94 Room Air 97.6 Assessment & Plan ESRD - initiated HD on 12/28/2020 , on MWF schedule at [facility]; Hx of chronic non compliance per Dialysis charge nurse . Currently Euvolemic on exam E-Lytes stable. No emergent indication for dialysis . Patient doesnt want to wait till as he states he is feeling well He will go back to his OP dialysis unit tomorrow. Called and informed the unit Access Tunnelled HD Catheter. He is scheduled for PD cath placement next week Shortness of breath POA- Currently on RA, CXr unremarkable, No reported Congestion, BNP elevated but pt has been Non compliant. He doesnt want to wait till later for to get dialysis today. No emergent indication currently . He will go tomorrow to his OP unit Anemia- SHANEL and IV Fe at OP unit per protocol HTN - Home antihypertensives , Non compliant with meds and dialysis CHF - HFrEF (15-50% on 2020 echo w/moderate AR/MR) S/P right wrist cardiac catheterization on March 23 that showed no blockages. Patient is noncompliant with his LifeVest. Labs Labs Laboratory Tests Test 03/31/21 16:45 03/31/21 17:09 03/31/21 20:00 04/01/21 05:30 White Blood Count 6.2 x10^3/uL (4.0-11.0) Red Blood Count 3.02 x10^6/uL (4.30-5.70) Hemoglobin 8.3 g/dL (13.0-17.5) Hematocrit 25.7 % (39.0-53.0) Mean Corpuscular Volume 85 fL (79-100) Mean Corpuscular Hemoglobin 27 pg (25-35) Mean Corpuscular Hemoglobin Concent 32 g/dL (31-37) Red Cell Distribution Width 17.0 % (11.5-14.5) Platelet Count 430 x10^3/uL (140-400) Neutrophils (%) (Auto) 72 % (31-73) Lymphocytes (%) (Auto) 16 % (24-48) Monocytes (%) (Auto) 8 % (0-9) Eosinophils (%) (Auto) 2 % (0-3) Basophils (%) (Auto) 3 % (0-3) Neutrophils # (Auto) 4.5 x10^3/uL (1.8-7.7) Lymphocytes # (Auto) 1.0 x10^3/uL (1.0-4.8) Monocytes # (Auto) 0.5 x10^3/uL (0.0-1.1) Eosinophils # (Auto) 0.1 x10^3/uL (0.0-0.7) Basophils # (Auto) 0.2 x10^3/uL (0.0-0.2) Sodium Level 134 mmol/L (136-145) Potassium Level 4.4 mmol/L (3.5-5.1) Chloride Level 99 mmol/L (98-107) Carbon Dioxide Level 28 mmol/L (21-32) Anion Gap 7 (6-14) Blood Urea Nitrogen 46 mg/dL (8-26) Creatinine 5.6 mg/dL (0.7-1.3) Estimated GFR (Cockcroft-Gault) 12.4 BUN/Creatinine Ratio 8 (6-20) Glucose Level 236 mg/dL (70-99) Calcium Level 8.2 mg/dL (8.5-10.1) Magnesium Level 2.1 mg/dL (1.8-2.4) Total Bilirubin 0.3 mg/dL (0.2-1.0) Aspartate Amino Transf (AST/SGOT) 9 U/L (15-37) Alanine Aminotransferase (ALT/SGPT) 11 U/L (16-63) Alkaline Phosphatase 81 U/L (46-116) Troponin I High Sensitivity 61 ng/L (4-75) 62 ng/L (4-75) 57 ng/L (4-75) CO-Bkv-H-Type Natriuretic Peptide > 98294 pg/mL (0-124) Total Protein 8.4 g/dL (6.4-8.2) Albumin 2.5 g/dL (3.4-5.0) Albumin/Globulin Ratio 0.4 (1.0-1.7) Urine Opiates Screen Neg (NEG) Urine Methadone Screen Neg (NEG) Urine Barbiturates Neg (NEG) Urine Phencyclidine Screen Neg (NEG) Urine Amphetamine/Methamphetamine Neg (NEG) Urine Benzodiazepines Screen Neg (NEG) Urine Cocaine Screen Neg (NEG) Urine Cannabinoids Screen Neg (NEG) Urine Ethyl Alcohol Neg (NEG) Laboratory Tests Test 03/31/21 16:45 03/31/21 17:09 03/31/21 20:00 04/01/21 05:30 White Blood Count 6.2 x10^3/uL (4.0-11.0) Red Blood Count 3.02 x10^6/uL (4.30-5.70) Hemoglobin 8.3 g/dL (13.0-17.5) Hematocrit 25.7 % (39.0-53.0) Mean Corpuscular Volume 85 fL (79-100) Mean Corpuscular Hemoglobin 27 pg (25-35) Mean Corpuscular Hemoglobin Concent 32 g/dL (31-37) Red Cell Distribution Width 17.0 % (11.5-14.5) Platelet Count 430 x10^3/uL (140-400) Neutrophils (%) (Auto) 72 % (31-73) Lymphocytes (%) (Auto) 16 % (24-48) Monocytes (%) (Auto) 8 % (0-9) Eosinophils (%) (Auto) 2 % (0-3) Basophils (%) (Auto) 3 % (0-3) Neutrophils # (Auto) 4.5 x10^3/uL (1.8-7.7) Lymphocytes # (Auto) 1.0 x10^3/uL (1.0-4.8) Monocytes # (Auto) 0.5 x10^3/uL (0.0-1.1) Eosinophils # (Auto) 0.1 x10^3/uL (0.0-0.7) Basophils # (Auto) 0.2 x10^3/uL (0.0-0.2) Sodium Level 134 mmol/L (136-145) Potassium Level 4.4 mmol/L (3.5-5.1) Chloride Level 99 mmol/L (98-107) Carbon Dioxide Level 28 mmol/L (21-32) Anion Gap 7 (6-14) Blood Urea Nitrogen 46 mg/dL (8-26) Creatinine 5.6 mg/dL (0.7-1.3) Estimated GFR (Cockcroft-Gault) 12.4 BUN/Creatinine Ratio 8 (6-20) Glucose Level 236 mg/dL (70-99) Calcium Level 8.2 mg/dL (8.5-10.1) Magnesium Level 2.1 mg/dL (1.8-2.4) Total Bilirubin 0.3 mg/dL (0.2-1.0) Aspartate Amino Transf (AST/SGOT) 9 U/L (15-37) Alanine Aminotransferase (ALT/SGPT) 11 U/L (16-63) Alkaline Phosphatase 81 U/L (46-116) Troponin I High Sensitivity 61 ng/L (4-75) 62 ng/L (4-75) 57 ng/L (4-75) RC-Jmp-L-Type Natriuretic Peptide > 13752 pg/mL (0-124) Total Protein 8.4 g/dL (6.4-8.2) Albumin 2.5 g/dL (3.4-5.0) Albumin/Globulin Ratio 0.4 (1.0-1.7) Urine Opiates Screen Neg (NEG) Urine Methadone Screen Neg (NEG) Urine Barbiturates Neg (NEG) Urine Phencyclidine Screen Neg (NEG) Urine Amphetamine/Methamphetamine Neg (NEG) Urine Benzodiazepines Screen Neg (NEG) Urine Cocaine Screen Neg (NEG) Urine Cannabinoids Screen Neg (NEG) Urine Ethyl Alcohol Neg (NEG) Review All relevant outside records, renal labs, imaging studies, telemetry/EKG's were reviewed. Images Images EXAMINATION: XR CHEST 1V. HISTORY: 65 years Male Reason: soa / . COMPARISON: January 14, 2021. Findings: There is a right IJ tunneled dialysis catheter with the tip of the catheter at the right atrium level.. The heart size is enlarged. No significant effusion or pneumothorax. There is a tiny left effusion or pleural thickening similar to the previous exam. Partially visualized the cervical spine fusion hardware seen.. The mediastinum and dylon appear unremarkable. Impression: Cardiomegaly with no vascular congestion or focal infiltrate. Electronically signed by: Dandre Christensen MD (03/31/2021 4:55 PM) [id number] TREVIN KANG MD Apr 01, 2021 10:21
[2021-04-01] MEDS ORDERED: ACETAMINOPHEN 325 MG TABLET. PO PRN (10:30)
[2021-04-01] MEDS ORDERED: ELECTROLYTE (NON-ICU) PROTOCOL. MC PRN (10:30)
[2021-04-01] MEDS ORDERED: hydrALAZINE 25 MG TABLET PO SCH (10:30)
[2021-04-01] MEDS ORDERED: ONDANSETRON PF 4 MG/2 ML VIAL. IVP PRN (10:30)
[2021-04-01] MEDS ORDERED: CALCIUM CARBONATE 500 MG TAB.CHEW PO PRN (10:30)
[2021-04-01] MEDS ORDERED: LOSARTAN POTASSIUM 50 MG TABLET. PO SCH (10:30)
[2021-04-01] MEDS ORDERED: ZOLPIDEM 5 MG TABLET. PO PRN (10:30)
[2021-04-01] MEDS ORDERED: oxyCODONE IR 5 MG TABLET PO PRN (10:30)
[2021-04-01] MEDS ORDERED: CARVEDILOL 3.125 MG TABLET. PO SCH (10:30)
--- NOTE | 2021-04-01 10:30 | NUR ---
SW following. Discussed with RN, pt from home with son, room air, renal diet. Pt does dialysis MWF at [facility]. Pt was set up fro a life vest last admission. Pt wanting to discharge home today after dialysis. SW will continue to follow.
[2021-04-01 11:00] VITALS: BP 188/104
[2021-04-01] MEDS ORDERED: FLUoxetine HCL 20 MG CAPSULE PO SCH (11:00)
[2021-04-01] MEDS ORDERED: ASPIRIN ENTERIC COATED 81 MG TABLET.DR. PO SCH (11:00)
--- NOTE | 2021-04-01 12:30 | NUR ---
Patient discharged home to brother in stable condition. Patient to go to dialysis center tomorrow. No new prescriptions given.
--- NOTE | 2021-04-01 13:02 | PDOC3 ---
[facility]-Discharge Summary Date of Admission: Date of Admission: Mar 31, 2021 Date of Discharge: Date of Discharge: Apr 01, 2021 Admission Diagnosis: Admitting Diagnosis: Shortness of breath Consults: Consults: Nephrology Hospital Course: Hospital Course: 65-year-old male past medical history of ESRD (MWF, for the past 4 months), HTN, HLD, and HFrEF (15-50% on 2020 echo w/moderate AR/MR) presents to the ED with his son complains of increased work of breathing and shortness of breath that started today. Due to rapid breathing son did not take patient to hemodialysis. Last full dialysis was on Monday. Follows with cardiology and had a right wrist cardiac catheterization on March 23 that showed no blockages. Patient is noncompliant with his LifeVest. Reports compliance with blood pressure medications this morning. Reports his business excellence leader is planning on a peritoneal dialysis catheter for long-term management. 04/01 Received call from nursing that patient said he was just going to go home and resume his home dialysis tomorrow. He did not want to wait for it here. Okay with this. Recommended him home med compliance along with dialysis compliance. Greater than 30 minutes spent on discharge. Disposition: Disposition/Orders: D/C to Home Activity: Activity: Resume previous activity Diet: Diet: Renal Medications: Home Meds Active Scripts Aspirin (ASPIRIN EC) 81 Mg Tablet.dr, 81 MG PO DAILYWBKFT for CHF for 30 Days, #30 TAB.SR 5 Refills Prov:BRITTNEY SALAS MD 01/01/21 Losartan Potassium (COZAAR ) 50 Mg Tablet, 50 MG PO DAILY for CHF for 30 Days, #30 TAB 5 Refills Prov:BRITTNEY SALAS MD 01/01/21 Carvedilol (CARVEDILOL ) 3.125 Mg Tablet, 3.125 MG PO BIDWMEALS for CHF for 30 Days, #60 TAB 5 Refills Prov:BRITTNEY SALAS MD 01/01/21 Atorvastatin Calcium (ATORVASTATIN CALCIUM) 40 Mg Tablet, 40 MG PO QHS for CHF for 30 Days, #30 TAB 5 Refills Prov:BRITTNEY SALAS MD 01/01/21 Gabapentin (GABAPENTIN ) 100 Mg Capsule, 100 MG PO TID for Neuropathy for 30 Days, #90 CAP 5 Refills Prov:BRITTNEY SALAS MD 01/01/21 Reported Medications Docusate Sodium (COLACE) 100 Mg Capsule, 1 CAP PO BID PRN for CONSTIPATION for 30 Days, #60 CAP 0 Refills 12/28/20 Melatonin (MELATONIN) 3 Mg Tablet, 3 TAB PO QHS for sleep, #30 TAB 2 Refills 12/28/20 Cholecalciferol (Vitamin D3) (Vitamin D3 ) 25 Mcg Tablet, 25 MCG PO DAILY for SUPPLEMENT, TAB 1,000 UNITS = 25 MCG 12/28/20 Ferrous Sulfate (FERROUS SULFATE) 325 Mg Tablet, 1 TAB PO DAILY for supplement, #30 TAB 3 Refills 12/28/20 Hydralazine Hcl (HYDRALAZINE HCL) 25 Mg Tablet, 1 TAB PO BID for htn, #60 TAB 5 Refills 12/28/20 Fluoxetine Hcl (FLUOXETINE HCL) 40 Mg Capsule, 1 CAP PO DAILYWBKFT for depression, #30 CAP 2 Refills 12/28/20 Scheduled Aspirin (Aspirin Ec), 81 MG PO DAILYWBKFT Atorvastatin Calcium (Atorvastatin Calcium), 40 MG PO QHS Carvedilol (Carvedilol ), 3.125 MG PO BIDWMEALS Cholecalciferol (Vitamin D3) (Vitamin D3 ), 25 MCG PO DAILY, (Reported) Ferrous Sulfate (Ferrous Sulfate), 1 TAB PO DAILY, (Reported) Fluoxetine Hcl (Fluoxetine Hcl), 1 CAP PO DAILYWBKFT, (Reported) Gabapentin (Gabapentin ), 100 MG PO TID Hydralazine Hcl (Hydralazine Hcl), 1 TAB PO BID, (Reported) Losartan Potassium (Cozaar ), 50 MG PO DAILY Melatonin (Melatonin), 3 TAB PO QHS, (Reported) Scheduled PRN Docusate Sodium (Colace), 1 CAP PO BID PRN for CONSTIPATION, (Reported) Justicifation of Admission Dx: Justifications for Admission: Justification of Admission Dx: N/A BRITTNEY BRAVO MD Apr 01, 2021 13:02
[2021-04-01] MEDS ORDERED: GABAPENTIN 300 MG CAPSULE. PO SCH (14:00)
[2021-04-01] MEDS ORDERED: HEPARIN for SUB-Q USE 5,000 UNIT/ML VIAL. SQ SCH (14:00)
[2021-04-01] MEDS ORDERED: ATORVASTATIN CALCIUM 40 MG TABLET. PO SCH (21:00)
[2021-04-01] MEDS ORDERED: SENNOSIDES/DOCUSATE 8.6/50MG TABLET. PO SCH (21:00)
[2021-04-02] MEDS ORDERED: FERROUS SULFATE 325 MG TABLET. PO SCH (09:00)
[2021-04-02] MEDS ORDERED: CHOLECALCIFEROL (VITAMIN D3) 1,000 UNIT TABLET PO SCH (09:00)
== END 2021-04-01 12:30 | disposition home or self-care (01) ==
LOC: ER 16:06 → 5 NORTH 17:46 → INTOOBSV 17:46
PROVIDERS: ADMIT Student in an Organized Health Care Education/Training Program; ATTEND Student in an Organized Health Care Education/Training Program
DX: I16.0 Hypertensive urgency (principal); I13.2 Hypertensive heart and chronic kidney disease with heart failure and with stage 5 chronic kidney disease, or end stage renal disease; I50.22 Chronic systolic (congestive) heart failure; N18.6 End stage renal disease; R06.02 Shortness of breath; E78.5 Hyperlipidemia, unspecified; Z91.15 Patient's noncompliance with renal dialysis; Z85.46 Personal history of malignant neoplasm of prostate; Z91.19 Patient's noncompliance with other medical treatment and regimen; Z79.82 Long term (current) use of aspirin; Z99.2 Dependence on renal dialysis; Z79.899 Other long term (current) drug therapy; Z98.890 Other specified postprocedural states
CPT/HCPCS: 36415; 71045; 80053; 80307; 83735; 83880; 84484; 85025; 93005; 96374; 99285; G0378; J0360; G0379

== ENCOUNTER → 2021-06-02 | Outpatient (CLI) | payer MEDICARE ==
--- NOTE | 2021-06-03 15:18 | CARD ---
MR#: [id number] Date of Study: 06/02/2021 Ordering Physician: BALBIR HUDSON, Referring Physician: BALBIR HUDSON, Tech: Jennifer Gao, [facility] APPROVED REPORT EXAM: Two-dimensional and M-mode echocardiogram with Doppler and color Doppler. Other Information Quality : AverageHR: 69bpm INDICATION Congestive Heart Failure RISK FACTORS Hypertension Hyperlipidemia 2D DIMENSIONS Left Atrium(2D)3.4 (1.6-4.0cm)IVSd1.2 (0.7-1.1cm) Aortic Root(2D)3.2 (2.0-3.7cm)LVDd5.8 (3.9-5.9cm) LVOT Diameter2.0 (1.8-2.4cm)PWd1.2 (0.7-1.1cm) LVDs4.7 (2.5-4.0cm)FS (%) 18.4 % SV62.3 mlLVEF(%)37.5 (>50%) Aortic Valve AoV Peak Olegario.183.3cm/sAoV VTI34.6cm AO Peak GR.13.4mmHgLVOT Peak Olegario.112.4cm/s LVOT VTI 20.50cmAO Mean GR.8mmHg SHELLY (VMAX)1.71pr8IKE (VTI)1.95cm2 AI P 1/2 Hxey278bp Mitral Valve MV E Tjaeglwd69.3cm/sMV DECEL HBTK465nx MV A Gmmpaxzm41.4cm/sMV E Mean Gr.2mmHg MV EVD86weO/A Ratio0.7 MVA (PHT)3.12cm2 TDI E/Lateral E'9.3E/Medial E'10.1 Pulmonary Valve PV Peak Rceqjpqx692.8cm/sPV Peak Grad.5mmHg Tricuspid Valve TR P. Qkbuqguc746zj/sRAP FNEGVODZ2trHb TR Peak Gr.00npIrLFCT74gpCb Pulmonary Vein S1 Jjtxkoqz02.7cm/sD2 Byakgawd35.1cm/s PVa [id number] LEFT VENTRICLE The Left Ventricle is mildly dilated. There is severe concentric left ventricular hypertrophy. The sy stolic function is mildly reduced. EF 45% There is global hypokinesis of the left ventricle. Transmit ral Doppler flow pattern is Grade I-abnormal relaxation pattern. RIGHT VENTRICLE The right ventricle is borderline dilated. There is normal right ventricular wall thickness. The righ t ventricular systolic function is normal. ATRIA The left atrium is mildly to moderately dilated. The right atrium is borderline dilated. The interatr ial septum is intact with no evidence for an atrial septal defect or patent foramen ovale as noted on 2-D or Doppler imaging. AORTIC VALVE The aortic valve is normal in structure and function. Doppler and Color Flow revealed mild aortic reg urgitation. There is no significant aortic valvular stenosis. Calculated aortic valve area is 2.05 cm 2 with maximum pressure gradient of 15 mmHg and mean pressure gradient of 8 mmHg. MITRAL VALVE The mitral valve is normal in structure and function. There is no evidence of mitral valve prolapse. There is no mitral valve stenosis. Doppler and Color-flow revealed trace mitral regurgitation. TRICUSPID VALVE The tricuspid valve is normal in structure and function. Doppler and Color Flow revealed trace to mil d tricuspid regurgitation with an estimated PAP of 38 mmHg. There is no tricuspid valve stenosis. PULMONIC VALVE Doppler and Color Flow revealed moderate pulmonic valvular regurgitation. There is no pulmonic valvul ar stenosis. GREAT VESSELS The aortic root is normal in size. The IVC is normal in size and collapses >50% with inspiration. PERICARDIAL EFFUSION There is no evidence of significant pericardial effusion. Critical Notification Critical Value: No <Conclusion> There is severe concentric left ventricular hypertrophy. The systolic function is mildly reduced. EF 45% There is global hypokinesis of the left ventricle. Doppler and Color Flow revealed mild aortic regurgitation. Signed by : Hardik Saeed, Electronically Approved : 06/03/2021 15:18:05
== END ==
LOC: ECHO 12:51
PROVIDERS: ATTEND Internal Medicine Cardiovascular Disease
DX: I08.8 Other rheumatic multiple valve diseases (principal); I50.22 Chronic systolic (congestive) heart failure
CPT/HCPCS: 93306; C8929